=== PATIENT | male | born 1945 | race Hispanic/Latino ===

== ENCOUNTER 2018-03-28 17:08 | Emergency (ER) | payer SELFPAY ==
[2018-03-28 19:30] LABS: #Eosinphils 0.1 thou/uL (0.0-0.7); #Lymphocytes 1.9 thou/uL (1.20-3.40); #Monocytes 0.8 thou/uL (0.11-0.59); #Neutrophils 4.7 thou/uL (1.40-6.50); %Basophils 0.6 % (0.0-1.0); %Eosinophils 0.7 % (0.0-10.0); %Monocytes 10.6 % (0.0-10.0); %Neutrophils 63.1 % (42.0-75.0); Hemoglobin 12.3 g/dL (14.0-18.0); Mean Corpuscular HGB CONC 33.3 g/dL (32.0-36.0); Mean Corpuscular Hemoglobin 31.2 pg (27.0-31.0); Mean Corpuscular Volume 93.5 fL (78.0-98.0); Mean Platelet Volume 7.3 fL (7.4-10.4); Platelet Count 157 thou/uL (130-400); RBC Distribution Width 15.6 % (11.5-14.5); Red Blood Cell (RBC) Count 3.94 mill/uL (4.70-6.10); White Blood Cell (WBC) Count 7.4 thou/uL (4.8-10.8)
[2018-03-28 19:51] LABS: ALT (SGPT) 20 U/L (8-55); AST (SGOT) 22 U/L (5-34); Albumin 4.1 g/dL (3.4-4.8); Alkaline Phosphatase 236 U/L (40-150); Anion Gap 18 mmol/L (10-20); BUN (Urea Nitrogen) 31 mg/dL (8.4-25.7); Bilirubin, Total 0.3 mg/dL (0.2-1.2); CK (CPK) 25 U/L (30-200); Calc. Creatinine Clearance 0 mL/min (70-130); Calcium 9.5 mg/dL (7.8-10.44); Carbon Dioxide 19 mmol/L (23-31); Chloride 103 mmol/L (98-107); Estimated GFR-MDRD 67; Globulin 2.3 g/dL (2.4-3.5); Glucose 136 mg/dL (83-110); Protein, Total 6.4 g/dL (5.8-8.1); Sodium 136 mmol/L (136-145)
--- NOTE | 2018-03-28 20:55 | CT ---
CT LUMBAR SPINE WITHOUT CONTRAST: INDICATIONS: History of multiple myeloma and prior back surgeries. FINDINGS: There are diffuse lytic lesions involving the visualized pelvis, sacrum, and lower lumbar spine, cons istent with the patient's history of multiple myeloma. There is postsurgical change of a laminectomy at L4-L5. There are age indeterminate pathologic compression fractures of L5, L4, L3, L2, L2, and T12, of undet ermined chronicity. There is retropulsion of bone fragments from the posterior-inferior aspect of L4 , inducing at least moderate narrowing of the central canal, but this area has undergone some posteri or decompression. Some residual moderate narrowing is seen at the L4 level, due to the lamina and th e retropulsed bone fragments from L4. This is most evident on image 35 of the sagittal series. The visualized retroperitoneum demonstrates mild vascular calcifications involving the abdominal aort a. The visualized aspects of the unopacified kidneys are unremarkable. There are minimally displaced bilateral sacral ala and sacral promontory insufficiency fractures. IMPRESSION: Diffuse, moth-eaten lucencies involving the visualized thoracolumbosacral spine, consistent with the patient's history of multiple myeloma. There are numerous compression abnormalities involving T12 th rough L5, of undetermined chronicity. There are bilateral sacral ala and sacral promontory insuffici ency fractures of undetermined chronicity. There is post surgical change of decompression at L4-L5. There is residual moderate narrowing at L4 due to posterior retropulsion of bone fragments from the posterior aspect of L4. POS: JESUS
--- NOTE | 2018-03-28 21:04 | CT ---
CT THORACIC SPINE WITHOUT CONTRAST: INDICATIONS: History of low back pain with onset one year prior to arrival with worsening symptoms. History of mu ltiple myeloma. FINDINGS: There are numerous lucent lesions involving the visualized thoracolumbar spine, consistent with the p atient's history of multiple myeloma. There are multilevel pathologic compression abnormalities invo lving the thoracic spine, most pronounced at T6, T7, T10, and T12. No severe central canal narrowing is evident. There are numerous lytic lesions involving the visualized aspects of the ribs. There i s subsegmental volume loss involving both lower lobes. There are scattered vascular calcifications i nvolving the thoracic aorta. IMPRESSION: Inumerable lytic lesions involving the thoracolumbar spine, consistent with the patient's history of multiple myeloma. There are pathologic compression fractures involving all thoracic spine vertebrae but most severely affecting the T6, T7, T10, and T12 vertebral levels. POS: [facility]
[2018-03-28 21:36] LABS: Bilirubin Negative (Negative); Blood, Urine Negative (Negative); Clarity CLEAR (Clear); Glucose, Urine (Dipstick) Negative (Negative); Leukocyte Small (Negative); Nitrite Negative (Negative); Protein, Urine (Dipstick) Trace mg/dL (Neg-Trace); Specific Gravity, Urine 1.028 (1.002-1.036); Urobilinogen 0.2 mg/dL (0.2-1.0)
[2018-03-28 21:38] LABS: Bacteria/HPF None Seen HPF (None Seen); Hyaline Casts/LPF 7-10 HYALINE CAST LPF (0-3 Hyaline); Pathc Cast-AUWi Flag 0.58 (0-2.49); RBC/HPF 0-3 HPF (0-3); Squamous Epithelial 0-3 HPF (0-3)
[2018-03-28 21:47] LABS: Crystals/HPF 1+ CA OXALATE HPF (Negative)
[2018-03-28] MEDS ORDERED: HYDROcodone/Acetaminophen 10/325 mg Tablet ONE (22:12)
== END 2018-03-28 23:10 | disposition home or self-care (01) ==
LOC: ERS 17:08
DX: C90.00 Multiple myeloma not having achieved remission (principal); M48.56XA Collapsed vertebra, not elsewhere classified, lumbar region, initial encounter for fracture; E11.9 Type 2 diabetes mellitus without complications
CPT/HCPCS: 72128; 72131; 80053; 81003; 81015; 82550; 85025; 93005

== ENCOUNTER 2018-04-14 00:04 | Inpatient (IN) | payer MEDICAID, SELFPAY ==
[2018-04-14 00:19] LABS: Base Excess-Venous 0.7 mmol/L (0 (+/- 2.5)); Bicarbonate (HCO3v) 24.8 mmol/L (1.0-85.0); CO2 Tension (PvCO2) 36.9 mmHg (41.0-51.0); Calcium, Ionized 1.28 mmol/L (1.12-1.32); Hemoglobin - Calc 11.8 g/dL (12.0-18.0); Lactate 2.35 mmol/L (0.50-2.20); O2 Tension (PvO2) 37.9 mmHg (35.0-45.0); Potassium 4.4 mmol/L (3.4-4.7); T. Carbon Dioxide 25.9 mmol/L (1.0-85.0); pH (Venous) 7.435 (7.35-7.45); vO2 Saturation-calc 74.1 % (94-98)
[2018-04-14] MEDS ORDERED: Azithromycin 500 MG VIAL ONE (00:36)
[2018-04-14 00:38] LABS: INR-International Normal Ratio 1.1; PTT 31.8 SEC (22.9-36.1); Prothrombin Time 13.9 SEC (12.0-14.7)
[2018-04-14 00:50] LABS: ALT (SGPT) 14 U/L (8-55); AST (SGOT) 20 U/L (5-34); Albumin 3.9 g/dL (3.4-4.8); Alkaline Phosphatase 207 U/L (40-150); Anion Gap 19 mmol/L (10-20); BUN (Urea Nitrogen) 16 mg/dL (8.4-25.7); Bilirubin, Total 0.5 mg/dL (0.2-1.2); CK (CPK) 43 U/L (30-200); Calc. Creatinine Clearance 0 mL/min (70-130); Calcium 10.3 mg/dL (7.8-10.44); Carbon Dioxide 20 mmol/L (23-31); Chloride 103 mmol/L (98-107); Estimated GFR-MDRD 77; Globulin 2.9 g/dL (2.4-3.5); Glucose 222 mg/dL (83-110); Potassium 4.7 mmol/L (3.5-5.1); Protein, Total 6.8 g/dL (5.8-8.1); Sodium 137 mmol/L (136-145)
[2018-04-14 00:52] LABS: CKMB 1.3 ng/mL (0-6.6)
[2018-04-14 00:55] LABS: Band 12 % (5-11); Hemoglobin 11.4 g/dL (14.0-18.0); Lymphocytes 22 % (21-51); MDiff Complete? YES; Mean Corpuscular HGB CONC 32.7 g/dL (32.0-36.0); Mean Corpuscular Hemoglobin 29.9 pg (27.0-31.0); Mean Corpuscular Volume 91.5 fL (78.0-98.0); Mean Platelet Volume 7.4 fL (7.4-10.4); Monocytes 4 % (0-10); Myelocyte 2 % (0-0); Neutrophil 60 % (42-75); Platelet Count 171 thou/uL (130-400); RBC Distribution Width 15.4 % (11.5-14.5); White Blood Cell (WBC) Count 10.6 thou/uL (4.8-10.8)
[2018-04-14] MEDS ORDERED: cefTRIAXone\\ROCEPHIN 2 GM VIAL ONE (00:58)
[2018-04-14] MEDS ORDERED: Senokot S 8.6-50 MG TAB PO PRN (01:01)
[2018-04-14] MEDS ORDERED: Dextrose 50% Abboject 50 ML SYRINGE SLOW IVP PRN (01:07)
[2018-04-14] MEDS ORDERED: Dextrose 5% in Water 1,000 ML IV PRN (01:07)
[2018-04-14] MEDS ORDERED: HumaLOG 300 UNITS/3 ML VIAL SC PRN (01:07)
[2018-04-14 01:42] LABS: Bilirubin Negative (Negative); Blood, Urine Negative (Negative); Clarity CLEAR (Clear); Glucose, Urine (Dipstick) Negative (Negative); Leukocyte Negative (Negative); Nitrite Negative (Negative); Protein, Urine (Dipstick) 30 mg/dL (Neg-Trace); Specific Gravity, Urine 1.025 (1.002-1.036)
[2018-04-14 01:45] LABS: Bacteria/HPF None Seen HPF (None Seen); Pathc Cast-AUWi Flag 2.47 (0-2.49); Squamous Epithelial 0-3 HPF (0-3)
[2018-04-14 01:54] LABS: Hyaline Casts/LPF NONE SEEN LPF (0-3 Hyaline); RBC/HPF None Seen HPF (0-3); Renal Epithelial None Seen HPF (0-3); Transitional Epithelial NONE SEEN HPF (0-3)
[2018-04-14] MEDS: Vancomycin HCl 1 GM in Premix Bag 1 BAG IVPB SCH ×2 (03:08→16:00)
[2018-04-14] MEDS: Sodium Chloride 0.9% 1,000 ML IV SCH (03:08)
[2018-04-14 03:58] LABS: Anion Gap 12 mmol/L (10-20); BUN (Urea Nitrogen) 13 mg/dL (8.4-25.7); Calc. Creatinine Clearance 59 mL/min (70-130); Carbon Dioxide 21 mmol/L (23-31); Chloride 110 mmol/L (98-107); Estimated GFR-MDRD Greater than 90; Glucose 172 mg/dL (83-110); Lactic Acid 1.2 mmol/L (0.5-2.2); Potassium 4.1 mmol/L (3.5-5.1); Sodium 139 mmol/L (136-145)
[2018-04-14 04:08] LABS: Troponin I 0.068 ng/mL (< 0.028)
[2018-04-14 04:26] LABS: Band 11 % (5-11); Eosinophils 1 % (0-10); Hemoglobin 9.7 g/dL (14.0-18.0); Lymphocytes 9 % (21-51); MDiff Complete? YES; Mean Corpuscular HGB CONC 33.7 g/dL (32.0-36.0); Mean Corpuscular Hemoglobin 31.5 pg (27.0-31.0); Mean Corpuscular Volume 93.6 fL (78.0-98.0); Mean Platelet Volume 6.9 fL (7.4-10.4); Monocytes 6 % (0-10); Neutrophil 73 % (42-75); Platelet Count 129 thou/uL (130-400); RBC Distribution Width 15.3 % (11.5-14.5); Red Blood Cell (RBC) Count 3.09 mill/uL (4.70-6.10)
--- NOTE | 2018-04-14 04:41 | HP ---
CHIEF COMPLAINT: Shortness of breath. HISTORY OF PRESENT ILLNESS: The patient is a 72-year-old male with past medical history of diabetes and hypertension who presented to the hospital with complaints of shortness of breath and cough. The patient's family is at the bedside does not have very much information since the patient lives with another family member. The patient stated that for about a week he has been feeling some cough with phlegm and also has been feeling very weak. However, today patient started feeling very short of jean carlos ath and became very diaphoretic, at this time he was brought into the hospital for further evaluation . The patient denies any chest pain, any nausea, vomiting or diarrhea. The patient states that he h as been actually constipated and is also complaining of some lower abdominal pain that comes and goes . The patient denies any fevers or chills at home. PAST MEDICAL HISTORY: He has been diagnosed with multiple myeloma. PAST SURGICAL HISTORY: He has had some back surgery x2. SOCIAL HISTORY: He denies any alcohol use or drug use. He did smoke, but when he was very young. I t was only for social reasons. ALLERGIES: He has no known drug allergies. MEDICATIONS: The patient takes [place] 10/325 q.6 hours p.r.n. for pain and methocarbamol 500 mg 3 thad es a day. FAMILY HISTORY: Denies any history of heart disease or diabetes or hypertension. PHYSICAL EXAMINATION: VITAL SIGNS: Temperature of 99.0. The patient's initially oxygen saturations were 87 on room air; h owever, he was put on BiPAP and his sats have been 98%. His blood pressure has been in the 150s over 80s. The patient's initially pulse was 145 after giving him some IV fluids. His pulse is now 113. GENERAL: He is awake, alert, has a BiPAP on. He is lying flat. States he feels much better. CARDIOVASCULAR: S1, S2 present, tachycardia. LUNGS: He has got some coarse rhonchi all over his lung area. No wheezes noted. ABDOMEN: Soft. Bowel sounds are present x2. He does have mild pain upon palpation of his abdomen. EXTREMITIES: Lower extremity edema, none present. Pedal pulses are present x2. NEUROLOGIC: Neurovascular zamorano, no focal deficits noted. SKIN: No cuts or lesions noted. EKG, the patient had some incomplete right bundle branch block and also has some sinus tachycardic. The patient did have a chest x-ray, which indicated cardiomegaly and diffuse interstitial infiltrates . LABORATORY RESULTS: As of the following: WBC of 10.6, hemoglobin of 11.4, hematocrit of 34.8, plate lets were 171. Chemistry: Sodium of 137, potassium of 4.4, BUN of 16, creatinine of 0.96, glucose o f 222. Lactic acid was 2.4. Alkaline phosphatase was 207. His troponin x1 was negative. BNP was 7 8. ASSESSMENT AND PLAN: The patient is a very pleasant 72-year-old male who presents to the hospital wi th complaints of shortness of breath and increased sputum production. 1. Acute hypoxemic respiratory failure. The patient initially was oxygen saturation of 87. He was put on BiPAP, which improved to 98. The patient will be started on some DuoNebs, also, broad spectru m antibiotics and also I am hesitant to put him on some steroids. We are going to see what the chest CT scan shows and then we will go from there. The patient's BNP was completely normal, unlikely to be heart failure; however, we will continue to monitor. The patient is currently admitted to the [facility]. We will also check influenza to rule out flu and also we will order some Tessalon Perles for cough. 2. Multiple myeloma. The patient has a recent diagnosis of multiple myeloma. He was in our ER keiko ier this month for some lower back pain. At this time, CT lumbar and thoracic spine was done which i ndicated patient had diffuse lucencies involving the visualized thoracolumbosacral spine area c onsistent with multiple myeloma. I did talk with the family in regards to this. They stated that cu rrently patient is not on any treatment and again the family that patient resides that is not current ly present. 3. Deep venous thrombosis prophylaxis. We will put patient on some SCDs or heparin. 4. Lactic acidosis. This is most likely secondary to patient's problem #1. 5. Most likely pneumonia. We will continue to monitor. We will continue IV antibiotics.
[2018-04-14] MEDS: Piperacillin/Tazobactam 3.375 GM in Sodium Chloride 0.9% 100 ML IVPB SCH ×4 (05:32→23:05)
[2018-04-14] MEDS: Acetaminophen 325 MG TAB PO PRN ×3 (05:58→20:28)
[2018-04-14 08:03] LABS: Troponin I 0.121 ng/mL (< 0.028)
--- NOTE | 2018-04-14 08:03 | CT ---
PRELIMINARY REPORT/[facility]/EMERGENTY AFTER-HOURS PROCEDURE Addendum created by Oleg Torrez MD on 04/14/2018 2:55 AM Central Time ([place] & [place]) Age indeterminat e lumbar spine compression fractures are also present. Initial Report created on 04/14/2018 2:50 AM Central Time ([place] & [place]) CT Chest Without Contrast EXAM DATE/TIME: 04/14/2018 1:53 AM CLINICAL HISTORY: 72 years old, male; Pain and signs and symptoms; Abdominal tenderness; Abdominal pain; Generalized; D yspnea and shortness of breath; Other: SOB; Patient HX: M72 reports to ed C/O cough. PT has been weak , SOB, difficulty breathing, diaphoretic. PT C/O defuse abdominal pain; TECHNIQUE: Axial computed tomography images of the chest without intravenous contrast. COMPARISON: No relevant prior studies available. FINDINGS: Thyroid: The visualized thyroid gland is unremarkable. Lungs: There are moderate bilateral lung dependent consolidations/atelectasis. Pleural space: Normal. No pneumothorax. No pleural effusion. Heart: The cardiac structures are normal. Mediastinum: The trachea is normal. Pulmonary arteries: The pulmonary arteries are not enlarged. Aorta: The aorta is normal. Lymph nodes: Unremarkable. No enlarged lymph nodes. Bones/joints: There is diffuse mottled appearance of the bones, may represent severe diffuse osteopen ia, metabolic or possibly neoplastic change. There are healed right rib fractures. There are healed l eft rib fractures. There are age-indeterminate compression fractures within the mid thoracic spine. T here is healed fracture of the LEFT scapula. Soft tissues: Unremarkable. IMPRESSION: 1. There are moderate bilateral lung dependent consolidations/atelectasis. Correlate for infection ve rsus atelectasis. 2. There is diffuse mottled appearance of the bones, may represent severe diffuse osteopenia, metabol ic or possibly neoplastic change. CT Abdomen and Pelvis Without Intravenous Contrast EXAM DATE/TIME: 04/14/2018 1:53 AM CLINICAL HISTORY: 72 years old, male; Pain and signs and symptoms; Abdominal tenderness; Abdominal pain; Generalized; D yspnea and shortness of breath; Other: SOB; Patient HX: M72 reports to ed C/O cough. PT has been weak , SOB, difficulty breathing, diaphoretic. PT C/O defuse abdominal pain; TECHNIQUE: Axial computed tomography images of the abdomen and pelvis without intravenous contrast. COMPARISON: No relevant prior studies available. FINDINGS: ABDOMEN: Liver: The liver is within normal limits for this noncontrast study. Gallbladder and bile ducts: The gallbladder is normal. There is no evidence of biliary ductal dilatio n. Pancreas: The pancreas appears normal. No ductal dilatation. Spleen: The spleen is normal. Adrenals: The adrenal glands are normal. The adrenal glands are normal. Kidneys and ureters: The kidneys appear normal. No hydronephrosis. Stomach and bowel: The stomach is normal. Appendix: No appendix is specifically identified. No associated signs to suggest acute appendicitis. PELVIS: Bladder: The bladder is normal. Reproductive: The prostate gland and seminal vesicles are normal. ABDOMEN and PELVIS: Intraperitoneal space: Normal. No free air. No significant fluid collection. Bones/joints: There is diffuse mottled appearance of the bones, may represent severe diffuse osteopen ia, metabolic or possibly neoplastic change. There are healed fractures of the LEFT pubic rami with p ersistent displacement. Soft tissues: Unremarkable. Vasculature: Normal. No abdominal aortic aneurysm. Lymph nodes: Normal. No enlarged lymph nodes. IMPRESSION: There is diffuse mottled appearance of the bones, may represent severe diffuse osteopenia, metabolic or possibly neoplastic change. No acute abdominal pelvic pathology. Thank you for allowing us to participate in the care of your patient. Dictated and Authenticated by: Oleg Torrez MD 04/14/2018 2:50 AM Central Time ([place] & [place]) FINAL REPORT CHEST AND ABDOMEN AND PELVIC CT SCAN WITHOUT IV CONTRAST: Emergency after hour exam at 0159 hours, 04-14-18. FINDINGS: Bilateral posterior lower lobe parenchymal changes evidence for pneumonia and/or atelectasis. Very se may heterogeneous bony demineralization with some focal areas more concerning for the potential of n eoplastic change. Metabolic and very severe osteopenic changes are additional considerations as well. Multiple age indeterminate lumbar and thoracic vertebral compression fractures. Extensive bilateral rib fractures which appear old. No renal calculi or obstruction. No significant acute process with in the abdomen or pelvis. Left pelvic fractures which appear old. Code QA/Agree with [facility]. POS: [facility]
[2018-04-14] MEDS ORDERED: Prevnar 13-Val Conj/PF 0.5 ML SYRINGE IM ONE (09:00)
[2018-04-14] MEDS: Heparin 5,000 UNITS/ML VIAL SC SCH ×2 (09:00→16:00)
--- NOTE | 2018-04-14 09:38 | RAD ---
CHEST ONE VIEW: History: Dyspnea. Comparison: None. FINDINGS: There are bibasilar airspace opacities. There are bilateral rib fractures, nondisplaced. Bone are alena rly osteopenic. Multiple compression deformities throughout the skeleton. IMPRESSION: 1. Bibasilar airspace opacities may reflect atelectasis or infection. 2. Severe osteopenia versus diffuse myelomatous change. Work up for myeloma recommended. POS: PATRICIAH
--- NOTE | 2018-04-14 11:42 | CON ---
DATE OF CONSULTATION: 04/14/2018 HISTORY OF PRESENT ILLNESS: A 72-year-old gentleman from [place]. There are 2 daalizae rs who speak little Thai. The patient speaks no Thai, presented to the hospital with fever, ch ills, and a cough as per the daughter with a broken Thai. He apparently does not smoke, does not drink. PAST MEDICAL HISTORY: Pertinent for hypertension and diabetes. PAST SURGICAL HISTORY: Apparently, there are two back surgeries. MEDICATIONS: From home includes [place] for pain and methocarbamol for back pain. Previous surgeries as noted. ALLERGIES: Apparently none. REVIEW OF SYSTEMS: Otherwise, 10-point negative. PHYSICAL EXAMINATION: GENERAL: He is on a BiPAP when he came in. He is no longer in a BiPAP. His room air sats are 100%, pulse 104, blood pressure 140/80, respiration 28. CHEST: With minimal rhonchi and crackles. CARDIAC: Normal S1, S2, no gallops. ABDOMEN: Soft, no masses. NEUROLOGIC: He is awake, responsive. EXTREMITIES: No edema. LABORATORY DATA AND IMAGING: White count 10,000, H&H is 9 and 28, platelet count 129. His BNP was n ormal. Urine test was normal. He had a chest x-ray taken, which really did not show any acute infil trates. He underwent CT abdomen, chest, and pelvis which then shows bibasilar infiltrates with evidence of os teopenia in his lumbar spine. IMPRESSION: 1. bronchopneumonia. 2. Diabetes. 3. Hypertension. PLAN: He is on broad-spectrum antibiotics. No culture was ordered on his sputum . Deescalate antibiotics as the cultures are back. This is a 70 minute consultation note in which 50% was spent in direct patient care.
[2018-04-15] MEDS: Vancomycin HCl 1 GM in Premix Bag 1 BAG IVPB SCH ×2 (03:21→16:14)
[2018-04-15] MEDS: Piperacillin/Tazobactam 3.375 GM in Sodium Chloride 0.9% 100 ML IVPB SCH ×2 (05:34→13:01)
[2018-04-15 06:21] VITALS: BMI 26.6
[2018-04-15] MEDS: Acetaminophen 325 MG TAB PO PRN (09:12)
[2018-04-15] MEDS: guaiFENesin ER 600 MG TAB PO SCH ×2 (09:12→20:09)
[2018-04-15] MEDS: Sodium Chloride 0.9% 1,000 ML IV SCH (13:04)
--- NOTE | 2018-04-15 14:15 | PDOC.PN ---
- Subjective Encounter Start Date: 04/15/18 Encounter Start Time: 10:30 Subjective: pt up in bed feels much better - Objective Resuscitation Status: Resuscitation Status FULL:Full Resuscitation Vital Signs & Weight: Vital Signs (12 hours) Temp Pulse Resp BP Pulse Ox 04/15/18 12:00 97.3 F L 101 H 16 137/67 04/15/18 10:37 92 20 95 04/15/18 08:00 97.7 F 88 18 135/63 93 L 04/15/18 06:18 94 L 04/15/18 06:15 90 20 94 L 04/15/18 04:00 98.3 F 92 20 138/65 92 L 04/15/18 02:17 96 Weight Weight 141 lb Most Recent Monitor Data Heart Rate from ECG 98 NIBP 116/65 NIBP BP-Mean 82 Respiration from ECG 36 SpO2 100 I&O: 04/14/18 04/15/18 04/16/18 06:59 06:59 06:59 Intake Total 3480 2480 480 Output Total 410 710 Balance 3070 1770 480 Result Diagrams: 04/14/18 03:29 04/14/18 03:29 Additional Labs: Accuchecks 04/15/18 04/14/18 04/14/18 11:39 20:28 17:03 POC Glucose 143 H 138 H 133 H Phys Exam - Physical Examination Neck: no nodes, no JVD, supple, full ROM mild rhonchi Cardiovascular: RRR, no significant murmur, no rub, gallop, irregular Gastrointestinal: soft, non-tender, no distention, positive bowel sounds Musculoskeletal: no edema, pulses present, edema present Dx/Plan (1) Pneumonia Code(s): J18.9 - PNEUMONIA, UNSPECIFIED ORGANISM Status: Acute (2) Multiple myeloma Code(s): C90.00 - MULTIPLE MYELOMA NOT HAVING ACHIEVED REMISSION Status: Acute - Plan will continue abx for now -: will discontiue zosyn and continue vanco and levaquin -: pt to see oncology next week * . Review of Systems - Review of Systems Cardiovascular: negative: chest pain, palpitations, orthopnea, paroxysmal nocturnal dyspnea, edema, light headedness, other Gastrointestinal: negative: Nausea, Vomiting, Abdominal Pain, Diarrhea, Constipation, Melena, Hematochezia, Other Genitourinary: negative: Dysuria, Frequency, Incontinence, Hematuria, Retention , Other - Medications/Allergies Allergies/Adverse Reactions: Allergies Allergy/AdvReac Type Severity Reaction Status Date / Time No Known Allergies Allergy Verified 04/14/18 03:25 Medications: Current Medications Acetaminophen (Tylenol) 650 mg PO Q4H PRN PRN Reason: Headache/Fever/Mild Pain (1-3) Last Admin: 04/15/18 09:12 Dose: 650 mg Hydrocodone Bitart/Acetaminophen ([place] 10/325) 1 tab PO Q6HR [facility] Albuterol/Ipratropium (Duoneb) 3 ml NEB [id number] [facility] Last Admin: 04/15/18 10:37 Dose: 3 ml Dextrose/Water (Dextrose 50%) 25 gm SLOW IVP PRN PRN PRN Reason: Hypoglycemia Glucagon (Glucagon) 1 mg IM PRN PRN PRN Reason: Hypoglycemia Guaifenesin (Mucinex) 600 mg PO BID [facility] Last Admin: 04/15/18 09:12 Dose: 600 mg Sodium Chloride (Normal Saline 0.9%) 1,000 mls @ 30 mls/hr IV .Q24H [facility] Last Admin: 04/15/18 13:04 Dose: 1,000 mls Piperacillin Sod/Tazobactam (Sod 3.375 gm/ Sodium Chloride) 100 mls @ 200 mls/ hr IVPB Q6HR [facility] Last Admin: 04/15/18 13:01 Dose: 100 mls Vancomycin HCl 1 gm/ Device 200 mls @ 200 mls/hr IVPB 0300,1500 [facility] Last Admin: 04/15/18 03:21 Dose: 200 mls Dextrose/Water (D5w) 1,000 mls @ 0 mls/hr IV .Q0M PRN PRN Reason: Hypoglycemia Levofloxacin 500 mg/ Device 100 mls @ 100 mls/hr IVPB DAILY [facility] Last Admin: 04/15/18 09:12 Dose: 100 mls Insulin Human Lispro (Humalog) 0 units SC .MILD SLIDING SCALE PRN PRN Reason: Mild Correctional Scale Last Admin: 04/14/18 11:12 Dose: 2 unit Methocarbamol (Robaxin) 500 mg PO TID [facility] Senna/Docusate Sodium (Senokot S) 2 tab PO BIDPRN PRN PRN Reason: Constipation Sodium Chloride (Flush - Normal Saline) 10 ml IVF PRN PRN PRN Reason: Saline Flush Last Admin: 04/15/18 05:34 Dose: 10 ml
[2018-04-15 16:09] LABS: Vancomycin, Trough 11.1 ug/mL
[2018-04-15] MEDS: Methocarbamol 500 MG TAB PO SCH ×2 (16:15→20:09)
[2018-04-15] MEDS: HYDROcodone/Acetaminophen 10/325 mg Tablet PO SCH (18:18)
[2018-04-16] MEDS: HYDROcodone/Acetaminophen 10/325 mg Tablet PO SCH ×5 (00:42→23:07)
[2018-04-16] MEDS: Vancomycin HCl 1 GM in Premix Bag 1 BAG IVPB SCH (02:22)
[2018-04-16] MEDS: Methocarbamol 500 MG TAB PO SCH ×3 (09:40→20:32)
[2018-04-16] MEDS: guaiFENesin ER 600 MG TAB PO SCH ×2 (09:40→20:32)
[2018-04-16 10:04] LABS: Anion Gap 13 mmol/L (10-20); BUN (Urea Nitrogen) 6 mg/dL (8.4-25.7); Calc. Creatinine Clearance 93 mL/min (70-130); Calcium 9.3 mg/dL (7.8-10.44); Carbon Dioxide 20 mmol/L (23-31); Chloride 106 mmol/L (98-107); Estimated GFR-MDRD Greater than 90; Glucose 101 mg/dL (83-110); Potassium 3.2 mmol/L (3.5-5.1); Sodium 136 mmol/L (136-145)
[2018-04-16] MEDS: Sodium Chloride 0.9% 1,000 ML IV SCH (12:08)
--- NOTE | 2018-04-16 13:01 | PDOC.PN ---
- Subjective Encounter Start Date: 04/16/18 Encounter Start Time: 11:15 Subjective: pt up in bed feels better today - Objective Resuscitation Status: Resuscitation Status FULL:Full Resuscitation Vital Signs & Weight: Vital Signs (12 hours) Temp Pulse Resp BP Pulse Ox 04/16/18 10:04 85 16 98 04/16/18 07:20 98.7 F 73 18 137/52 L 93 L 04/16/18 07:01 78 16 97 04/16/18 04:00 98.6 F 62 18 135/73 92 L 04/16/18 02:23 68 18 98 Weight Weight 141 lb Most Recent Monitor Data Heart Rate from ECG 98 NIBP 116/65 NIBP BP-Mean 82 Respiration from ECG 36 SpO2 100 I&O: 04/15/18 04/16/18 04/17/18 06:59 06:59 06:59 Intake Total 2480 2125 Output Total 710 200 Balance 1770 1925 Result Diagrams: 04/14/18 03:29 04/16/18 09:29 Additional Labs: Accuchecks 04/16/18 04/16/18 04/15/18 11:04 05:27 20:37 POC Glucose 137 H 107 142 H 04/15/18 17:38 POC Glucose 173 H Phys Exam - Physical Examination Respiratory: wheezing present Cardiovascular: RRR, no significant murmur, no rub, gallop, irregular Gastrointestinal: soft, non-tender, no distention, positive bowel sounds Musculoskeletal: no edema, pulses present, edema present Dx/Plan (1) Pneumonia Code(s): J18.9 - PNEUMONIA, UNSPECIFIED ORGANISM Status: Acute (2) Multiple myeloma Code(s): C90.00 - MULTIPLE MYELOMA NOT HAVING ACHIEVED REMISSION Status: Acute - Plan will stop vanco and continue levaquin for now -: continue pain meds for his back pain -: pt has multiple myeloma has an appointment with onc next week * . Review of Systems - Review of Systems Respiratory: Cough, Shortness of Breath Cardiovascular: negative: chest pain, palpitations, orthopnea, paroxysmal nocturnal dyspnea, edema, light headedness, other Gastrointestinal: negative: Nausea, Vomiting, Abdominal Pain, Diarrhea, Constipation, Melena, Hematochezia, Other - Medications/Allergies Allergies/Adverse Reactions: Allergies Allergy/AdvReac Type Severity Reaction Status Date / Time No Known Allergies Allergy Verified 04/14/18 03:25 Medications: Current Medications Acetaminophen (Tylenol) 650 mg PO Q4H PRN PRN Reason: Headache/Fever/Mild Pain (1-3) Last Admin: 04/15/18 09:12 Dose: 650 mg Hydrocodone Bitart/Acetaminophen ([place] 10/325) 1 tab PO Q6HR [facility] Last Admin: 04/16/18 12:39 Dose: 1 tab Albuterol/Ipratropium (Duoneb) 3 ml NEB [id number] [facility] Last Admin: 04/16/18 10:04 Dose: 3 ml Dextrose/Water (Dextrose 50%) 25 gm SLOW IVP PRN PRN PRN Reason: Hypoglycemia Glucagon (Glucagon) 1 mg IM PRN PRN PRN Reason: Hypoglycemia Guaifenesin (Mucinex) 600 mg PO BID [facility] Last Admin: 04/16/18 09:40 Dose: 600 mg Sodium Chloride (Normal Saline 0.9%) 1,000 mls @ 30 mls/hr IV .Q24H [facility] Last Admin: 04/16/18 12:08 Dose: Not Given Dextrose/Water (D5w) 1,000 mls @ 0 mls/hr IV .Q0M PRN PRN Reason: Hypoglycemia Levofloxacin 500 mg/ Device 100 mls @ 100 mls/hr IVPB DAILY [facility] Last Admin: 04/16/18 09:40 Dose: 100 mls Insulin Human Lispro (Humalog) 0 units SC .MILD SLIDING SCALE PRN PRN Reason: Mild Correctional Scale Last Admin: 04/14/18 11:12 Dose: 2 unit Methocarbamol (Robaxin) 500 mg PO TID [facility] Last Admin: 04/16/18 09:40 Dose: 500 mg Senna/Docusate Sodium (Senokot S) 2 tab PO BIDPRN PRN PRN Reason: Constipation Sodium Chloride (Flush - Normal Saline) 10 ml IVF PRN PRN PRN Reason: Saline Flush Last Admin: 04/15/18 20:09 Dose: 10 ml
--- NOTE | 2018-04-16 16:55 | PRG ---
DATE OF SERVICE: 04/16/2018 SUBJECTIVE: Marisa Harden was seen today. His son says he is doing much better. OBJECTIVE: VITAL SIGNS: He is afebrile. Heart rates in the 70s, respiratory rate is 18, oximetry is 97 on room air, blood pressure 137/52. LUNGS: Still remarkable for crackles at his right base. HEART: Regular rhythm. ABDOMEN: Soft and nontender. He is encouraged to walk in the [place]. His electrolytes were remarkable only for a potassium of 3.2. IMPRESSION: Pneumonia, clinically improving. He is probably a candidate for discharge home within 24 hours. He will need to have a followup radiograph in 3-4 weeks after he was discharged. He does not need to stay on IV antibiotics at this point given his clinical improvement. SHAYY
[2018-04-17] MEDS: HYDROcodone/Acetaminophen 10/325 mg Tablet PO SCH ×4 (05:06→23:15)
[2018-04-17] MEDS: Sodium Chloride 0.9% 1,000 ML IV SCH (08:58)
[2018-04-17] MEDS: Methocarbamol 500 MG TAB PO SCH ×3 (09:01→19:53)
[2018-04-17] MEDS: guaiFENesin ER 600 MG TAB PO SCH ×2 (09:02→19:53)
[2018-04-17] MEDS ORDERED: Potassium Chloride 20 MEQ TAB PO SCH (09:30)
[2018-04-18] MEDS: HYDROcodone/Acetaminophen 10/325 mg Tablet PO SCH ×2 (04:38→11:56)
--- NOTE | 2018-04-18 07:55 | PDOC.PN ---
- Subjective Encounter Start Date: 04/17/18 Encounter Start Time: 10:30 Subjective: pt up in bed feels much better today - Objective Resuscitation Status: Resuscitation Status FULL:Full Resuscitation Vital Signs & Weight: Vital Signs (12 hours) Temp Pulse Resp BP Pulse Ox 04/18/18 06:27 83 16 98 04/18/18 02:01 77 18 99 04/17/18 23:42 99.1 F 77 16 143/78 H 04/17/18 22:00 76 16 99 04/17/18 20:00 97.9 F 91 16 153/80 H Weight Weight 141 lb Most Recent Monitor Data Heart Rate from ECG 98 NIBP 116/65 NIBP BP-Mean 82 Respiration from ECG 36 SpO2 100 Result Diagrams: 04/14/18 03:29 04/16/18 09:29 Additional Labs: Accuchecks 04/18/18 04/17/18 04/17/18 04:50 19:56 15:54 POC Glucose 108 162 H 115 H 04/17/18 11:02 POC Glucose 95 Phys Exam - Physical Examination Neck: no nodes, no JVD, supple, full ROM Respiratory: no wheezing, no rales, no rhonchi, wheezing present, clear to auscultation bilateral Cardiovascular: RRR, no significant murmur, no rub, gallop, irregular Gastrointestinal: soft, non-tender, no distention, positive bowel sounds Dx/Plan (1) Pneumonia Code(s): J18.9 - PNEUMONIA, UNSPECIFIED ORGANISM Status: Acute (2) Multiple myeloma Code(s): C90.00 - MULTIPLE MYELOMA NOT HAVING ACHIEVED REMISSION Status: Acute - Plan abx changed to oral will monitor for one more day -: possible discharge in am * . Review of Systems - Review of Systems Respiratory: negative: Cough, Dry, Shortness of Breath, Hemoptysis, SOB with Excertion, Pleuritic Pain, Sputum, Wheezing Cardiovascular: negative: chest pain, palpitations, orthopnea, paroxysmal nocturnal dyspnea, edema, light headedness, other Gastrointestinal: negative: Nausea, Vomiting, Abdominal Pain, Diarrhea, Constipation, Melena, Hematochezia, Other - Medications/Allergies Allergies/Adverse Reactions: Allergies Allergy/AdvReac Type Severity Reaction Status Date / Time No Known Allergies Allergy Verified 04/14/18 03:25 Medications: Current Medications Acetaminophen (Tylenol) 650 mg PO Q4H PRN PRN Reason: Headache/Fever/Mild Pain (1-3) Last Admin: 04/15/18 09:12 Dose: 650 mg Hydrocodone Bitart/Acetaminophen (Dent 10/325) 1 tab PO Q6HR [facility] Last Admin: 04/18/18 04:38 Dose: 1 tab Albuterol/Ipratropium (Duoneb) 3 ml NEB [id number] [facility] Last Admin: 04/18/18 06:27 Dose: 3 ml Dextrose/Water (Dextrose 50%) 25 gm SLOW IVP PRN PRN PRN Reason: Hypoglycemia Glucagon (Glucagon) 1 mg IM PRN PRN PRN Reason: Hypoglycemia Guaifenesin (Mucinex) 600 mg PO BID [facility] Last Admin: 04/17/18 19:53 Dose: 600 mg Sodium Chloride (Normal Saline 0.9%) 1,000 mls @ 30 mls/hr IV .Q24H [facility] Last Admin: 04/17/18 08:58 Dose: Not Given Dextrose/Water (D5w) 1,000 mls @ 0 mls/hr IV .Q0M PRN PRN Reason: Hypoglycemia Insulin Human Lispro (Humalog) 0 units SC .MILD SLIDING SCALE PRN PRN Reason: Mild Correctional Scale Last Admin: 04/14/18 11:12 Dose: 2 unit Levofloxacin (Levaquin) 500 mg PO 0600 [facility] Last Admin: 04/18/18 04:38 Dose: 500 mg Methocarbamol (Robaxin) 500 mg PO TID [facility] Last Admin: 04/17/18 19:53 Dose: 500 mg Senna/Docusate Sodium (Senokot S) 2 tab PO BIDPRN PRN PRN Reason: Constipation Sodium Chloride (Flush - Normal Saline) 10 ml IVF PRN PRN PRN Reason: Saline Flush Last Admin: 04/15/18 20:09 Dose: 10 ml
--- NOTE | 2018-04-18 08:01 | PRG ---
DATE OF SERVICE: 04/18/2018 Marisa Harden is seen today. With the help of head of mathematics he says he has got a cough, but otherw ise better. PHYSICAL EXAMINATION: VITAL SIGNS: Sats are 98 on room air, respiration 16, pulse 83, blood pressure 143/78. CHEST: Chest reveals no wheezing or crackles. CARDIAC: Normal S1-S2. No gallops. ABDOMEN: Soft. No masses. IMPRESSION: 1. Pneumonia. 2. History of apparently multiple myeloma. PLAN: He is improved. He can be discharged home on oral medication. Follow up with primary physici an.
[2018-04-18] MEDS: guaiFENesin ER 600 MG TAB PO SCH (08:45)
[2018-04-18] MEDS: Methocarbamol 500 MG TAB PO SCH (08:45)
[2018-04-18] MEDS: Sodium Chloride 0.9% 1,000 ML IV SCH (10:15)
[2018-04-18 11:48] LABS: Anion Gap 13 mmol/L (10-20); BUN (Urea Nitrogen) 8 mg/dL (8.4-25.7); Calc. Creatinine Clearance 89 mL/min (70-130); Calcium 9.3 mg/dL (7.8-10.44); Carbon Dioxide 21 mmol/L (23-31); Chloride 105 mmol/L (98-107); Estimated GFR-MDRD Greater than 90; Glucose 116 mg/dL (83-110); Potassium 3.8 mmol/L (3.5-5.1); Sodium 135 mmol/L (136-145)
[2018-04-18 12:14] LABS: Band 4 % (5-11); Hemoglobin 10.3 g/dL (14.0-18.0); Lymphocytes 16 % (21-51); MDiff Complete? YES; Mean Corpuscular HGB CONC 34.8 g/dL (32.0-36.0); Mean Corpuscular Hemoglobin 31.8 pg (27.0-31.0); Mean Corpuscular Volume 91.3 fL (78.0-98.0); Monocytes 2 % (0-10); Neutrophil 75 % (42-75); PLT Morphology Comment Appears Adequate; Platelet Count 161 thou/uL (130-400); RBC Distribution Width 15.1 % (11.5-14.5); RBC Morphology Normal; Reactive Lymphocytes 3 % (0-10); Red Blood Cell (RBC) Count 3.24 mill/uL (4.70-6.10); White Blood Cell (WBC) Count 5.3 thou/uL (4.8-10.8)
[2018-04-18 15:26] VITALS: BP 125/74; TEMP 98
--- NOTE | 2018-04-19 09:53 | DIS ---
CHIEF COMPLAINT: Shortness of breath. HOSPITAL COURSE: Patient is a very pleasant 72-year-old male who initially presented to the hospital with complaints of shortness of breath and cough. The patient was initially seen in the ER, concern s for possible pneumonia; however, chest x-ray was normal. The patient was put on broad-spectrum ant ibiotics and also Pulmonology had seen this patient. The patient has recent diagnosis of multiple my eloma; however, has not seen his oncologist as of yet. The patient does have an appointment with an oncologist in [place] on Wednesday this week. The patient continues to improve and wants to go h ome. The patient's medications are as following: DISCHARGE MEDICATIONS: 1. Metformin mg b.i.d. 2. Robaxin 500 mg t.i.d. 3. Wickes 10/25 mg q.6 hours p.r.n. 4. Colace 100 mg b.i.d. 5. Mucinex 600 mg b.i.d. 6. Florastor 250 mg daily. 7. Levaquin 500 mg daily. 8. DuoNeb 3 mL neb q.i.d. PHYSICAL EXAMINATION: VITAL SIGNS: Temperature 98.0, 99, 18, 92% room air, 125/74. GENERAL: He is awake, alert, oriented x3, has no pain distress. CARDIOVASCULAR: S1, S2 present. No murmurs, rubs or gallops. ABDOMEN: Soft, nontender. Bowel sounds are present x2. EXTREMITIES: No edema. Pedal pulses are present x2. The patient again will be discharged home. I have provided patient Dr. Morejon' or Hematology Bj smith's number here since they are interested in moving his care here due to his family lives here. The patient will continue his home medications. Also, he has an appointment on this week with the oncol [place] and also recommended the daughter for the patient to have a primary care doctor. DISCHARGE DIAGNOSES: 1. Shortness of breath most likely secondary to community-acquired pneumonia. 2. History of multiple myeloma. 3. Sepsis, which has been resolved.
== END 2018-04-18 16:03 | disposition home or self-care (01) | DRG 871 ==
LOC: ERS 00:04 → CCU 01:53 → 2NO 11:45 → T4-A 04-15 22:38
PROVIDERS: ADMIT Internal Medicine; ATTEND Internal Medicine
PROC: 5A09357 Assistance with Respiratory Ventilation, Less than 24 Consecutive Hours, Continuous Positive Airway Pressure (ICD-10-PCS; principal; 2018-04-14)
DX: A41.9 Sepsis, unspecified organism (principal); J96.01 Acute respiratory failure with hypoxia; J18.9 Pneumonia, unspecified organism; C90.00 Multiple myeloma not having achieved remission; E87.2 Acidosis; Z87.891 Personal history of nicotine dependence; Z79.84 Long term (current) use of oral hypoglycemic drugs; Z79.899 Other long term (current) drug therapy
CPT/HCPCS: 36415; 36416; 71045; 71250; 74177; 80048; 80053; 80202; 81003; 81015; 82330; 82550; 82553; 82803; 83605; 83880; 84484; 85025; 85610; 85730; 87070; 87205; 87804; 90471; 90670; 93005; 93306; 94640; 94660; 94760; 96360; 96365; 96368; G0009; G8978-GP-CN; G8979-GP-CK; J0456; J0696; J1644; J1956; J2543; J3370; J7050; J7620

== ENCOUNTER 2018-06-01 14:38 | Day surgery (SDC) | payer OTHER, SELFPAY ==
[2018-06-01] MEDS ORDERED: BORTEZOMIB SC SCH ×2 (15:00)
[2018-06-01] MEDS ORDERED: Dexamethasone 4 MG TAB PO SCH (15:00)
[2018-06-01] MEDS ORDERED: PRE FILLED SC SCH (15:00)
[2018-06-01 15:37] VITALS: BP 154/70; TEMP 97.9
== END 2018-06-01 18:55 | disposition home or self-care (01) ==
LOC: ONC/OP 14:38
PROVIDERS: ATTEND Internal Medicine Hematology & Oncology
DX: Z51.11 Encounter for antineoplastic chemotherapy (principal); C90.00 Multiple myeloma not having achieved remission; E11.9 Type 2 diabetes mellitus without complications; Z87.891 Personal history of nicotine dependence; Z79.84 Long term (current) use of oral hypoglycemic drugs; Z79.899 Other long term (current) drug therapy
CPT/HCPCS: 36415; 80053; 82248; 83615; 83883; 84100; 84550; 96401

== ENCOUNTER 2018-06-08 14:33 | Day surgery (SDC) | payer OTHER ==
[2018-06-08 15:14] VITALS: BP 141/64; TEMP 97.7
[2018-06-08] MEDS ORDERED: BORTEZOMIB SC SCH (15:30)
[2018-06-08] MEDS ORDERED: ADMIXTURE FEE SC SCH (15:30)
== END 2018-06-08 16:01 | disposition home or self-care (01) ==
LOC: ONC/OP 14:33
PROVIDERS: ATTEND Internal Medicine Hematology & Oncology
DX: Z51.11 Encounter for antineoplastic chemotherapy (principal); C90.00 Multiple myeloma not having achieved remission; E11.9 Type 2 diabetes mellitus without complications; Z87.891 Personal history of nicotine dependence; Z79.84 Long term (current) use of oral hypoglycemic drugs; Z79.899 Other long term (current) drug therapy
CPT/HCPCS: 96401; J9041

== ENCOUNTER 2018-06-15 14:55 | Day surgery (SDC) | payer OTHER ==
[2018-06-15] MEDS ORDERED: Dexamethasone 4 MG TAB PO SCH (15:30)
[2018-06-15] MEDS ORDERED: BORTEZOMIB SC SCH (15:30)
[2018-06-15 16:38] VITALS: BP 125/55; TEMP 98.2
== END 2018-06-15 16:39 | disposition home or self-care (01) ==
LOC: ONC/OP 14:55
PROVIDERS: ATTEND Internal Medicine Hematology & Oncology
DX: Z51.11 Encounter for antineoplastic chemotherapy (principal); C90.00 Multiple myeloma not having achieved remission; E11.9 Type 2 diabetes mellitus without complications; Z87.891 Personal history of nicotine dependence; Z79.84 Long term (current) use of oral hypoglycemic drugs; Z79.899 Other long term (current) drug therapy
CPT/HCPCS: 96401; J9041

== ENCOUNTER 2018-06-22 14:28 | Day surgery (SDC) | payer OTHER ==
[2018-06-22] MEDS ORDERED: ADMIXTURE FEE SC SCH (14:45)
[2018-06-22] MEDS ORDERED: BORTEZOMIB SC SCH (14:45)
[2018-06-22 14:56] VITALS: BP 131/63; TEMP 97.6
== END 2018-06-22 15:06 | disposition home or self-care (01) ==
LOC: ONC/OP 14:28
PROVIDERS: ATTEND Internal Medicine Hematology & Oncology
DX: Z51.11 Encounter for antineoplastic chemotherapy (principal); C90.00 Multiple myeloma not having achieved remission; E11.9 Type 2 diabetes mellitus without complications; Z87.891 Personal history of nicotine dependence; Z79.84 Long term (current) use of oral hypoglycemic drugs; Z79.899 Other long term (current) drug therapy
CPT/HCPCS: 36415; 80053; 82248; 83615; 84100; 84550; 96401; J9041

== ENCOUNTER 2018-06-29 14:29 | Day surgery (SDC) | payer OTHER ==
[2018-06-29 15:01] VITALS: BP 135/63; TEMP 97.8
== END 2018-06-29 15:30 | disposition home or self-care (01) ==
LOC: ONC/OP 14:29
PROVIDERS: ATTEND Internal Medicine Hematology & Oncology
DX: Z51.11 Encounter for antineoplastic chemotherapy (principal); C90.00 Multiple myeloma not having achieved remission; E11.9 Type 2 diabetes mellitus without complications; Z87.891 Personal history of nicotine dependence; Z79.84 Long term (current) use of oral hypoglycemic drugs; Z79.899 Other long term (current) drug therapy
CPT/HCPCS: 36415; 83883; 96401; J9041

== ENCOUNTER 2018-07-06 01:13 | Day surgery (SDC) | payer OTHER ==
[2018-07-06] MEDS ORDERED: Dexamethasone 4 MG TAB PO SCH (03:00)
[2018-07-06 14:29] VITALS: BP 138/68; TEMP 98.3
== END 2018-07-06 15:25 | disposition home or self-care (01) ==
LOC: ONC/OP 01:13
PROVIDERS: ATTEND Internal Medicine Hematology & Oncology
DX: Z51.11 Encounter for antineoplastic chemotherapy (principal); C90.00 Multiple myeloma not having achieved remission; E11.9 Type 2 diabetes mellitus without complications; Z79.84 Long term (current) use of oral hypoglycemic drugs; Z79.2 Long term (current) use of antibiotics; Z98.890 Other specified postprocedural states; Z79.899 Other long term (current) drug therapy
CPT/HCPCS: 96401

== ENCOUNTER 2018-07-13 00:25 | Day surgery (SDC) | payer OTHER ==
[2018-07-13] MEDS ORDERED: Dexamethasone 4 MG TAB PO SCH (02:30)
[2018-07-13 12:30] VITALS: BP 148/70; TEMP 98
== END 2018-07-13 13:41 | disposition home or self-care (01) ==
LOC: ONC/OP 00:25
PROVIDERS: ATTEND Internal Medicine Hematology & Oncology
DX: Z51.11 Encounter for antineoplastic chemotherapy (principal); C90.00 Multiple myeloma not having achieved remission; Z79.84 Long term (current) use of oral hypoglycemic drugs; Z79.2 Long term (current) use of antibiotics; Z79.899 Other long term (current) drug therapy
CPT/HCPCS: 36415; 80053; 82248; 83615; 83883; 84100; 84550; 96401; J9041

== ENCOUNTER → 2018-07-27 | Day surgery (SDC) | payer OTHER | LOC: ONC/OP 00:24 | PROVIDERS: ATTEND Internal Medicine Hematology & Oncology | DX: Z51.11 Encounter for antineoplastic chemotherapy (principal); C90.00 Multiple myeloma not having achieved remission; E11.9 Type 2 diabetes mellitus without complications; Z87.891 Personal history of nicotine dependence | CPT/HCPCS: 96401 ==

== ENCOUNTER 2018-08-03 15:18 | Day surgery (SDC) | payer OTHER ==
[2018-08-03 15:49] VITALS: BP 134/68; TEMP 97.5
== END 2018-08-03 15:49 | disposition home or self-care (01) ==
LOC: ONC/OP 15:18
PROVIDERS: ATTEND Internal Medicine Hematology & Oncology
DX: Z51.11 Encounter for antineoplastic chemotherapy (principal); C90.00 Multiple myeloma not having achieved remission; E11.9 Type 2 diabetes mellitus without complications; Z87.891 Personal history of nicotine dependence; Z79.84 Long term (current) use of oral hypoglycemic drugs; Z79.2 Long term (current) use of antibiotics; Z79.899 Other long term (current) drug therapy
CPT/HCPCS: 36415; 80053; 82248; 83615; 83883; 84100; 84550; 96401

== ENCOUNTER 2018-08-10 14:25 | Day surgery (SDC) | payer OTHER ==
[2018-08-10 14:35] VITALS: BP 145/68; TEMP 97.6
== END 2018-08-10 14:52 | disposition home or self-care (01) ==
LOC: ONC/OP 14:25
PROVIDERS: ATTEND Internal Medicine Hematology & Oncology
DX: Z51.11 Encounter for antineoplastic chemotherapy (principal); C90.00 Multiple myeloma not having achieved remission; Z87.891 Personal history of nicotine dependence; Z79.84 Long term (current) use of oral hypoglycemic drugs; Z79.2 Long term (current) use of antibiotics; Z79.899 Other long term (current) drug therapy
CPT/HCPCS: 96401

== ENCOUNTER 2018-08-17 14:20 | Day surgery (SDC) | payer OTHER ==
[2018-08-17 14:29] VITALS: BP 144/67; TEMP 97.7
== END 2018-08-17 14:55 | disposition home or self-care (01) ==
LOC: ONC/OP 14:20
PROVIDERS: ATTEND Internal Medicine Hematology & Oncology
DX: Z51.11 Encounter for antineoplastic chemotherapy (principal); C90.00 Multiple myeloma not having achieved remission; E11.9 Type 2 diabetes mellitus without complications; Z87.891 Personal history of nicotine dependence
CPT/HCPCS: 96401

== ENCOUNTER 2018-08-24 12:13 | Day surgery (SDC) | payer OTHER ==
[2018-08-24 12:35] VITALS: BP 141/66; TEMP 98.1
== END 2018-08-24 13:41 | disposition home or self-care (01) ==
LOC: ONC/OP 12:13
PROVIDERS: ATTEND Internal Medicine Hematology & Oncology
DX: Z51.11 Encounter for antineoplastic chemotherapy (principal); C90.00 Multiple myeloma not having achieved remission; E11.9 Type 2 diabetes mellitus without complications
CPT/HCPCS: 36415; 80053; 82248; 83615; 83883; 84100; 84550; 96401

== ENCOUNTER 2018-08-31 13:53 | Day surgery (SDC) | payer OTHER ==
[2018-08-31 13:58] VITALS: BP 137/65; TEMP 98.4
== END 2018-08-31 14:06 | disposition home or self-care (01) ==
LOC: ONC/OP 13:53
PROVIDERS: ATTEND Internal Medicine Hematology & Oncology
DX: Z51.11 Encounter for antineoplastic chemotherapy (principal); C90.00 Multiple myeloma not having achieved remission; C79.51 Secondary malignant neoplasm of bone
CPT/HCPCS: 96401; J9041

== ENCOUNTER 2018-09-07 13:33 | Day surgery (SDC) | payer OTHER ==
[~2018-09-07 13:33] MED LIST: Dexamethasone 4 MG TAB PO SCH; Zoledronic Acid 4 MG in Sodium Chloride 0.9% 100 ML IVPB SCH
[2018-09-07 13:49] VITALS: BP 131/65; TEMP 97.7
== END 2018-09-07 14:48 | disposition home or self-care (01) ==
LOC: ONC/OP 13:33
PROVIDERS: ATTEND Internal Medicine Hematology & Oncology
DX: Z51.11 Encounter for antineoplastic chemotherapy (principal); C90.00 Multiple myeloma not having achieved remission; C79.51 Secondary malignant neoplasm of bone
CPT/HCPCS: 36415; 82565; 96365; 96401; J3489; J3490; J9041

== ENCOUNTER 2018-09-14 15:47 | Day surgery (SDC) | payer OTHER ==
[~2018-09-14 15:47] MED LIST changes: -Zoledronic Acid 4 MG in Sodium Chloride 0.9% 100 ML IVPB SCH; +valACYclovir 500 MG TAB PO SCH
[2018-09-14 16:21] VITALS: BP 147/68; TEMP 98.1
== END 2018-09-14 16:22 | disposition home or self-care (01) ==
LOC: ONC/OP 15:47
PROVIDERS: ATTEND Internal Medicine Hematology & Oncology
DX: Z51.11 Encounter for antineoplastic chemotherapy (principal); C90.00 Multiple myeloma not having achieved remission; C79.51 Secondary malignant neoplasm of bone
CPT/HCPCS: 36415; 80053; 82248; 83615; 84100; 84550; 96401

== ENCOUNTER 2018-09-21 14:36 | Day surgery (SDC) | payer OTHER ==
[2018-09-21 15:00] VITALS: BP 131/62; TEMP 97.8
== END 2018-09-21 15:12 | disposition home or self-care (01) ==
LOC: ONC/OP 14:36
PROVIDERS: ATTEND Internal Medicine Hematology & Oncology
DX: Z51.11 Encounter for antineoplastic chemotherapy (principal); C90.00 Multiple myeloma not having achieved remission; C79.51 Secondary malignant neoplasm of bone
CPT/HCPCS: 96401

== ENCOUNTER 2018-09-28 14:06 | Day surgery (SDC) | payer OTHER ==
[2018-09-28 14:43] VITALS: BP 128/58; TEMP 97.6
== END 2018-09-28 14:43 | disposition home or self-care (01) ==
LOC: ONC/OP 14:06
PROVIDERS: ATTEND Internal Medicine Hematology & Oncology
DX: Z51.11 Encounter for antineoplastic chemotherapy (principal); C90.00 Multiple myeloma not having achieved remission; C79.51 Secondary malignant neoplasm of bone
CPT/HCPCS: 96401; J9041

== ENCOUNTER 2018-10-05 15:09 | Day surgery (SDC) | payer OTHER ==
[2018-10-05 16:12] VITALS: BP 125/61; TEMP 98
== END 2018-10-05 16:12 | disposition home or self-care (01) ==
LOC: ONC/OP 15:09
PROVIDERS: ATTEND Internal Medicine Hematology & Oncology
DX: Z51.11 Encounter for antineoplastic chemotherapy (principal); C90.00 Multiple myeloma not having achieved remission; C79.51 Secondary malignant neoplasm of bone
CPT/HCPCS: 36415; 80053; 82248; 83615; 84100; 84550; 96401

== ENCOUNTER 2018-10-12 15:35 | Day surgery (SDC) | payer OTHER ==
[2018-10-12 15:43] VITALS: BP 120/56; TEMP 97.7
== END 2018-10-12 15:43 | disposition home or self-care (01) ==
LOC: ONC/OP 15:35
PROVIDERS: ATTEND Internal Medicine Hematology & Oncology
DX: Z51.11 Encounter for antineoplastic chemotherapy (principal); C90.00 Multiple myeloma not having achieved remission; C79.51 Secondary malignant neoplasm of bone
CPT/HCPCS: 96401

== ENCOUNTER 2018-10-26 11:29 | Day surgery (SDC) | payer OTHER ==
[2018-10-26 11:41] VITALS: BP 131/67; TEMP 98
== END 2018-10-26 12:08 | disposition home or self-care (01) ==
LOC: ONC/OP 11:29
PROVIDERS: ATTEND Internal Medicine Hematology & Oncology
DX: Z51.11 Encounter for antineoplastic chemotherapy (principal); C90.00 Multiple myeloma not having achieved remission; C79.51 Secondary malignant neoplasm of bone
CPT/HCPCS: 96401

== ENCOUNTER 2018-11-02 13:43 | Day surgery (SDC) | payer OTHER ==
[2018-11-02 14:49] VITALS: BP 134/62; TEMP 97.5
[2018-11-03] MEDS ORDERED: Prevnar 13-Val Conj/PF 0.5 ML SYRINGE IM ONE (10:00)
== END 2018-11-02 14:52 | disposition home or self-care (01) ==
LOC: ONC/OP 13:43
PROVIDERS: ATTEND Internal Medicine Hematology & Oncology
DX: Z51.11 Encounter for antineoplastic chemotherapy (principal); C90.00 Multiple myeloma not having achieved remission; C79.51 Secondary malignant neoplasm of bone; Z79.84 Long term (current) use of oral hypoglycemic drugs; Z79.891 Long term (current) use of opiate analgesic; Z79.899 Other long term (current) drug therapy
CPT/HCPCS: 83883; 96401

== ENCOUNTER 2018-11-09 14:28 | Day surgery (SDC) | payer OTHER ==
[2018-11-09 14:43] VITALS: BP 134/63; TEMP 97.8
== END 2018-11-09 14:58 | disposition home or self-care (01) ==
LOC: ONC/OP 14:28
PROVIDERS: ATTEND Internal Medicine Hematology & Oncology
DX: Z51.11 Encounter for antineoplastic chemotherapy (principal); C90.00 Multiple myeloma not having achieved remission; C79.51 Secondary malignant neoplasm of bone
CPT/HCPCS: 96372

== ENCOUNTER 2018-11-14 15:46 | Outpatient (CLI) | payer OTHER ==
--- NOTE | 2018-11-14 16:04 | RAD ---
EXAM: Chest 2 views: HISTORY: Chest pain and shortness of breath COMPARISON: 07/29/2018 FINDINGS: There is an enlarged but stable cardiomediastinal silhouette. Increased interstitial markings are st able. There is no evidence of consolidation, mass, or pleural effusion. Remote right rib fractures are seen. Degenerative changes are seen in the spine. IMPRESSION: Cardiomegaly without evidence of acute cardiopulmonary disease
== END 2018-11-14 15:47 | disposition home or self-care (01) ==
LOC: RAD 15:46
PROVIDERS: ATTEND Internal Medicine Pulmonary Disease
DX: R06.00 Dyspnea, unspecified (principal); I51.7 Cardiomegaly
CPT/HCPCS: 71046

== ENCOUNTER 2018-11-16 14:31 | Day surgery (SDC) | payer OTHER ==
[2018-11-16 14:43] VITALS: BP 156/76; TEMP 98
== END 2018-11-16 15:05 | disposition home or self-care (01) ==
LOC: ONC/OP 14:31
PROVIDERS: ATTEND Internal Medicine Hematology & Oncology
DX: Z51.11 Encounter for antineoplastic chemotherapy (principal); C90.00 Multiple myeloma not having achieved remission; C79.51 Secondary malignant neoplasm of bone
CPT/HCPCS: 96372

== ENCOUNTER 2018-11-23 14:01 | Day surgery (SDC) | payer OTHER ==
[2018-11-23 15:07] VITALS: BP 126/69; TEMP 97.9
== END 2018-11-23 15:12 | disposition home or self-care (01) ==
LOC: ONC/OP 14:01
PROVIDERS: ATTEND Internal Medicine Hematology & Oncology
DX: Z51.11 Encounter for antineoplastic chemotherapy (principal); C90.00 Multiple myeloma not having achieved remission; C79.51 Secondary malignant neoplasm of bone
CPT/HCPCS: 96401

== ENCOUNTER 2018-11-30 13:33 | Day surgery (SDC) | payer OTHER ==
[~2018-11-30 13:33] MED LIST changes: -Dexamethasone 4 MG TAB PO SCH; +Zoledronic Acid 4 MG in Sodium Chloride 0.9% 100 ML IVPB SCH; -valACYclovir 500 MG TAB PO SCH
[2018-11-30 14:36] VITALS: BP 135/62; TEMP 98.2
== END 2018-11-30 14:43 | disposition home or self-care (01) ==
LOC: ONC/OP 13:33
PROVIDERS: ATTEND Internal Medicine Hematology & Oncology
DX: Z51.11 Encounter for antineoplastic chemotherapy (principal); C90.00 Multiple myeloma not having achieved remission; C79.51 Secondary malignant neoplasm of bone
CPT/HCPCS: 82565; 96365; 96401; J3489; J3490; J9041

== ENCOUNTER 2018-12-07 10:30 | Day surgery (SDC) | payer OTHER ==
[~2018-12-07 10:30] MED LIST changes: -Zoledronic Acid 4 MG in Sodium Chloride 0.9% 100 ML IVPB SCH; +valACYclovir 500 MG TAB PO SCH
[2018-12-07 11:18] VITALS: BP 147/68; TEMP 98.4
== END 2018-12-07 15:52 | disposition home or self-care (01) ==
LOC: ONC/OP 10:30
PROVIDERS: ATTEND Internal Medicine Hematology & Oncology
DX: Z51.11 Encounter for antineoplastic chemotherapy (principal); C90.00 Multiple myeloma not having achieved remission; C79.51 Secondary malignant neoplasm of bone
CPT/HCPCS: 36415; 80053; 82248; 83615; 83883; 84100; 84550; 96401

== ENCOUNTER 2019-02-22 12:52 | Day surgery (SDC) | payer OTHER ==
[2019-02-22 13:24] VITALS: BP 144/65; TEMP 97.8
[2019-02-22] MEDS ORDERED: Zoledronic Acid 4 MG in Sodium Chloride 0.9% 100 ML IVPB SCH (13:30)
[2019-02-22] MEDS ORDERED: Sodium Chloride 0.9% 20 ML ONE (13:38)
== END 2019-02-22 14:51 | disposition home or self-care (01) ==
LOC: ONC/OP 12:52
PROVIDERS: ATTEND Internal Medicine Hematology & Oncology
DX: C90.00 Multiple myeloma not having achieved remission (principal); C79.51 Secondary malignant neoplasm of bone
CPT/HCPCS: 36415; 80053; 82248; 83615; 83883; 84100; 84550; 96365; J3489; J3490

== ENCOUNTER 2019-03-30 16:26 | Inpatient (IN) | payer OTHER, SELFPAY ==
--- NOTE | 2019-03-30 16:51 | RAD ---
Exam: Chest 2 views: HISTORY: Cough COMPARISON: 11/14/2018 FINDINGS: Minimal cardiomegaly. Very severe bony demineralization with numerous healed rib fractures and thorac olumbar spine compression fractures. Fairly extensive linear and interstitial parenchymal changes throughout both lungs. All these changes appear stable. No confluent pneumonia or pleural effusion. IMPRESSION: Extensive stable chronic lung changes involving the lungs. Atherosclerosis of the aorta with ectasia. Bony demineralization with multiple stable healed rib and thoracic and lumbar spine fractures.
[2019-03-30] MEDS ORDERED: Cefepime 2 GM VIAL ONE (17:12)
[2019-03-30 17:22] LABS: Actual Bicarbonate (HCO3a) 20.5 mEq/L (22-28); Analyzer IN Cardio ER; Base Excess (BEa) -2.3 mEq/L (-2.0 to +3.0); CO2 Tension 29.5 mmHg (35.0-45.0); Calcium, Ionized 1.06 mmol/L (1.12-1.30); Carboxyhemoglobin (COHb) 0.1 gm% (0.0-3.0); Hemoglobin (Hb) 12.1 g/dL (14.0-18.0); Potassium - ABG Lab 3.59 mmol/L (3.70-5.30); pH, Arterial 7.46 (7.35-7.45)
[2019-03-30 17:24] LABS: ALV-art Gradient 58.955 (0-20); O2 Tension (PaO2) 53.9 mmHg (> 70.0); Puncture Site L.R.
[2019-03-30 17:28] LABS: Hemoglobin 11.7 g/dL (14.0-18.0); Mean Corpuscular HGB CONC 33.3 g/dL (32.0-36.0); Mean Corpuscular Hemoglobin 32.6 pg (27.0-31.0); Mean Corpuscular Volume 97.9 fL (78.0-98.0); RBC Distribution Width 14.7 % (11.5-14.5); Red Blood Cell (RBC) Count 3.59 mill/uL (4.70-6.10); White Blood Cell (WBC) Count 2.1 thou/uL (4.8-10.8)
[2019-03-30 17:46] LABS: ALT (SGPT) 19 U/L (8-55); AST (SGOT) 28 U/L (5-34); Albumin 4.4 g/dL (3.4-4.8); Alkaline Phosphatase 82 U/L (40-110); Anion Gap 17 mmol/L (10-20); BUN (Urea Nitrogen) 13 mg/dL (8.4-25.7); CK (CPK) 237 U/L (30-200); Calc. Creatinine Clearance 0 mL/min (70-130); Carbon Dioxide 20 mmol/L (23-31); Chloride 102 mmol/L (98-107); Estimated GFR-MDRD 63; Globulin 2.7 g/dL (2.4-3.5); Glucose 127 mg/dL (83-110); Lipase 13 U/L (8-78); Potassium 3.8 mmol/L (3.5-5.1); Protein, Total 7.1 g/dL (5.8-8.1); Sodium 135 mmol/L (136-145)
[2019-03-30 17:55] LABS: Band 34 % (5-11); Elliptocytes SLIGHT = 2-5 cells (100X) (0-1/hpf); Lymphocytes 20 % (21-51); MDiff Complete? YES; Mean Platelet Volume 8.2 fL (7.4-10.4); Metamyelocyte 1 % (0-0); Monocytes 11 % (0-10); Neutrophil 23 % (42-75); Ovalocytes MODERATE= 6-15 cells (100X) (0-1/hpf); Platelet Count 90 thou/uL (130-400); Platelet Morphology Comment Appears Decreased; Polychromasia SLIGHT = 2-3 cells (100X) (0-2/hpf); Reactive Lymphocytes 11 % (0-10); Tear Drops SLIGHT = 2-5 cells (100X) (0-1/hpf)
[2019-03-30 17:56] LABS: Bacteria/HPF None Seen HPF (None Seen); Bilirubin Negative (Negative); Blood, Urine 2+ (Negative); Clarity Clear (Clear); Glucose, Urine (Dipstick) Normal (Negative); Leukocyte Negative Leu/uL (Negative); Nitrite Negative (Negative); Protein, Urine (Dipstick) 100 mg/dL (Neg-Trace); Squamous Epithelial None Seen HPF (0-3); Urobilinogen Normal mg/dL (Less than 2); WBC/HPF 0-3 HPF (0-3)
[2019-03-30] MEDS ORDERED: Albuterol Sulfate 2.5 mg/3 ml Neb ONE (18:01)
[2019-03-30] MEDS ORDERED: Lorazepam 2 MG/ML VIAL ONE ×3 (18:32→20:42)
[2019-03-30] MEDS ORDERED: Magnesium 2 GM/50 ML BAG (IN WATER) ONE (19:08)
[2019-03-30] MEDS ORDERED: Dexamethasone 4 mg/ml Vial ONE (19:08)
--- NOTE | 2019-03-30 19:36 | PDOC.FPRHP ---
- History of Present Illness Chief Complaint: Fever History of Present Illness: 73yo , palestinian-speaking male with h/o multiple myeloma currently undergoing tx, restrictive lung disease followed by Dr. Owens 2/2 MM who presents with acute hypoxic respiratory failure and sepsis. Family obtained from daughters at beside as patient currently delirious and on Bipap during exam. Daughters state that he has have subjective fevers, cough, congestion for past 3 days. Treating with nyquil and OTCs. Awoke this am at 0400 with dyspnea. Given Albuterol neb with improvement of sxs. Decreased PO intake. Seen by Dr. Meza in clinic and sent to ED for further eval. Denies any abdominal pain. Being tx for multiple myeloma. Last treatment on Feb 22 and next due on Apr 15. Family reports not eating well and not acting himself. States usually he is mentally with it. States he is acting more confused and agitated. Pt reports some pain in the chest. ED Course: Initially had increased work of breathing, initial ABG 7.46/29.5/53.9 thus placed on biPAP. O2 sat improved and tachypnia improved. Given Mg, Decadron, 2L NS bolus, Duoneb, vanc, and cefepime. - Allergies/Adverse Reactions Allergies Allergy/AdvReac Type Severity Reaction Status Date / Time No Known Allergies Allergy Verified 04/14/18 03:25 - Home Medications Medication Instructions Recorded Confirmed Type HYDROcodone/Acetaminophen [[place] 10 - 325 mg PO Q6HR PRN 04/14/18 03/30/19 History 10-325 Tablet] metFORMIN [Glucophage] 500 mg PO BID 04/14/18 03/30/19 History ALButerol Sulfate [Ventolin] 3 ml NEB Q6HR PRN 03/30/19 03/30/19 History Docusate [Colace] 100 mg PO DAILY 03/30/19 03/30/19 History HYDROcodone Bit/APAP 10/325 [[place] 2 tab PO Q6HR PRN 03/30/19 03/30/19 History 10/325] Lenalidomide [Revlimid] 10 mg PO DAILY 03/30/19 03/30/19 History Comments: After med rec taken from family and clinic records. - History PMHx: Multiple Myeloma, DMII, restrictive lung disease PSHx: Back surgery x2, prostate surgery FHx: Family has diabetes Social: . Former tob user. Currently no tob, etoh, illicits. - Review of Systems General: reports: fever/chills, weight/appetite/sleep changes (decreased appetite), fatigue. denies: night sweats Eyes: denies: vision changes ENT: reports: nasal congestion. denies: rhinorrhea Respiratory: reports: cough, congestion, shortness of breath Cardiovascular: reports: chest pain (with cough). denies: palpitation, edema Gastrointestinal: denies: nausea, vomiting, diarrhea, constipation, abdominal pain Genitourinary: denies: incontinence, dysuria Skin: denies: rashes Neurological: reports: weakness (generalized). denies: numbness, syncope, seizure - Vital signs BP: [144/80] HR: [130] RR: [24] Tmax: [103.1] Pox: [100]% on [BIPAP] Wt: [63] - Physical Exam Constitutional: other (On Bipap, appears confused and slightly aggitated, requring family to keep calm and still) HEENT: EOMI, MMM Neck: supple, trachea midline Heart: normal S1/S2, no murmurs/rubs/gallops, pulses present, no edema, other ( Tachycardia, regular rhythm) Lungs: other (course breath sounds BL, end-expiratory wheeze throughout) Abdomen: soft, non-tender, bowel sounds present, other (mildly distended but family reports this appears at baseline) Musculoskeletal: normal structure Neurological: no focal deficit Skin: no rash/lesions Heme/Lymphatic: no unusual bruising or bleeding Psychiatric: other (family states he has been more confused and disoriented today, no known history of dementia. Usually A/O x3 and aware of situation.) FMR H&P: Results - Labs Result Diagrams: 03/31/19 04:26 03/31/19 04:26 Lab results: WBC 2.1 thou/uL (4.8-10.8) L 03/30/19 17:16 Hgb 11.7 g/dL (14.0-18.0) L 03/30/19 17:16 Hct 35.2 % (42.0-52.0) L 03/30/19 17:16 MCV 97.9 fL (78.0-98.0) 03/30/19 17:16 Plt Count 90 thou/uL (130-400) L 03/30/19 17:16 Band Neuts % (Manual) 34 % (5-11) H 03/30/19 17:16 ABG pH 7.46 (7.35-7.45) H 03/30/19 17:18 ABG pCO2 29.5 mmHg (35.0-45.0) L 03/30/19 17:18 ABG pO2 53.9 mmHg (> 70.0) L* 03/30/19 17:18 Sodium 135 mmol/L (136-145) L 03/30/19 17:16 Potassium 3.8 mmol/L (3.5-5.1) 03/30/19 17:16 Chloride 102 mmol/L (98-107) 03/30/19 17:16 Carbon Dioxide 20 mmol/L (23-31) L 03/30/19 17:16 BUN 13 mg/dL (8.4-25.7) 03/30/19 17:16 Creatinine 1.13 mg/dL (0.7-1.3) 03/30/19 17:16 Glucose 127 mg/dL (83-110) H 03/30/19 17:16 Lactic Acid 1.8 mmol/L (0.5-2.2) 03/30/19 17:16 Calcium 9.0 mg/dL (7.8-10.44) 03/30/19 17:16 Total Bilirubin 1.0 mg/dL (0.2-1.2) 03/30/19 17:16 AST 28 U/L (5-34) 03/30/19 17:16 ALT 19 U/L (8-55) 03/30/19 17:16 Alkaline Phosphatase 82 U/L (40-110) 03/30/19 17:16 Creatine Kinase 237 U/L (30-200) H 03/30/19 17:16 B-Natriuretic Peptide 80.7 pg/mL (0-100) 03/30/19 17:16 Serum Total Protein 7.1 g/dL (5.8-8.1) 03/30/19 17:16 Albumin 4.4 g/dL (3.4-4.8) 03/30/19 17:16 Lipase 13 U/L (8-78) 03/30/19 17:16 Urine Ketones Trace mg/dL (Negative) A 03/30/19 17:40 Urine Blood 2+ (Negative) A 03/30/19 17:40 Urine Nitrite Negative (Negative) 03/30/19 17:40 Ur Leukocyte Esterase Negative Kiesha/uL (Negative) 03/30/19 17:40 Urine RBC 7-10 HPF (0-3) A 03/30/19 17:40 Urine WBC 0-3 HPF (0-3) 03/30/19 17:40 Ur Squamous Epith Cells None Seen HPF (0-3) 03/30/19 17:40 Urine Bacteria None Seen HPF (None Seen) 03/30/19 17:40 - Radiology Interpretation Chest x-ray Status: image reviewed by me, report reviewed by me (Extensive stable chronic lung changes involving the lungs. Atherosclerosis of aorta w/ ectasia. Bony demineralization w/ multiple stable healed rib and thoracic and lumbar spine fx. ) FMR H&P: A/P - Problem List (1) Sepsis due to pneumonia Current Visit: Yes Status: Acute Code(s): J18.9 - PNEUMONIA, UNSPECIFIED ORGANISM; A41.9 - SEPSIS, UNSPECIFIED ORGANISM (2) Acute respiratory failure with hypoxia Current Visit: Yes Status: Acute Code(s): J96.01 - ACUTE RESPIRATORY FAILURE WITH HYPOXIA (3) DMII (diabetes mellitus, type 2) Current Visit: Yes Status: Chronic Qualifiers: Diabetes mellitus alf insulin use: without service counselor use (4) Multiple myeloma Current Visit: Yes Status: Chronic Code(s): C90.00 - MULTIPLE MYELOMA NOT HAVING ACHIEVED REMISSION Qualifiers: Multiple myeloma remission status: not in remission Qualified Code(s): C90.00 - Multiple myeloma not having achieved remission - Plan 73yo male with MM currently undergoing tx and restrictive lung disease presents with sepsis 2/2 suspected PNA and acute hypoxic respiratory failure. #Acute hypoxic respiratory failure 2/2 sepsis 2/2 suspected pneumonia - Initial ABG 7.46/29.5/53.9 on RA, placed on BiPAP in ED - On exam, tachypnea improving and satting 100% - Will continue BiPAP and wean as tolerated, will obtain repeat ABG prior to wean - Given Cefepime and Vanc in ED, will cont for suspected PNA - CXR demonstrated chronic lung changes, possible patchy infiltrates - Will admit to IMCU and monitor closely - discussed with family possible need for intubation if clinical status worsened, voiced agreement and understand - Given Decadron in ED, will anticipate continuation of steroids, apprec Pulm recs - Will obtain respiratory viral panel and procal and crp - BCx and UCx pending #Acute metabolic encephalopathy - A/o x3 at baseline, no h/o dementia - likely 2/2 sepsis - will monitor mentation as beginning treatment #Multiple Myeloma - Known to Dr. Morejon, currently undergoing chemotherapy - Associated restrictive lung disease, followed by Dr. Owens - Consult Hem/Onc and Pulm in AM, apprec assistance #Neutropenic fever - ANC 1197 - WBC 2.1 with 34% bands and 23%PMN - Neutropenic precautions - Apprec Onc recs #DMII - Controlled on metoformin alone, will hold at this time - A6h accuchecks, mild SS, hyperglycemic protocol Code: Full - spoke with family, and daughters, at bedside as pt is unable to make own medical decisions at this time 2/2 to acute illness VTE: Lovenox IVF: LR @120cc/hr GI PPx: Pepcid Diet: NPO to advance to CC as respiratory status and mental status improves PCP: [facility] Disposition/LOS: Admit to IMCU. Repeat ABG and wean BiPAP as tolerated. Cont Abx. Neutropenic precautions. Monitor respiratory status. Pulm and Onc consults in AM. Anticipate hospitalization >48hours. FMR H&P: Upper Level - Pertinent history I was present with Dr. Espinosa during the HPI. I scribed the above document. I made edits as needed. - Pertinent findings Pt is altered. Pt is confused from baseline per daughters. Pt has some agitation. Pt has BIPAP on. Resp: Coarse breath sounds noted bilaterally. Rales and crackles noted bilaterally. RR in mid 20's. Cardio: Tachy, Regular rhythm. Abdomen: Mildly distended- daughters report baseline. NTTP, no masses noted. Ext: No edema noted. - Plan Date/Time: 03/30/191929 I, Krunal Ferguson PGY-3, have evaluated this patient and agree with findings/ plan as outlined by editing intern resident. Pertinent changes/additions are listed here. I made edits to plan above. See above for detailed plan. Pt ANC was calculated to be 1100. Pt has neutropenic fever at this time. Pt has sepsis 2/2 likely underlying PNA. Pt had acute hypoxic respiratory failure currently on BIPAP. Pt O2 sats on monitor above 90 but first ABG showed low O2 to 50. Repeat ABG ordered during evaluation and showed improvement. Likely will try and wean off BIPAP once up in IMCU. Will tx with empiric abx cefepime and vanc. Pt has MM currently on chemo. will consult oncology in AM. Pt has restrictive lung disease 2/2 MM due to bone deformities. Seen by Dr. Owens in past. Will continue mj duonebs. Given steroids in ER and will continue. Will again wean off BIPAP as tolerated. Repeat ABG showed improvement. Will admit to IMCU and place on neutropenic precautions. Will closely monitor. Addendum - Attending - Attending Attestation Date/Time: 03/31/19 5311 I personally evaluated the patient and discussed the management with Dr. Espinosa. I agree with the History, Examination, Assessment and Plan documented above with any addition or exceptions noted below.
[2019-03-30 20:09] LABS: Analyzer IN Cardio ER; Base Excess (BEa) -7.1 mEq/L (-2.0 to +3.0); CO2 Tension 29.7 mmHg (35.0-45.0); Calcium, Ionized 1.09 mmol/L (1.12-1.30); Carboxyhemoglobin (COHb) 0.3 gm% (0.0-3.0); Hemoglobin (Hb) 10.4 g/dL (14.0-18.0); O2 Tension (PaO2) 128.4 mmHg (> 70.0); Potassium - ABG Lab 3.49 mmol/L (3.70-5.30); pH, Arterial 7.38 (7.35-7.45)
[2019-03-30] MEDS ORDERED: Enoxaparin Sodium 40 MG/0.4 ML SYRINGE SC SCH (22:12)
[2019-03-30] MEDS ORDERED: CCU Electrolyte Replacement 1 EACH IVPB ONE (22:12)
[2019-03-30] MEDS ORDERED: Ondansetron PF 4 MG/2 ML Vial IVP PRN ×2 (22:12→22:13)
[2019-03-30] MEDS ORDERED: Ondansetron ODT 4 MG TAB SL PRN (22:13)
[2019-03-30] MEDS ORDERED: Lorazepam 2 MG/ML VIAL SLOW IVP SCH (22:15)
[2019-03-30] MEDS ORDERED: Sodium Chloride 0.9% 1,000 ML IV SCH (22:15)
[2019-03-30] MEDS ORDERED: HYDROcodone/Acetaminophen 10/325 mg Tablet PO PRN (22:36)
--- NOTE | 2019-03-30 22:40 | PDOC.BPN ---
- Brief Progress Note Date/Time: 03/30/19 3670 I personally evaluated the patient and discussed the management with Dr. Batista and Marty in the ER at the time of admission. I agree with the History, Examination, Assessment and Plan as discussed. H&P is forthcoming. My exam is consistent with bilateral pneumonia adn bronchitis in a patient with underlying restrictive lung disease. THis si causing Sepsis in the constext of a febriel neutropenic patient. He has responded well to bipap in the ER. Empiric antibiotics initiated. Cultures obtained. I avhe iscusse dhis diagnosis adn severity of ilness with his daughters. They concur he is very ill. We disussed how if he detiorated he may require Et placement adn sedation. They are hopeful that will not be necessary but agreeable if needed. Mr. Harden is not talking coherently. This is due to illness and Ativan given in the ER. He currently lacks capacity for informed consent. His is his surrogate decisions maker.
[2019-03-30 22:41] VITALS: BMI 23.1
[2019-03-30] MEDS: Lactated Ringer's 1,000 ML IV SCH (22:45)
[2019-03-30] MEDS ORDERED: PHOS-NAK 1 PKT PACK PO PRN ×2 (22:47)
[2019-03-30] MEDS ORDERED: Potassium Phosphate 12 MMOL in Sodium Chloride 0.9% 250 ML 250 ML IV PRN (22:47)
[2019-03-30] MEDS ORDERED: Potassium Phosphate 15 MMOL in Sodium Chloride 0.9% 250 ML 250 ML IV PRN (22:47)
[2019-03-30] MEDS ORDERED: Potassium Chloride 40 MEQ in Premix Bag 1 BAG IVPB PRN (22:47)
[2019-03-30] MEDS ORDERED: Magnesium 2 GM/50 ML 2 GM in Premix Bag 1 BAG IVPB PRN (22:47)
[2019-03-30] MEDS ORDERED: CCU ELECTROLYTE REPLACEMENT PROTOCOL FS PRN (22:47)
[2019-03-30] MEDS ORDERED: Potassium Chloride 40 MEQ in Sodium Chloride 0.9% 250 ML 250 ML IVPB PRN (22:47)
[2019-03-30] MEDS ORDERED: Potassium Chloride 20 MEQ TAB PO PRN (22:47)
[2019-03-30] MEDS ORDERED: Potassium Phosphate 9 MMOL in Sodium Chloride 0.9% 100 ML IVPB PRN (22:47)
[2019-03-30] MEDS ORDERED: Magnesium Oxide 400 MG TAB PO PRN ×2 (22:47)
[2019-03-30 22:50] LABS: ALV-art Gradient 262.275 (0-20); Puncture Site LRA
[2019-03-31 02:32] LABS: Legionella Urinary Ag Negative (Negative); Strep pneumo Urine Ag POSITIVE (NEGATIVE)
[2019-03-31] MEDS ORDERED: Dextrose 5% in Water 1,000 ML IV PRN (03:19)
[2019-03-31] MEDS ORDERED: Dextrose 50% Abboject 50 ML SYRINGE SLOW IVP PRN (03:19)
[2019-03-31 05:09] LABS: #Lymphocytes 0.4 thou/uL (1.20-3.40); #Monocytes 0.2 thou/uL (0.11-0.59); #Neutrophils 1.4 thou/uL (1.40-6.50); %Basophils 1.1 % (0.0-1.0); %Eosinophils 0.2 % (0.0-10.0); %Lymphocytes 17.4 % (21.0-51.0); %Monocytes 10.6 % (0.0-10.0); %Neutrophils 70.7 % (42.0-75.0); Hemoglobin 10.2 g/dL (14.0-18.0); Mean Corpuscular HGB CONC 33.7 g/dL (32.0-36.0); Mean Corpuscular Hemoglobin 32.9 pg (27.0-31.0); Mean Corpuscular Volume 97.6 fL (78.0-98.0); Mean Platelet Volume 7.9 fL (7.4-10.4); Platelet Count 60 thou/uL (130-400); RBC Distribution Width 14.6 % (11.5-14.5); Red Blood Cell (RBC) Count 3.09 mill/uL (4.70-6.10)
[2019-03-31 05:17] LABS: ALT (SGPT) 16 U/L (8-55); AST (SGOT) 24 U/L (5-34); Albumin 3.5 g/dL (3.4-4.8); Alkaline Phosphatase 61 U/L (40-110); Anion Gap 14 mmol/L (10-20); BUN (Urea Nitrogen) 16 mg/dL (8.4-25.7); Bilirubin, Total 0.7 mg/dL (0.2-1.2); Calc. Creatinine Clearance 57 mL/min (70-130); Calcium 7.8 mg/dL (7.8-10.44); Carbon Dioxide 20 mmol/L (23-31); Chloride 108 mmol/L (98-107); Estimated GFR-MDRD 72; Globulin 2.1 g/dL (2.4-3.5); Glucose 188 mg/dL (83-110); Potassium 3.8 mmol/L (3.5-5.1); Protein, Total 5.6 g/dL (5.8-8.1); Sodium 138 mmol/L (136-145)
[2019-03-31] MEDS: Cefepime 2 GM in Sodium Chloride 0.9% 100 ML IVPB SCH ×2 (05:23→17:50)
[2019-03-31] MEDS: Vancomycin HCl 500 MG in Sodium Chloride 0.9% 100 ML IVPB SCH ×2 (05:25→17:50)
--- NOTE | 2019-03-31 05:47 | PDOC.FM ---
- Subjective Subjective: Pt states his pain is controlled. He states his breathing is ok. Nursing reports he has been off of BiPAP since being on the floor. He has been resting since. He currently does not complain of any nausea, vomiting, fever, chest pain , or severe pain. - Objective MAR Reviewed: Yes Vital Signs & Weight: Vital Signs (12 hours) Temp Pulse Resp Pulse Ox 03/31/19 03:43 97.8 F 03/31/19 00:45 97.2 F L 03/31/19 00:17 100 03/30/19 22:39 84 26 H 99 03/30/19 22:25 100 03/30/19 21:54 100.8 F H Weight Weight 63.911 kg Most Recent Monitor Data Heart Rate from ECG 83 NIBP 147/74 NIBP BP-Mean 98 Respiration from ECG 20 SpO2 99 I&O: 03/29/19 03/30/19 03/31/19 06:59 06:59 06:59 Intake Total 720 Output Total 200 Balance 520 Result Diagrams: 03/31/19 04:26 03/31/19 04:26 Phys Exam - Physical Examination Constitutional: NAD HEENT: moist MMs Neck: no JVD Respiratory: wheezing present (Diffusely) Coarse upper air way radiation, rhonchi present Cardiovascular: RRR, no significant murmur Gastrointestinal: soft, non-tender, no distention, positive bowel sounds Musculoskeletal: no edema, pulses present Neurological: moves all 4 limbs Psychiatric: A&O x 3 Skin: cap refill <2 seconds Dx/Plan (1) Acute respiratory failure with hypoxia Code(s): J96.01 - ACUTE RESPIRATORY FAILURE WITH HYPOXIA Status: Acute (2) Sepsis due to pneumonia Code(s): J18.9 - PNEUMONIA, UNSPECIFIED ORGANISM; A41.9 - SEPSIS, UNSPECIFIED ORGANISM Status: Acute (3) DMII (diabetes mellitus, type 2) Status: Chronic Qualifiers: Diabetes mellitus intermediate accountant insulin use: without usp use (4) Multiple myeloma Code(s): C90.00 - MULTIPLE MYELOMA NOT HAVING ACHIEVED REMISSION Status: Chronic Qualifiers: Multiple myeloma remission status: not in remission Qualified Code(s): C90.00 - Multiple myeloma not having achieved remission (5) Pneumonia Code(s): J18.9 - PNEUMONIA, UNSPECIFIED ORGANISM Status: Acute - Plan Plan: This is a 73 yo male with a pmh of multiple myeloma, restrictive lung disease, DM2, HTN Acute hypoxic respiratory failure 2/2 sepsis 2/2 Strep. pneumoniae -Respiratory status improving -Maintaining broad abx therapy, pending blood cultures, Vanc and cefipime (03/30) -Urine Strep pneumo antigen positive -Procal elevated suggestive of PNA Neutropenic fever -Pt is currently undergoing chemotherapy for multiple myeloma -Will consult Dr. Morejon, Oncologist -Neutropenic precautions Pancytopenia -Likely 2/2 chemotherapy -Will monitor, no need for transfusions at this time Multiple myeloma -Consult Dr. Morejon, appreciate recommendations -Continue pain regimen DM2 -Continue home meds, will likely be elevated due to steroids -Pending A1c HTN -Continue home meds
[2019-03-31] MEDS: Lactated Ringer's 1,000 ML IV SCH ×2 (06:24→17:50)
[2019-03-31 07:38] LABS: Hemoglobin A1c 5.1 % (4.0-6.0)
[2019-03-31] MEDS ORDERED: FLU VACC TS2019-20(65YR UP)/PF 180 MCG/0.5 ML SYRINGE IM ONE (09:00)
[2019-03-31] MEDS ORDERED: Vancomycin HCl 1 GM in Premix Bag 1 BAG IVPB SCH (09:00)
[2019-03-31] MEDS ORDERED: Prevnar 13-Val Conj/PF 0.5 ML SYRINGE IM ONE (09:00)
[2019-03-31] MEDS ORDERED: Simethicone Chewable 80 MG TAB PO PRN (09:17)
--- NOTE | 2019-03-31 09:39 | RAD ---
XR Abdomen 1 View/KUB HISTORY: Abdominal distention COMPARISON: None. FINDINGS: There is gaseous distention of the colon do not see any signs for obstruction. No free air demonstrated on the supine film. The bones are demineralized. Marked arthritic changes of the spine are noted. There appear to be postoperative changes of the lower lumbar spine. IMPRESSION: Mild gaseous distention of the colon without signs of obstruction.
--- NOTE | 2019-03-31 10:16 | PRG ---
DATE OF SERVICE: 03/31/2019 Mr. Harden is a 73-year-old man with a history of multiple myeloma, on chemotherapy. He presented to the clinic yesterday and was noted to be confused and in respiratory distress. He was transferred to the ER and subsequently admitted with acute hypoxic respiratory failure and neutropenia. Chest x-ray showed possible pneumonia and he appeared to be septic. He was therefore started on broad-spectrum antibiotics in addition to BiPAP. This morning, he is resting quietly, in no distress. We will continue to manage with the reporting consultant. We will also consult his oncologist. Job ID: [id number]
[2019-03-31] MEDS: Enoxaparin Sodium 40 MG/0.4 ML SYRINGE SC SCH (11:14)
[2019-03-31] MEDS: Famotidine/PF 20 mg/2ml Vial SLOW IVP SCH ×2 (11:14→21:39)
[2019-03-31] MEDS ORDERED: predniSONE 20 MG TAB PO SCH (18:45)
[2019-03-31] MEDS: Simethicone Chewable 80 MG TAB PO SCH ×2 (19:42→21:52)
--- NOTE | 2019-03-31 21:00 | CON ---
DATE OF CONSULTATION: REASON FOR CONSULT: Multiple myeloma. HISTORY OF PRESENT ILLNESS: Mr. Harden is a pleasant 73-year-old [place]-speaking male who has multiple myeloma. He was on Velcade, Revlimid, and dexamethasone until November of 2018; at which point, he was placed on maintenance Revlimid 10 mg daily. He also gets Zometa every 3 months. He was last seen in February by Dr. Morejon. He remained in remission. His baseline white count was 2.6 with ANC of 1.5. Over the last several days, he has began having increasing shortness of breath with fevers and presented to the emergency room for evaluation. He was placed on BiPAP for hypoxia. Cultures were drawn, positive for RSV A. We were asked to see the patient regarding his myeloma. PAST MEDICAL HISTORY: 1. Multiple myeloma. 2. Restrictive lung disease. 3. Diabetes. PAST SURGICAL HISTORY: Lumbar surgery. ALLERGIES: NO KNOWN DRUG ALLERGIES. HOME MEDICATIONS: 1. Revlimid 10 mg daily. 2. Metformin 1000 mg b.i.d. 3. Hydrocodone p.r.n. FAMILY HISTORY: Diabetes. SOCIAL HISTORY: . Has 6 children. Former smoker. No alcohol or illicit drug use. REVIEW OF SYSTEMS: CONSTITUTIONAL: Positive for fever, chills, and night sweats. EYES: No blurred or double vision. ENT: No pain, hoarseness, sore throat, or dysphagia. CV: No chest pain, palpitations, or syncope. RESPIRATORY: Positive for cough and shortness of breath. : No dysuria or hematuria. MUSCULOSKELETAL: Positive for back pain. SKIN: No rash or pruritus. HEMATOLOGICAL: No bleeding, bruising, or clotting. NEUROLOGIC: Positive for weakness. No headache. PHYSICAL EXAMINATION: VITAL SIGNS: Temperature is 97.7 with T-max of 100.8, pulse is 69, respiratory rate 27, blood pressure is 127/70, he is 99% on 1 L. GENERAL: This is a chronically ill-appearing male, in no acute distress. HEENT: Normocephalic, atraumatic. Pupils are equal and reactive to light. NECK: Supple. CV: Regular rate and rhythm. LUNGS: Wheezing throughout. ABDOMEN: Soft and nontender. Bowel sounds are positive. EXTREMITIES: No clubbing or cyanosis. SKIN: No rash. HEMATOLOGICAL: No petechiae or purpura. NEUROLOGIC: Nonfocal. PSYCH: He is alert and oriented. PERTINENT LABS AND X-RAYS: Current WBCs are 2.0, hemoglobin 10.2, hematocrit 30.1, platelet count of 60,000, he has 70% neutrophils and 17% lymphocytes. His ANC is 1.4. Sodium of 138, potassium 3.8, chloride 108, CO2 is 20, BUN is 16, creatinine 1.01, calcium is 7.8, bilirubin 0.7, AST is 24, ALT is 16, alkaline phosphatase is 61, serum total protein 5.6, albumin 3.5, and globulin 2.1. His urine is Strep pneumoniae antigen positive. ASSESSMENT: 1. Respiratory syncytial virus pneumonia. 2. Multiple myeloma. DISCUSSION: The patient's Revlimid will be held during this hospitalization. His neutrophils are adequate at ANC of 1.4. He can resume his treatment once he has recovered from his acute illness. Dr. Mcknight is managing his hypoxia. We have no further inpatient recommendations. Thank you for the consult. Job ID: [id number]
[2019-03-31] MEDS: guaiFENesin ER 600 MG TAB PO SCH (21:39)
[2019-03-31] MEDS: Cefdinir 300 MG CAP PO SCH (21:39)
--- NOTE | 2019-04-01 01:09 | CON ---
DATE OF CONSULTATION: 03/31/2019 SERVICE: Pulmonary Medicine. REASON FOR CONSULTATION: IMCU patient. HISTORY OF PRESENT ILLNESS: The patient is a 73-year-old male with past medical history significant for cancer requiring chemotherapy. He presented to the hospital with a 3-to 4-day history of increasing cough, shortness of breath, and fevers. He is bringing up sputum. This was mostly white, but sometimes a pale yellow character to it. Eventually, his dyspnea on exertion and wheezing got to the point where he could make it at home without assistance and was brought to the emergency department. There he has been given nebulized medications, steroids, and antibiotics. He has been requiring BiPAP on and off. Since he has been in the hospital, he indicates that he is moving in the right direction. PAST MEDICAL HISTORY: 1. Type 2 diabetes mellitus. 2. Restrictive lung disease. 3. Multiple myeloma. PAST SURGICAL HISTORY: 1. Back surgery x2. 2. Prostate surgery. FAMILY HISTORY: Noncontributory. SOCIAL HISTORY: He has a remote history of tobacco use. Prior to quitting, he had over 50 pack-year history of smoking. Denies any alcohol or illicit drugs. He has no exposure to chemicals, dust, asbestos, or tuberculosis. ALLERGIES: NO KNOWN DRUG ALLERGIES. MEDICATIONS: List of his inpatient medications was reviewed. Multiple updates were made. REVIEW OF SYSTEMS: General, head, ears, eyes, nose, and throat, cardiovascular, respiratory, GI, , musculoskeletal, neurologic, and skin are negative except as mentioned in the HPI. PHYSICAL EXAMINATION: VITAL SIGNS: Afebrile with a T-max of 100.8. Pulse 93, blood pressure 107/66, respirations 24, saturation 98%, currently on room air. GENERAL: The patient is awake and alert, in no apparent distress. LUNGS: Extensive rhonchi and wheezing are present. There is a prolonged expiratory phase. No crackles. HEART: Normal rate, regular. ABDOMEN: Soft, nontender, nondistended. Bowel sounds are positive. MUSCULOSKELETAL: No cyanosis or clubbing. There is no pitting in the bilateral lower extremities. NEUROLOGIC: Grossly nonfocal. LABORATORY DATA: WBC 2.0, hemoglobin 10.2, platelets 60,000. PH 7.34, pCO2 29 , PO2 128, while wearing BiPAP. Basic metabolic profile is unremarkable. Liver function studies are unremarkable. CRP 19.9, procalcitonin 1.79. Hemoglobin A1c 5.1, BNP and troponin are unremarkable. Lactate is negative. Urinalysis is positive for minimal blood. Urine strep antigen is positive. Legionella is unremarkable. Respiratory virus panel is positive for respiratory syncytial virus. IMAGING: Chest x-ray demonstrates extensive interstitial markings are present throughout bilateral lung brown. Lung volume seems to be reduced in size. There are significant amounts of air in the transverse colon. Right pleural parenchymal density is present. Abdominal x-ray demonstrates gaseous distention of the colon. ASSESSMENT: 1. Acute hypoxic respiratory failure, improving. 2. Acute bronchitis secondary to respiratory syncytial virus. 3. Abnormal strep antigen in the urine. 4. Pancytopenia. 5. Multiple myeloma, requiring immunocompromising chemotherapy. DISCUSSION AND PLAN: We will discontinue vancomycin and cefepime. We will just put him on p.o. Omnicef, which should be more than adequate to cover possible strep species. My suspicion is that the urine strep is true, true and unrelated. The respiratory syncytial virus is our likely culprit here. I will give him a brief course of steroids, and schedule nebulized medications as he is having an acute bronchitis attack. We will continue p.r.n. BiPAP. He can be transitioned to the floor once he no longer requires the BiPAP. I will schedule some simethicone to see if that can help with his distention. He has a very good appetite and indicates he is passing gas. As such, I do not think there is anything going on with the belly, which is nice to see. I will continue to follow while he remains in this location. 70 minutes have been devoted to this patient in various activities. I personally reviewed all imaging studies and laboratory data noted within this document. For fifty percent of this time, I was interacting with the patient at the bedside or coordinating care with the care team. For the remainder of the time I was immediately available to the patient in the hospital unit. Job ID: [id number] MTDD
[2019-04-01 06:05] LABS: Phosphorus 2.7 mg/dL (2.3-4.7)
[2019-04-01 06:08] LABS: Anion Gap 12 mmol/L (10-20); BUN (Urea Nitrogen) 21 mg/dL (8.4-25.7); Calc. Creatinine Clearance 72 mL/min (70-130); Carbon Dioxide 20 mmol/L (23-31); Chloride 112 mmol/L (98-107); Estimated GFR-MDRD Greater than 90; Glucose 146 mg/dL (83-110); Magnesium 2.4 mg/dL (1.6-2.6); Potassium 4.1 mmol/L (3.5-5.1); Sodium 140 mmol/L (136-145)
[2019-04-01 06:14] LABS: #Lymphocytes 0.3 thou/uL (1.20-3.40); #Monocytes 0.2 thou/uL (0.11-0.59); #Neutrophils 1.8 thou/uL (1.40-6.50); %Eosinophils 0.4 % (0.0-10.0); %Lymphocytes 13.9 % (21.0-51.0); %Monocytes 9.4 % (0.0-10.0); %Neutrophils 76.4 % (42.0-75.0); Hemoglobin 9.8 g/dL (14.0-18.0); Mean Corpuscular HGB CONC 33.9 g/dL (32.0-36.0); Mean Corpuscular Hemoglobin 33.1 pg (27.0-31.0); Mean Corpuscular Volume 97.8 fL (78.0-98.0); Mean Platelet Volume 8.3 fL (7.4-10.4); Platelet Count 68 thou/uL (130-400); RBC Distribution Width 14.8 % (11.5-14.5); Red Blood Cell (RBC) Count 2.97 mill/uL (4.70-6.10); White Blood Cell (WBC) Count 2.4 thou/uL (4.8-10.8)
--- NOTE | 2019-04-01 07:38 | PDOC.FM ---
- Subjective Subjective: No acute events overnight. Required BiPAP ovenright. Continues to have course breath sounds throughout. Subjectively, reports improvement compared to yesterday and slight improvement in respiratory status. - Objective Vital Signs & Weight: Vital Signs (12 hours) Temp Pulse Resp Pulse Ox 04/01/19 07:16 75 24 H 100 04/01/19 07:10 98.4 F 04/01/19 03:47 98.0 F 04/01/19 00:00 98.7 F 100 03/31/19 19:54 98 03/31/19 19:47 99.7 F H Weight Weight 63.82 kg Most Recent Monitor Data Heart Rate from ECG 64 NIBP 144/69 NIBP BP-Mean 94 Respiration from ECG 25 SpO2 100 I&O: 03/31/19 04/01/19 04/02/19 06:59 06:59 06:59 Intake Total 820 2570 0 Output Total 200 1300 Balance 620 1270 0 Result Diagrams: 04/01/19 05:34 04/01/19 05:34 Phys Exam - Physical Examination Constitutional: NAD HEENT: PERRLA, moist MMs, sclera anicteric Neck: no JVD course breath sounds throughout with scattered rhonchi Cardiovascular: RRR, no significant murmur, no rub Gastrointestinal: soft, non-tender, no distention, positive bowel sounds Musculoskeletal: no edema, pulses present Neurological: non-focal, moves all 4 limbs Psychiatric: normal affect Skin: no rash Dx/Plan (1) Acute respiratory failure with hypoxia Code(s): J96.01 - ACUTE RESPIRATORY FAILURE WITH HYPOXIA Status: Acute (2) Sepsis due to pneumonia Code(s): J18.9 - PNEUMONIA, UNSPECIFIED ORGANISM; A41.9 - SEPSIS, UNSPECIFIED ORGANISM Status: Acute (3) DMII (diabetes mellitus, type 2) Status: Chronic Qualifiers: Diabetes mellitus prison insulin use: without prison use (4) Multiple myeloma Code(s): C90.00 - MULTIPLE MYELOMA NOT HAVING ACHIEVED REMISSION Status: Chronic Qualifiers: Multiple myeloma remission status: not in remission Qualified Code(s): C90.00 - Multiple myeloma not having achieved remission (5) Pneumonia Code(s): J18.9 - PNEUMONIA, UNSPECIFIED ORGANISM Status: Acute - Plan Plan: Acute hypoxic respiratory failure 2/2 sepsis 2/2 Strep. pneumoniae -cont po omnicef - galileoley viral pna, but will cover for S pneumo Neutropenic fever -seen by onc. Will hold chemo regime, no further recommendations - cont current care Pancytopenia -Will monitor Multiple myeloma -seen by onc, will hold chemo and cont OP DM2 -Continue home meds - ACHS and SSI HTN -Continue home meds Dispo: Stable, will cont prn bipap and omnicef po for s pneumo coverage. Pulm toilet. Transfer to medical once pt does not require bipap. Addendum - Attending - Attending Attestation Date/Time: 04/01/19 5027 I personally evaluated the patient and discussed the management with Dr. Farfan. I agree with the History, Examination, Assessment and Plan documented above with any addition or exceptions noted below. The patient required bipap overnight. Will keep in imcu until he isn't requiring this. Continue antibiotics.
[2019-04-01] MEDS: guaiFENesin ER 600 MG TAB PO SCH ×2 (08:09→20:00)
[2019-04-01] MEDS: Cefdinir 300 MG CAP PO SCH ×2 (08:10→20:00)
[2019-04-01] MEDS: predniSONE 20 MG TAB PO SCH (08:10)
[2019-04-01] MEDS: Simethicone Chewable 80 MG TAB PO SCH ×3 (08:11→20:00)
[2019-04-01] MEDS: Enoxaparin Sodium 40 MG/0.4 ML SYRINGE SC SCH (08:12)
[2019-04-01] MEDS: Polyethylene Glycol 3350 17 GM Packet PO SCH (08:17)
[2019-04-01] MEDS: Famotidine/PF 20 mg/2ml Vial SLOW IVP SCH ×2 (08:17→20:00)
[2019-04-01] MEDS: HumaLOG 300 UNITS/3 ML VIAL SC PRN ×2 (12:47→18:25)
--- NOTE | 2019-04-01 15:48 | PRG ---
DATE OF SERVICE: 04/01/2019 SERVICE: Pulmonary Medicine. INTERVAL HISTORY: The patient is doing much better from a respiratory standpoint. He denies any current chest discomfort, nausea, or vomiting. His breathing is much improved and he attributes that to his nebulized medications. Otherwise, there has been no interval change to his condition. He is coughing up more yellow phlegm. PHYSICAL EXAMINATION: VITAL SIGNS: Afebrile, pulse 75, blood pressure 140/65, respirations 26, saturation 100% on room air. GENERAL: The patient is awake and alert, in no apparent distress. LUNGS: Extensive wheezing is present. There is a prolonged expiratory phase. Rhonchi are also present, but much less dramatic today. HEART: Normal rate and regular. ABDOMEN: Soft, nontender, and nondistended. Bowel sounds are positive. MUSCULOSKELETAL: No cyanosis or clubbing. There is no pitting in the bilateral lower extremities. NEUROLOGIC: Grossly nonfocal. LABORATORY DATA: WBC 2.4, hemoglobin 9.8, platelets 68,000. Basic metabolic profile is essentially unremarkable with a normal magnesium and phosphorus. ASSESSMENT: 1. Acute hypoxic respiratory failure, resolved. 2. Acute bronchitis secondary to respiratory syncytial virus. 3. Abnormal strep antigen in the urine. 4. Pancytopenia. 5. Multiple myeloma. DISCUSSION AND PLAN: We will continue antibiotics, nebulized medications, and steroid therapy. BiPAP will be interrupted. If he goes all night without it, he can be considered for transition to the floor. We will start our mobilization efforts. Job ID: [id number]
--- NOTE | 2019-04-02 06:56 | PDOC.FM ---
- Subjective Subjective: Pt reports coughing overnight w/o relief. Required BiPAP briefly twice last night for some dyspnea. Otherwise stable from days prior. - Objective Vital Signs & Weight: Vital Signs (12 hours) Temp Pulse Resp Pulse Ox 04/02/19 06:55 99 04/02/19 06:53 81 29 H 99 04/02/19 03:55 98.4 F 04/02/19 03:17 72 28 H 100 04/01/19 23:37 98.6 F 04/01/19 19:32 100 04/01/19 19:18 99.4 F Weight Weight 63.957 kg Most Recent Monitor Data Heart Rate from ECG 74 NIBP 141/91 NIBP BP-Mean 107 Respiration from ECG 23 SpO2 100 I&O: 03/31/19 04/01/19 04/02/19 06:59 06:59 06:59 Intake Total 820 2570 700 Output Total 200 1300 626 Balance 620 1270 74 Result Diagrams: 04/01/19 05:34 04/01/19 05:34 Phys Exam - Physical Examination Constitutional: NAD HEENT: PERRLA, moist MMs, sclera anicteric Neck: no JVD Respiratory: wheezing present scattered rales and wheezes Cardiovascular: RRR, no significant murmur, no rub Gastrointestinal: soft, non-tender, no distention, positive bowel sounds Musculoskeletal: no edema, pulses present Neurological: non-focal, moves all 4 limbs Psychiatric: normal affect Skin: no rash Dx/Plan (1) Acute respiratory failure with hypoxia Code(s): J96.01 - ACUTE RESPIRATORY FAILURE WITH HYPOXIA Status: Acute (2) Sepsis due to pneumonia Code(s): J18.9 - PNEUMONIA, UNSPECIFIED ORGANISM; A41.9 - SEPSIS, UNSPECIFIED ORGANISM Status: Acute (3) DMII (diabetes mellitus, type 2) Status: Chronic Qualifiers: Diabetes mellitus penitentiary insulin use: without meterman use (4) Multiple myeloma Code(s): C90.00 - MULTIPLE MYELOMA NOT HAVING ACHIEVED REMISSION Status: Chronic Qualifiers: Multiple myeloma remission status: not in remission Qualified Code(s): C90.00 - Multiple myeloma not having achieved remission (5) Pneumonia Code(s): J18.9 - PNEUMONIA, UNSPECIFIED ORGANISM Status: Acute - Plan Plan: Acute hypoxic respiratory failure 2/2 sepsis RSV brocnhitis vs S . pneumoniae -cont po omnicef - zachary viral pna, but will cover for S pneumo - PRN cough medications - pt still requiring intermittent BiPAP, possible transfer to medical later today if he does well w/o BiPAP Neutropenic fever -seen by onc. Will hold chemo regime, no further recommendations - cont current care Pancytopenia -Will monitor Multiple myeloma -seen by onc, will hold chemo and cont OP DM2 -Continue home meds - ACHS and SSI HTN -Continue home meds Dispo: Stable, will cont prn bipap and omnicef po for s pneumo coverage. Pulm toilet. Cough suppression prn for symptoms control. Encourage ambulation. Addendum - Attending - Attending Attestation Date/Time: 04/02/19 0098 I personally evaluated the patient and discussed the management with Dr. Farfan. I agree with the History, Examination, Assessment and Plan documented above with any addition or exceptions noted below. The nurse reports to me that patient asked for bipap twice last night however he was given a neb treatment instead and this helped. He notes improvement. Continue current mgmt.
[2019-04-02] MEDS ORDERED: HYDROcodone/Chlorphen Polis 5 ML UDCUP PO PRN (07:23)
[2019-04-02] MEDS ORDERED: Benzonatate 100 MG CAP PO PRN (07:23)
[2019-04-02] MEDS: predniSONE 20 MG TAB PO SCH (09:03)
[2019-04-02] MEDS: Cefdinir 300 MG CAP PO SCH ×2 (09:03→20:38)
[2019-04-02] MEDS: Enoxaparin Sodium 40 MG/0.4 ML SYRINGE SC SCH (09:04)
[2019-04-02] MEDS: Famotidine/PF 20 mg/2ml Vial SLOW IVP SCH ×2 (09:04→20:38)
[2019-04-02] MEDS: guaiFENesin ER 600 MG TAB PO SCH ×2 (09:04→20:38)
[2019-04-02] MEDS: Polyethylene Glycol 3350 17 GM Packet PO SCH (09:04)
--- NOTE | 2019-04-02 17:19 | PRG ---
DATE OF SERVICE: 04/02/2019 SERVICE: Pulmonary medicine. INTERVAL HISTORY: The patient is doing great from respiratory standpoint. Indicates that his breathing is much better. He does not have any significant cough. He is not bringing up any sputum at this point. Otherwise, there has been no known change to his condition. PHYSICAL EXAMINATION: VITAL SIGNS: Afebrile, pulse rate 88, blood pressure 155/81, respirations are 29, and saturation 100% on room air. GENERAL: The patient is awake and alert, in no apparent distress. LUNGS: Very poor and decreased air entry. There is a prolonged expiratory phase with polyphonic wheezing today. I do not appreciate any crackles today. HEART: Normal rate, regular. ABDOMEN: Soft, nontender, and nondistended. Bowel sounds are positive. MUSCULOSKELETAL: No cyanosis or clubbing. No pitting in the bilateral lower extremities. NEUROLOGIC: Grossly nonfocal. LABORATORY DATA: Blood sugars ranged from 104 to 238. ASSESSMENT: 1. Acute hypoxic respiratory failure, resolved. 2. Acute bronchitis secondary to respiratory syncytial virus. 3. Abnormal strep antigen in the urine. 4. Pancytopenia. 5. Multiple myeloma. DISCUSSION AND PLAN: The patient is stable for transition out of the ICU to the medical unit. Pulmonary/Critical Care will continue to follow along for the time being, but if he is doing well until tomorrow, he can be considered for transition home. He will require a 5-day course of steroids and antibiotics directed at lung related issues. Job ID: [id number]
--- NOTE | 2019-04-03 07:46 | PDOC.FM ---
- Subjective Subjective: Pt states he has been up walking around. He reports his pain is being managed. His abdominal distension is better. He does report trouble sleeping but has not tried anything for this. - Objective MAR Reviewed: Yes Vital Signs & Weight: Vital Signs (12 hours) Temp Pulse Resp BP Pulse Ox 04/03/19 04:12 97.7 F 61 20 154/85 H 92 L 04/03/19 02:00 78 24 H 93 L 04/02/19 23:59 97.8 F 78 20 153/74 H 93 L 04/02/19 22:54 96 04/02/19 22:38 74 20 94 L 04/02/19 20:00 100 Weight Weight 65 kg Most Recent Monitor Data Heart Rate from ECG 87 NIBP 137/72 NIBP BP-Mean 93 Respiration from ECG 26 SpO2 100 I&O: 04/02/19 04/03/19 04/04/19 06:59 06:59 06:59 Intake Total 700 810 Output Total 626 0 Balance 74 810 Result Diagrams: 04/01/19 05:34 04/01/19 05:34 Phys Exam - Physical Examination Constitutional: NAD HEENT: moist MMs Neck: no JVD Diffuse wheezing, but improved air movement Cardiovascular: RRR, no significant murmur Gastrointestinal: soft, non-tender, positive bowel sounds Some distention, but improved, no pain Musculoskeletal: no edema, pulses present Neurological: moves all 4 limbs Psychiatric: A&O x 3 Skin: cap refill <2 seconds Dx/Plan (1) Acute respiratory failure with hypoxia Code(s): J96.01 - ACUTE RESPIRATORY FAILURE WITH HYPOXIA Status: Acute (2) Sepsis due to pneumonia Code(s): J18.9 - PNEUMONIA, UNSPECIFIED ORGANISM; A41.9 - SEPSIS, UNSPECIFIED ORGANISM Status: Acute (3) DMII (diabetes mellitus, type 2) Status: Chronic Qualifiers: Diabetes mellitus butter fat tester insulin use: without group home use (4) Multiple myeloma Code(s): C90.00 - MULTIPLE MYELOMA NOT HAVING ACHIEVED REMISSION Status: Chronic Qualifiers: Multiple myeloma remission status: not in remission Qualified Code(s): C90.00 - Multiple myeloma not having achieved remission (5) Pneumonia Code(s): J18.9 - PNEUMONIA, UNSPECIFIED ORGANISM Status: Acute - Plan Plan: This is a 73 yo male with a pmh of multiple myeloma, restrictive lung disease, DM2, HTN Acute hypoxic respiratory failure 2/2 sepsis 2/2 Strep. pneumoniae and RSV -Respiratory status improving -Transitioned to oral omnicef -Urine Strep pneumo antigen positive -Procal elevated suggestive of PNA -Steroids for lung inflammation -Consider dc today pending clinical picture Neutropenic fever -Seen by onc, holding chemo, no further recommendatiosn Pancytopenia -Likely 2/2 chemotherapy -Will monitor, no need for transfusions at this time Multiple myeloma -Consult Dr. Morejon, appreciate recommendations -Continue pain regimen DM2 -Continue home meds, will likely be elevated due to steroids HTN -Continue home meds Addendum - Attending - Attending Attestation Date/Time: 04/03/19 5332 I personally evaluated the patient and discussed the management with Dr. Corrales. I agree with the History, Examination, Assessment and Plan documented above with any addition or exceptions noted below. Improved from prior and says he has no cp/sob/n/v/f/c. Lungs with crackles and exp wheezes, good air movement, no accessory use. continue steorids, antibiotics. Follow up in our clinic. Discussed with family extensively.
[2019-04-03] MEDS: guaiFENesin ER 600 MG TAB PO SCH (08:21)
[2019-04-03] MEDS: Cefdinir 300 MG CAP PO SCH (08:21)
[2019-04-03] MEDS: predniSONE 20 MG TAB PO SCH (08:21)
[2019-04-03] MEDS: Polyethylene Glycol 3350 17 GM Packet PO SCH (08:22)
[2019-04-03] MEDS: Enoxaparin Sodium 40 MG/0.4 ML SYRINGE SC SCH (08:23)
[2019-04-03] MEDS: Famotidine/PF 20 mg/2ml Vial SLOW IVP SCH (08:25)
[2019-04-03 08:26] VITALS: TEMP 98
--- NOTE | 2019-04-03 10:12 | PRG ---
DATE OF SERVICE: 04/03/2019 OBJECTIVE: VITAL SIGNS: This morning, his temperature is 98, pulse 88, respirations 14, saturations 98% on room air, blood pressure 140/77. LUNGS: No shortness of breath, cough, bilateral wheezing, crackles. CARDIAC: Normal S1 and S2. No gallops. ABDOMEN: No masses. ASSESSMENT AND PLAN: 1. History of multiple myeloma on chemotherapy, followed by Oncology. 2. Bronchitis. Increased markings, doubt_ pneumonia. 3. Pulmonary zamorano stable enough to be discharged home. Follow up with the primary care physician. Job ID: [id number] MTDD
[2019-04-03 13:42] VITALS: BP 151/79
== END 2019-04-03 14:33 | disposition home or self-care (01) | DRG 871 ==
LOC: ERS 16:26 → IMCU/EMU 21:56 → T4-A 04-02 22:23
PROVIDERS: ADMIT Family Medicine; ATTEND Family Medicine
PROC: 5A09457 Assistance with Respiratory Ventilation, 24-96 Consecutive Hours, Continuous Positive Airway Pressure (ICD-10-PCS; principal; 2019-03-31)
DX: A40.3 Sepsis due to Streptococcus pneumoniae (principal); J96.01 Acute respiratory failure with hypoxia; J18.9 Pneumonia, unspecified organism; G93.41 Metabolic encephalopathy; D61.810 Antineoplastic chemotherapy induced pancytopenia; C90.00 Multiple myeloma not having achieved remission; E11.9 Type 2 diabetes mellitus without complications; T45.1X5A Adverse effect of antineoplastic and immunosuppressive drugs, initial encounter; J20.5 Acute bronchitis due to respiratory syncytial virus; I10 Essential (primary) hypertension
CPT/HCPCS: 36415; 36416; 71046; 74018; 80048; 80053; 81003; 81015; 82550; 82805; 83036; 83605; 83690; 83735; 83880; 84100; 84145; 84484; 85025; 86140; 87040; 87086; 87449; 87633; 87798; 87804; 87899; 93005; 94640; 94660; 96365; 96367; 96375; 96376; J0692; J1100; J1650; J2060; J3370; J3475; J3490; J7512; J7611; J7620; S0028

== ENCOUNTER 2019-05-15 12:16 | Day surgery (SDC) | payer OTHER ==
[~2019-05-15 12:16] MED LIST changes: +Zoledronic Acid 4 MG in Sodium Chloride 0.9% 100 ML IVPB SCH; -valACYclovir 500 MG TAB PO SCH
[2019-05-15] MEDS ORDERED: Sodium Chloride 0.9% 20 ML ONE (12:24)
[2019-05-15 14:43] VITALS: BP 125/60; TEMP 98
== END 2019-05-15 14:46 | disposition home or self-care (01) ==
LOC: ONC/OP 12:16
PROVIDERS: ATTEND Internal Medicine Hematology & Oncology
DX: C90.00 Multiple myeloma not having achieved remission (principal); C79.51 Secondary malignant neoplasm of bone
CPT/HCPCS: 36415; 80053; 82248; 83615; 83883; 84100; 84550; 96374; J3489; J3490

== ENCOUNTER 2019-08-09 11:29 | Day surgery (SDC) | payer OTHER ==
[2019-08-09] MEDS ORDERED: Sodium Chloride 0.9% 20 ML ONE (11:45)
[2019-08-09 13:14] VITALS: BP 132/67; TEMP 97.7
[2019-08-09] MEDS ORDERED: FLU VACC TS2019-20(65YR UP)/PF 180 MCG/0.5 ML SYRINGE IM ONE (13:15)
== END 2019-08-09 13:37 | disposition home or self-care (01) ==
LOC: ONC/OP 11:29
PROVIDERS: ATTEND Internal Medicine Hematology & Oncology
DX: C90.00 Multiple myeloma not having achieved remission (principal); C79.51 Secondary malignant neoplasm of bone
CPT/HCPCS: 96365; J3489; J3490

== ENCOUNTER 2019-10-10 16:29 | Inpatient (IN) | payer OTHER ==
[~2019-10-10 16:29] MED LIST changes: +Iopamidol-370 76% 500 ML 1 ML ONE; -Zoledronic Acid 4 MG in Sodium Chloride 0.9% 100 ML IVPB SCH
[2019-10-10] MEDS ORDERED: Acetaminophen 500 MG TAB ONE (16:49)
[2019-10-10 17:00] LABS: #Lymphocytes 0.5 thou/uL (1.20-3.40); #Monocytes 0.2 thou/uL (0.11-0.59); #Neutrophils 0.9 thou/uL (1.40-6.50); %Eosinophils 0.2 % (0.0-10.0); %Lymphocytes 32.5 % (21.0-51.0); %Monocytes 10.1 % (0.0-10.0); %Neutrophils 57.2 % (42.0-75.0); Mean Corpuscular HGB CONC 33.8 g/dL (32.0-36.0); Mean Corpuscular Hemoglobin 34.6 pg (27.0-31.0); Mean Platelet Volume 11.2 fL (7.4-10.4); Platelet Count 31 thou/uL (130-400); RBC Distribution Width 12.9 % (11.5-14.5); Red Blood Cell (RBC) Count 2.89 mill/uL (4.70-6.10); White Blood Cell (WBC) Count 1.5 thou/uL (4.8-10.8)
[2019-10-10] MEDS ORDERED: Vancomycin 1 GM/200 ML BAG ONE ×2 (17:07→17:28)
[2019-10-10] MEDS ORDERED: Cefepime 2 GM VIAL ONE (17:07)
[2019-10-10 17:20] LABS: ALT (SGPT) 26 U/L (8-55); AST (SGOT) 18 U/L (5-34); Albumin 3.7 g/dL (3.4-4.8); Alkaline Phosphatase 139 U/L (40-110); Anion Gap 18 mmol/L (10-20); BUN (Urea Nitrogen) 13 mg/dL (8.4-25.7); Calc. Creatinine Clearance 0 mL/min (70-130); Carbon Dioxide 20 mmol/L (23-31); Chloride 98 mmol/L (98-107); Estimated GFR-MDRD 63; Globulin 3.2 g/dL (2.4-3.5); Glucose 196 mg/dL (83-110); Potassium 3.7 mmol/L (3.5-5.1); Protein, Total 6.9 g/dL (5.8-8.1); Sodium 132 mmol/L (136-145)
[2019-10-10 17:22] LABS: Band 20 % (5-11); Dohle Bodies SLIGHT; Lymphocytes 39 % (21-51); MDiff Complete? YES; Macrocytosis SLIGHT = 6-15 cells (100X) (0-5/hpf); Monocytes 2 % (0-10); Neutrophil 39 % (42-75); Ovalocytes SLIGHT = 2-5 cells (100X) (0-1/hpf); Platelet Morphology Comment Appears Decreased; Polychromasia SLIGHT = 2-3 cells (100X) (0-2/hpf); Reflex for Review?? YES; Toxic Granulation SLIGHT
[2019-10-10] MEDS ORDERED: Clindamycin/D5W 600 mg/50 ml Premix Bag ONE (17:28)
[2019-10-10 18:59] LABS: Bacteria/HPF None Seen HPF (None Seen); Bilirubin Negative (Negative); Blood, Urine Negative (Negative); Clarity Clear (Clear); Glucose, Urine (Dipstick) Normal (Negative); Leukocyte Negative Leu/uL (Negative); Nitrite Negative (Negative); Protein, Urine (Dipstick) 70 mg/dL (Neg-Trace); RBC/HPF 0-3 HPF (0-3); Squamous Epithelial 0-3 HPF (0-3); WBC/HPF 0-3 HPF (0-3)
[2019-10-10] MEDS ORDERED: Morphine 4 MG/ML VIAL ONE (19:33)
--- NOTE | 2019-10-10 19:34 | CT ---
CT ABDOMEN AND PELVIS WITH CONTRAST: 10/10/19 INDICATIONS: Left buttock pain. Fever. FINDINGS: Images through the lung bases show mild right posterior basilar infiltrate or atelectasis. Liver, spleen and pancreas unremarkable. Adrenal glands and kidneys unremarkable. Small bowel loops normal caliber with nonspecific distention . No evidence of dilatation. Colon is unremarkable. Aorta normal caliber. No free fluid. No mass. Urinary bladder unremarkable. Images through the pelvis reveal inflammatory change in the left perirectal region. There is low atte nuation extending to the left buttock subcutaneous region. Findings are consistent with perirectal ab scess. There is a low density focus with a gas pocket in the perirectal region with AP dimension arjun uring in the 3.5 to 4 cm range. Osseous windows show deformity of the pubic rami consistent with old healed fractures. The bones are very osteopenic and there are numerous compression deformities of the lumbar spine. Is there history of multiple myeloma? IMPRESSION: 1. Evidence of perirectal abscess on the left with inflammatory change extending to the subcutan eous tissues of the left buttock. 2. Diffuse osteopenia with numerous compression fractures involving the visualized lumbar verteb davidson. Correlate for multiple myeloma or other infiltrative osseous process. POS: AGW
[2019-10-10 19:49] LABS: Lactic Acid 1.1 mmol/L (0.5-2.2)
[2019-10-10] MEDS ORDERED: Morphine 4 MG/ML VIAL SLOW IVP PRN (20:13)
[2019-10-10] MEDS ORDERED: Morphine 2 MG/ML SYRINGE SLOW IVP PRN (20:13)
[2019-10-10] MEDS ORDERED: Dextrose 5% in Water 1,000 ML IV PRN (20:15)
[2019-10-10] MEDS ORDERED: Dextrose 50% Abboject 50 ML SYRINGE SLOW IVP PRN (20:15)
[2019-10-10] MEDS ORDERED: Insulin Regular 300 UNITS/3 ML VIAL SC PRN (20:15)
[2019-10-10] MEDS ORDERED: Ondansetron HCl/PF 8 MG in Sodium Chloride 0.9% 50 ML IVPB SCH (21:00)
[2019-10-10] MEDS: Sodium Chloride 0.9% 1,000 ML IV SCH (22:38)
[2019-10-10] MEDS: Piperacillin/Tazobactam 3.375 GM in Sodium Chloride 0.9% 100 ML IVPB SCH (22:39)
--- NOTE | 2019-10-10 22:46 | PDOC.FPRHP ---
- History of Present Illness Chief Complaint: Bump on left bottocks, fever History of Present Illness: 74 yo M with T2DM and multiple myeloma presents for a bump that presented for a on painful bump left buttock 9 days ago and has been worsening. He was sent from clinic today to the ED. He reports fever for the past 2 days. In the ED, he was tachypneic in the 20s, pulse in the 90s, Febrile to 103. Pancytopenic on CBC. CT showed john-rectal abscess, 3.5-4 cm. Given Vanc, cefepime, clindamycin; tylenol, morphine, 30 ml/kg NS bolus. - Allergies/Adverse Reactions Allergies Allergy/AdvReac Type Severity Reaction Status Date / Time No Known Allergies Allergy Verified 10/10/19 21:38 - Home Medications Medication Instructions Recorded Confirmed Type metFORMIN [Glucophage] 500 mg PO BID 04/14/18 10/10/19 History HYDROcodone Bit/APAP 10/325 [[place]] 2 tab PO Q6HR PRN 03/30/19 10/10/19 History Lenalidomide [Revlimid] 10 mg PO DAILY 03/30/19 10/10/19 History - History PMHx: Multiple myeloma, T2DM well controlled on metformin PSHx: back surgery FHx: none Social: Denies tobacco, alcohol, or drug use - Review of Systems General: reports: fever/chills. denies: weight/appetite/sleep changes Eyes: denies: eye pain, vision changes ENT: denies: nasal congestion, rhinorrhea, other (denies ear pain/auditory changes) Respiratory: denies: cough, congestion, shortness of breath Cardiovascular: denies: chest pain, palpitation, edema Gastrointestinal: denies: nausea, vomiting, diarrhea, constipation, abdominal pain, GI bleeding Genitourinary: denies: dysuria, other (hematuria) Skin: reports: lesions (see hpi). denies: rashes Musculoskeletal: reports: pain (over left gluteal cleft). denies: stiffness, swelling, arthritis/arthralgias Neurological: denies: numbness, weakness - Vital signs BP: [108/58] HR: [81] RR: [28] Tmax: [98.4] Pox: [98]% on [RA] Wt: [79 kg] - Physical Exam Constitutional: NAD, awake, alert and oriented, well developed HEENT: normocephalic and atraumatic, EOMI, conjunctiva clear, no scleral icterus , grossly normal hearing, MMM, other (poor dentition) Neck: supple, trachea midline Heart: RRR, normal S1/S2, no murmurs/rubs/gallops, pulses present, no edema Lungs: CTAB, no respiratory distress, good air movement, no rales/rhonchi, no wheezing, no retractions Abdomen: soft, non-tender, bowel sounds present Musculoskeletal: normal structure, normal tone, ROM grossly normal Neurological: no focal deficit, normal sensation Skin: good turgor, capillary refill <2 seconds, other (induration and mild erythema or left gluteal cleft) Heme/Lymphatic: no unusual bruising or bleeding, no purpura, no petechia Psychiatric: normal mood and affect, good judgment and insight, intact recent and remote memory FMR H&P: Results - Labs Result Diagrams: 10/10/19 16:42 10/10/19 16:42 Lab results: WBC 1.5 thou/uL (4.8-10.8) L 10/10/19 16:42 Hgb 10.0 g/dL (14.0-18.0) L 10/10/19 16:42 Hct 29.6 % (42.0-52.0) L 10/10/19 16:42 MCV 102.0 fL (78.0-98.0) H 10/10/19 16:42 Plt Count 31 thou/uL (130-400) L 10/10/19 16:42 Neutrophils % 57.2 % (42.0-75.0) 10/10/19 16:42 Band Neuts % (Manual) 20 % (5-11) H 10/10/19 16:42 Sodium 132 mmol/L (136-145) L 10/10/19 16:42 Potassium 3.7 mmol/L (3.5-5.1) 10/10/19 16:42 Chloride 98 mmol/L (98-107) 10/10/19 16:42 Carbon Dioxide 20 mmol/L (23-31) L 10/10/19 16:42 BUN 13 mg/dL (8.4-25.7) 10/10/19 16:42 Creatinine 1.14 mg/dL (0.7-1.3) 10/10/19 16:42 Glucose 196 mg/dL (83-110) H 10/10/19 16:42 Lactic Acid 1.1 mmol/L (0.5-2.2) 10/10/19 19:26 Calcium 9.0 mg/dL (7.8-10.44) 10/10/19 16:42 Total Bilirubin 1.0 mg/dL (0.2-1.2) 10/10/19 16:42 AST 18 U/L (5-34) 10/10/19 16:42 ALT 26 U/L (8-55) 10/10/19 16:42 Alkaline Phosphatase 139 U/L (40-110) H 10/10/19 16:42 Serum Total Protein 6.9 g/dL (5.8-8.1) 10/10/19 16:42 Albumin 3.7 g/dL (3.4-4.8) 10/10/19 16:42 Urine Ketones Trace mg/dL (Negative) A 10/10/19 17:09 Urine Blood Negative (Negative) 10/10/19 17:09 Urine Nitrite Negative (Negative) 10/10/19 17:09 Ur Leukocyte Esterase Negative Kiesha/uL (Negative) 10/10/19 17:09 Urine RBC 0-3 HPF (0-3) 10/10/19 17:09 Urine WBC 0-3 HPF (0-3) 10/10/19 17:09 Ur Squamous Epith Cells 0-3 HPF (0-3) 10/10/19 17:09 Urine Bacteria None Seen HPF (None Seen) 10/10/19 17:09 - Radiology Interpretation CT scan - abdomen Status: image reviewed by me, report reviewed by me (john-rectal abscess, 3.5-4 cm osteopenia, numerous compression fractures of lumbar vertebra) FMR H&P: A/P - Problem List (1) Perirectal abscess Current Visit: Yes Status: Acute Code(s): K61.1 - RECTAL ABSCESS (2) DMII (diabetes mellitus, type 2) Current Visit: No Status: Chronic Qualifiers: Diabetes mellitus intermediate accountant insulin use: without mcfp use (3) Multiple myeloma Current Visit: No Status: Chronic Code(s): C90.00 - MULTIPLE MYELOMA NOT HAVING ACHIEVED REMISSION Qualifiers: Multiple myeloma remission status: not in remission Qualified Code(s): C90.00 - Multiple myeloma not having achieved remission (4) Elevated alkaline phosphatase level Current Visit: Yes Status: Acute Code(s): R74.8 - ABNORMAL LEVELS OF OTHER SERUM ENZYMES (5) Hyponatremia Current Visit: Yes Status: Acute Code(s): E87.1 - HYPO-OSMOLALITY AND HYPONATREMIA (6) Sepsis due to cellulitis Current Visit: Yes Status: Acute Code(s): L03.90 - CELLULITIS, UNSPECIFIED; A41.9 - SEPSIS, UNSPECIFIED ORGANISM (7) Pancytopenia Current Visit: Yes Status: Acute Code(s): D61.818 - OTHER PANCYTOPENIA - Plan Sepsis 2/2 Perirectal Abscess -3.5-[address] -Admitted to surgery, NPO for morning procedure -S/p Vanc, cefepime, clinda, 30 mg/kg bolus in ED -Continue Vanc and zosyn, NS @ 125 -Blood cultures pending Multiple Myeloma -on revlimid -per last consult note Apr 24, pt is on revlimid maintenance 10 mg QD -consider Onc consult tomorrow, pt sees Dr. Morejon Pancytopenic Fever -likely 2/2 to multiple myeloma treatment -S/p Vanc, cefepime, and clindamycin -Continue Vanc and zosyn -Tylenol for fever T2DM -A1C pending -DC metformin 500 mg BID while inpatient to protect kidneys in case of KP from imaging etc -likely resume on discharge -SSI with accuchecks Mild hyponatremia -Na 132, continue to monitor Elevated Alk Phos -follow up outpatient Diet: NPO DVT ppx: SCDs, no pharmaco ppx as thrombocytopenic GI ppx: none PCP: ALEX Larkin Code status: Full Discussed with Dr. Jimenez Addendum - Attending - Attending Attestation Date/Time: 10/10/19 5644 I personally evaluated the patient and discussed the management with Dr. Dunham I agree with the History, Examination, Assessment and Plan documented above with any addition or exceptions noted below. 74 yo HM PMH DM2 and multiple myeloma. presents with 8 day hx of left buttock mass, fever, and chills. On chronic immunsuppressants. consulted by surgery for medical management. Plans to have operative washout of abscess tomorrow. agree with zosyn although would consider increasing to 4.5 g q6hr since he meets criteria for neutropenic fever. We will add vanc for staph coverage. Holding metformin until postoperative. SSI for glucose control. Would also consider oncology consultation given his pancytopenia. It appears he follows with Dr. Morejon. Thank you for allowing us to participate in your patient's care. We will follow with you.
[2019-10-10] MEDS ORDERED: Acetaminophen 325 MG TAB PO PRN (23:58)
[2019-10-11 00:17] LABS: Hemoglobin A1c 5.5 % (4.0-6.0)
--- NOTE | 2019-10-11 02:00 | HP ---
CHIEF COMPLAINT: Left gluteal pain. HISTORY OF PRESENT ILLNESS: This 74-year-old diabetic male with a 9-day history of left gluteal pain. No drainage. Subjective fever. He has been on chemo for multiple myeloma. He has never had a colonoscopy. PAST MEDICAL HISTORY: Multiple myeloma treated by Dr. Morejon, diabetes. He sees the [facility]. PAST SURGICAL HISTORY: He had prostate surgery and back surgery. MEDICATIONS: 1. Prednisone. 2. Metformin. 3. Simethicone. 4. Lenalidomide. 5. Colace. 6. Albuterol. ALLERGIES: NO KNOWN DRUG ALLERGIES. FAMILY HISTORY: Noncontributory. 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 No tobacco or alcohol. PHYSICAL EXAMINATION: VITAL SIGNS: He did have a temperature up to 103, but it is down now. His heart rate is 86, blood pressure is fine. GENERAL: He is awake, alert, Albanian-speaking. HEENT: Otherwise unremarkable. LUNGS: Clear. HEART: Regular rate and rhythm. ABDOMEN: Soft, nondistended, nontender. RECTAL: He has about a 5 cm tender mass left gluteus about 3 cm from the anal verge. LABORATORY DATA: His white count is only 1.5, H and H of 10 and 29, platelet count of 31. His electrolytes show his glucose is 196. Urinalysis is fine. ASSESSMENT: Left gluteal abscess with thrombocytopenia, multiple myeloma. PLAN: The OR is unable to accept him for surgery tonight until after midnight, so we are going to treat him with antibiotics, get platelets thawed out for him. Plan I and D in the morning. Job ID: [id number]
[2019-10-11] MEDS: Piperacillin/Tazobactam 3.375 GM in Sodium Chloride 0.9% 100 ML IVPB SCH ×2 (03:27→09:20)
[2019-10-11] MEDS: Vancomycin HCl 1.25 GM in Sodium Chloride 0.9% 250 ML 250 ML IVPB SCH ×2 (05:28→19:59)
[2019-10-11] MEDS: Sodium Chloride 0.9% 1,000 ML IV SCH ×3 (05:28→22:37)
[2019-10-11] MEDS ORDERED: Vancomycin 1.25 GM in Premix Bag 1 BAG IVPB SCH (06:00)
[2019-10-11] MEDS ORDERED: metFORMIN 500 MG TAB PO SCH (08:00)
--- NOTE | 2019-10-11 08:26 | PDOC.FM ---
- Subjective Subjective: NAEO. Patient reports feeling well. No concerns - Objective MAR Reviewed: Yes Vital Signs & Weight: Vital Signs (12 hours) Temp Pulse Resp BP Pulse Ox 10/11/19 03:35 97.9 F 84 30 H 111/57 L 99 10/10/19 21:32 98.4 F 81 28 H 108/58 L 98 Weight Weight 79.288 kg I&O: 10/10/19 10/11/19 10/12/19 06:59 06:59 06:59 Output Total 450 Balance -450 Result Diagrams: 10/11/19 11:02 10/11/19 08:43 Phys Exam - Physical Examination Constitutional: NAD HEENT: PERRLA, moist MMs Respiratory: no wheezing, clear to auscultation bilateral Cardiovascular: RRR, no significant murmur Gastrointestinal: soft, non-tender Musculoskeletal: no edema Neurological: non-focal, moves all 4 limbs Psychiatric: normal affect, A&O x 3 Deviation from normal: left abscess on buttock, warm, indurated Dx/Plan (1) Elevated alkaline phosphatase level Code(s): R74.8 - ABNORMAL LEVELS OF OTHER SERUM ENZYMES Status: Acute (2) Perirectal abscess Code(s): K61.1 - RECTAL ABSCESS Status: Acute (3) DMII (diabetes mellitus, type 2) Status: Chronic Qualifiers: Diabetes mellitus penitentiary insulin use: without long goods drier use (4) Multiple myeloma Code(s): C90.00 - MULTIPLE MYELOMA NOT HAVING ACHIEVED REMISSION Status: Chronic Qualifiers: Multiple myeloma remission status: not in remission Qualified Code(s): C90.00 - Multiple myeloma not having achieved remission - Plan Plan: Sepsis 2/2 Perirectal Abscess -3.5-[address] -Admitted to surgery, NPO for I&D today -S/p Vanc, cefepime, clinda, 30 mg/kg bolus in ED -Continue Vanc and zosyn, NS @ 125 -Blood cultures pending -Stable, continue supportive care Multiple Myeloma -hold revlimid due to thrombocytopenia -per last consult note Apr 24, pt is on revlimid maintenance 10 mg QD -will reach out to Dr. Morejon today Pancytopenic Fever -likely 2/2 to multiple myeloma treatment -Continue Vanc and zosyn -Tylenol for fever Diffuse osteopenia with multiple compression fx of lumbar vertebra -Likely from MM -Monitor, discuss w/ heme/onc T2DM -A1C 5.5% -Hold metformin in anticipation of possible imaging with contrast -SSI with accuchecks Mild hyponatremia -Na 132, continue to monitor -Pending today Elevated Alk Phos -follow up outpatient Diet: NPO DVT ppx: SCDs, no pharmaco ppx as thrombocytopenic GI ppx: none PCP: ALEX Larkin Code status: Full Addendum - Attending - Attending Attestation Date/Time: 10/11/19 1768 I personally evaluated the patient and discussed the management with Dr. Horvath I agree with the History, Examination, Assessment and Plan documented above with any addition or exceptions noted below. 74 yo M with MM admitted with neutropenic fever 2/2 gluteal abscess. ANC <900. I &D today. Continue Vancomycin and Zosyn at neutropenic fever dose. Hgb 6.4 this AM, will transfuse 1 U PRBC and plts. Will consult Oncology.
[2019-10-11 09:25] LABS: Hemoglobin 6.4 g/dL (14.0-18.0); Mean Corpuscular HGB CONC 33.9 g/dL (32.0-36.0); Mean Corpuscular Hemoglobin 35.2 pg (27.0-31.0); Mean Platelet Volume 10.6 fL (7.4-10.4); Platelet Count 21 thou/uL (130-400); Red Blood Cell (RBC) Count 1.83 mill/uL (4.70-6.10); White Blood Cell (WBC) Count 1.4 thou/uL (4.8-10.8)
[2019-10-11 09:34] LABS: ALT (SGPT) 13 U/L (8-55); AST (SGOT) 9 U/L (5-34); Albumin 2.3 g/dL (3.4-4.8); Alkaline Phosphatase 74 U/L (40-110); Anion Gap 12 mmol/L (10-20); BUN (Urea Nitrogen) 8 mg/dL (8.4-25.7); Bilirubin, Total 0.7 mg/dL (0.2-1.2); Calc. Creatinine Clearance 98 mL/min (70-130); Calcium 6.1 mg/dL (7.8-10.44); Carbon Dioxide 15 mmol/L (23-31); Chloride 113 mmol/L (98-107); Estimated GFR-MDRD Greater than 90; Globulin 1.7 g/dL (2.4-3.5); Glucose 94 mg/dL (83-110); Potassium 2.8 mmol/L (3.5-5.1); Sodium 137 mmol/L (136-145)
[2019-10-11] MEDS ORDERED: Potassium Chloride 40 MEQ in Sodium Chloride 0.9% 250 ML 250 ML IVPB SCH (10:00)
[2019-10-11 10:27] LABS: Band 54 % (5-11); Lymphocytes 20 % (21-51); MDiff Complete? YES; Metamyelocyte 1 % (0-0); Myelocyte 1 % (0-0); Neutrophil 23 % (42-75); Platelet Morphology Comment Appears Decreased; Reactive Lymphocytes 1 % (0-10)
[2019-10-11 10:52] VITALS: BMI 22.4
[2019-10-11 11:13] LABS: SARS-CoV-2 MS2 Positive; SARS-CoV-2 N Gene Negative; SARS-CoV-2 S Gene Negative; SARS-CoV-2 orf1ab Negative
[2019-10-11 11:38] LABS: #Lymphocytes 0.3 thou/uL (1.20-3.40); #Monocytes 0.2 thou/uL (0.11-0.59); #Neutrophils 0.7 thou/uL (1.40-6.50); %Basophils 0.4 % (0.0-1.0); %Eosinophils 0.4 % (0.0-10.0); %Lymphocytes 23.7 % (21.0-51.0); %Monocytes 14.3 % (0.0-10.0); %Neutrophils 61.1 % (42.0-75.0); Mean Corpuscular HGB CONC 35.4 g/dL (32.0-36.0); Mean Corpuscular Hemoglobin 36.5 pg (27.0-31.0); Mean Platelet Volume 10.8 fL (7.4-10.4); Platelet Count 19 thou/uL (130-400); RBC Distribution Width 13.1 % (11.5-14.5); Red Blood Cell (RBC) Count 1.65 mill/uL (4.70-6.10); White Blood Cell (WBC) Count 1.2 thou/uL (4.8-10.8)
[2019-10-11] MEDS ORDERED: Fentanyl 100 MCG/2 ML VIAL ONE (12:38)
[2019-10-11] MEDS ORDERED: HYDROcodone/Acetaminophen 5/325 mg Tablet PO PRN ×2 (14:06)
[2019-10-11] MEDS ORDERED: Promethazine HCl 25 MG/ML VIAL IM PRN (14:21)
[2019-10-11] MEDS ORDERED: Promethazine HCl 25 MG/ML VIAL SLOW IVP PRN (14:21)
[2019-10-11] MEDS ORDERED: Ondansetron HCl/PF 4 MG/2 ML Vial IVP PRN (14:21)
[2019-10-11] MEDS ORDERED: Succinylcholine Chloride 20 MG/ML 10 ml SYRINGE FS ONE (15:29)
[2019-10-11] MEDS ORDERED: PROPOFOL 200 MG/20 ML VIAL ONE (15:29)
[2019-10-11] MEDS ORDERED: Lidocaine 1% PF 5 ML VIAL ONE (15:29)
[2019-10-11] MEDS: Piperacillin/Tazobactam 4.5 GM in Sodium Chloride 0.9% 100 ML IVPB SCH ×2 (16:20→21:07)
[2019-10-11 17:02] LABS: Anion Gap 14 mmol/L (10-20); BUN (Urea Nitrogen) 10 mg/dL (8.4-25.7); Calc. Creatinine Clearance 64 mL/min (70-130); Calcium 7.7 mg/dL (7.8-10.44); Carbon Dioxide 19 mmol/L (23-31); Chloride 109 mmol/L (98-107); Estimated GFR-MDRD 87; Glucose 107 mg/dL (83-110); Potassium 3.8 mmol/L (3.5-5.1); Sodium 138 mmol/L (136-145)
[2019-10-11 17:52] LABS: #Lymphocytes 0.4 thou/uL (1.20-3.40); #Monocytes 0.2 thou/uL (0.11-0.59); #Neutrophils 1.2 thou/uL (1.40-6.50); %Basophils 0.2 % (0.0-1.0); %Eosinophils 0.3 % (0.0-10.0); %Lymphocytes 20.8 % (21.0-51.0); %Monocytes 12.2 % (0.0-10.0); %Neutrophils 66.5 % (42.0-75.0); Hemoglobin 8.3 g/dL (14.0-18.0); Mean Corpuscular HGB CONC 34.8 g/dL (32.0-36.0); Mean Corpuscular Hemoglobin 35.4 pg (27.0-31.0); Mean Platelet Volume 8.6 fL (7.4-10.4); Platelet Count 53 thou/uL (130-400); RBC Distribution Width 13.5 % (11.5-14.5); Red Blood Cell (RBC) Count 2.33 mill/uL (4.70-6.10); White Blood Cell (WBC) Count 1.8 thou/uL (4.8-10.8)
[2019-10-11] MEDS ORDERED: Prevnar 13-Val Conj/PF 0.5 ML SYRINGE IM ONE (21:00)
[2019-10-11] MEDS: metFORMIN 500 MG TAB PO SCH (21:07)
[2019-10-12] MEDS: Piperacillin/Tazobactam 4.5 GM in Sodium Chloride 0.9% 100 ML IVPB SCH ×4 (03:54→20:52)
[2019-10-12] MEDS: Sodium Chloride 0.9% 1,000 ML IV SCH ×3 (04:08→15:02)
[2019-10-12 05:02] LABS: #Lymphocytes 0.5 thou/uL (1.20-3.40); #Monocytes 0.2 thou/uL (0.11-0.59); #Neutrophils 1.2 thou/uL (1.40-6.50); %Basophils 0.5 % (0.0-1.0); %Eosinophils 0.8 % (0.0-10.0); %Lymphocytes 27.5 % (21.0-51.0); %Monocytes 9.5 % (0.0-10.0); %Neutrophils 61.8 % (42.0-75.0); Hemoglobin 7.9 g/dL (14.0-18.0); Mean Corpuscular HGB CONC 34.5 g/dL (32.0-36.0); Mean Corpuscular Hemoglobin 35.3 pg (27.0-31.0); Mean Platelet Volume 9.2 fL (7.4-10.4); Platelet Count 54 thou/uL (130-400); RBC Distribution Width 13.6 % (11.5-14.5); Red Blood Cell (RBC) Count 2.24 mill/uL (4.70-6.10); White Blood Cell (WBC) Count 1.9 thou/uL (4.8-10.8)
[2019-10-12 05:17] LABS: Vancomycin, Trough 16.1 ug/mL
[2019-10-12 05:18] LABS: Anion Gap 11 mmol/L (10-20); BUN (Urea Nitrogen) 8 mg/dL (8.4-25.7); Calc. Creatinine Clearance 67 mL/min (70-130); Calcium 7.4 mg/dL (7.8-10.44); Carbon Dioxide 18 mmol/L (23-31); Chloride 113 mmol/L (98-107); Estimated GFR-MDRD Greater than 90; Glucose 127 mg/dL (83-110); Magnesium 1.9 mg/dL (1.6-2.6); Potassium 3.3 mmol/L (3.5-5.1); Sodium 139 mmol/L (136-145)
[2019-10-12] MEDS: Vancomycin HCl 1.25 GM in Sodium Chloride 0.9% 250 ML 250 ML IVPB SCH ×2 (06:04→18:44)
--- NOTE | 2019-10-12 06:18 | OP ---
DATE OF PROCEDURE: 10/11/2019 PREOPERATIVE DIAGNOSIS: Left perirectal abscess. PROCEDURE PERFORMED: Incision and debridement. INDICATION: A 74-year-old male with a 9-day history of painful swelling by his rectum, developed fever. He has underlying multiple myeloma with pancytopenia. FINDINGS: Very large, probably 5 x 8 x 5 cm perirectal abscess, left side, containing thick purulent fluid. DESCRIPTION OF PROCEDURE: After informed consent was obtained, patient was taken to the operating room, given general endotracheal anesthesia. He was placed in lithotomy position. Perianal region was prepped and draped in usual fashion. An elliptical incision was performed releasing thick purulent brown fluid sent for culture. This was aspirated, then the cavity was irrigated with the pulse cemetery worker, 2 L of saline. Hemostasis achieved with electrocautery, platelet infusion as well as Surgicel. It was packed open with Betadine gauze. Sterile bandage applied. The patient tolerated the procedure well, transferred to Recovery in good condition. Sponge and needle count verified, correct x2. Job ID: [id number]
--- NOTE | 2019-10-12 07:27 | PDOC.FM ---
- Subjective Subjective: Had I&D yesterday, pt denies pain, fevers, chills. Feels better. No weakness or dizziness, passing gas, eating well. - Objective MAR Reviewed: Yes Vital Signs & Weight: Vital Signs (12 hours) Temp Pulse Resp BP Pulse Ox 10/12/19 07:10 97.9 F 68 20 121/70 97 10/12/19 04:00 98.1 F 79 18 126/71 100 10/11/19 20:00 98.6 F 76 18 115/62 95 Weight Admit Weight 79.288 kg Weight 61.204 kg I&O: 10/11/19 10/12/19 10/13/19 06:59 06:59 06:59 Intake Total 240 Output Total 450 Balance -450 240 Result Diagrams: 10/12/19 04:51 10/12/19 04:51 Phys Exam - Physical Examination Constitutional: NAD HEENT: PERRLA EOMI Neck: full ROM Respiratory: no wheezing, clear to auscultation bilateral Cardiovascular: RRR, no significant murmur Gastrointestinal: soft, non-tender unable to assess incision site since bandaged Neurological: non-focal, moves all 4 limbs Psychiatric: normal affect, A&O x 3 Dx/Plan (1) Elevated alkaline phosphatase level Code(s): R74.8 - ABNORMAL LEVELS OF OTHER SERUM ENZYMES Status: Acute (2) Perirectal abscess Code(s): K61.1 - RECTAL ABSCESS Status: Acute (3) DMII (diabetes mellitus, type 2) Status: Chronic Qualifiers: Diabetes mellitus intermediate school teacher insulin use: without intermediate school teacher use (4) Multiple myeloma Code(s): C90.00 - MULTIPLE MYELOMA NOT HAVING ACHIEVED REMISSION Status: Chronic Qualifiers: Multiple myeloma remission status: not in remission Qualified Code(s): C90.00 - Multiple myeloma not having achieved remission - Plan Plan: Sepsis 2/2 Perirectal Abscess s/p I&D, POD1 -3.5-[address] -s/p I&D -Continue Vanc and zosyn pending wound Cx which are showing mixed bacteria -Blood cultures NGTD -Stable, continue supportive care Multiple Myeloma -hold revlimid due to thrombocytopenia -per last consult note Apr 24, pt is on revlimid maintenance 10 mg QD -Dr. Morejon consulted, recs appreciated Pancytopenic Fever -likely 2/2 to multiple myeloma treatment -Continue Vanc and zosyn -Tylenol for fever Diffuse osteopenia with multiple compression fx of lumbar vertebra -Likely from MM -Monitor, discuss w/ heme/onc T2DM -A1C 5.5% - Metformin resumed -SSI with accuchecks Mild hyponatremia-resolved Elevated Alk Phos -follow up outpatient Diet: CC DVT ppx: SCDs, no pharmaco ppx as thrombocytopenic GI ppx: none PCP: ALEX Larkin Code status: Full Addendum - Attending - Attending Attestation Date/Time: 10/12/19 1007 I personally evaluated the patient and discussed the management with Dr. Horvath I agree with the History, Examination, Assessment and Plan documented above with any addition or exceptions noted below. 74 yo M with MM admitted with neutropenic fever 2/2 gluteal abscess. I&D with general surgery yesterday. Onc consulted, appreciate recs on pancytopenia. Culture with mixed alan, gram negative rods predominantly at this time. Will continue current broad-spectrum antibiotics.
[2019-10-12] MEDS ORDERED: Potassium Chloride 20 MEQ TAB PO SCH (07:30)
--- NOTE | 2019-10-12 07:48 | PRG ---
DATE OF SERVICE: 10/12/2019 SUBJECTIVE: The patient is reporting much less pain, feels pretty good. He is tolerating the diet. OBJECTIVE: VITAL SIGNS: His temperature is 97.9, pulse 68, blood pressure 121/70. GENERAL: He is awake, alert. ABDOMEN: Soft, nondistended. The wound is clean. Does not appear to be actively bleeding. ASSESSMENT: Large perirectal abscess with pancytopenia due to multiple myeloma. PLAN: He is going to need home health. We will consult Case Management. Job ID: [id number]
[2019-10-12] MEDS: metFORMIN 500 MG TAB PO SCH ×2 (08:20→20:52)
--- NOTE | 2019-10-12 16:50 | CON ---
DATE OF CONSULTATION: REASON FOR CONSULTATION: Multiple myeloma. HISTORY OF PRESENT ILLNESS: Mr. Harden is a very pleasant 74-year-old Luxembourgish-speaking male who is under the care of Dr. Morejon for multiple myeloma. He is currently on maintenance Revlimid 10 mg daily. This was started in November 2018. He has light chain myeloma, which has been normalized with Revlimid. He has had some difficulty with pancytopenia secondary to treatment. Unfortunately, he presented to the emergency room on October 09 with left buttock pain and fever. There was a perirectal abscess noted on CT scan. He also had diffuse osteopenia with compression fractures of the lumbar vertebrae. This was consistent with prior scans for his myeloma. He underwent I and D of the abscess and his pain has been relieved. On admission, his white count was 1.5, hemoglobin was 10, and platelet count was 31,000. He has been on vancomycin and Zosyn for infection. He required a dose of platelets with improvement to his count of 54,000. He also received the unit of blood. His hemoglobin is currently 7.9. He denies any complaints at this time. He was seen at bedside with his daughter present. PAST MEDICAL HISTORY: 1. Multiple myeloma. 2. Diabetes. 3. Chronic pancytopenia from myeloma treatment. PAST SURGICAL HISTORY: Lumbar surgery in [place] in November 2017. ALLERGIES: NO KNOWN DRUG ALLERGIES. HOME MEDICATIONS: 1. [place] 10/325. 2. Revlimid 10 mg daily. 3. Colace daily. 4. Metformin 1000 mg b.i.d. FAMILY HISTORY: Of diabetes. SOCIAL HISTORY: . Has six children. Former smoker. No alcohol or illicit drug use. REVIEW OF SYSTEMS: A 10-point review of systems is negative. PHYSICAL EXAMINATION: VITAL SIGNS: Temperature is 97.9, pulse is 68, respiratory rate 20, blood pressure is 121/70, he is 97% on room air. GENERAL: This is a well-developed, well-nourished male, in no acute distress. HEENT: Normocephalic, atraumatic. Pupils are equal and reactive to light. NECK: Supple. CV: Regular rate and rhythm. LUNGS: Clear. ABDOMEN: Soft. Bowel sounds are positive. NEUROLOGIC: Nonfocal. PERTINENT LABS AND X-RAYS: Current WBCs are 1.9, hemoglobin 7.9, hematocrit 22.9, platelet count 54,000, 62% neutrophils, 27% lymphocytes. Sodium is 139, potassium 3.3, chloride 113, CO2 is 18, BUN is 8, creatinine 0.82, calcium 7.4, magnesium 1.9, bilirubin 0.7, AST is 9, ALT is 13, alkaline phosphatase is 74, serum total protein is 4, albumin 2.3, and globulin 1.7. Normal B12 and folate. COVID negative. ASSESSMENT: 1. Multiple myeloma, on Revlimid maintenance. 2. Pancytopenia from Revlimid. 3. Perirectal abscess, status post I and D. DISCUSSION: The patient's Revlimid has been held during this hospitalization. We will continue to hold until he follows up in our office next week. He has struggled with pancytopenia from the Revlimid. However, he remains in remission with his multiple myeloma with this treatment. He is on antibiotics including vancomycin and Zosyn for his infection. We would continue per Dr. Benito's recommendations. His compression fractures and osteopenia noted on his CT scan are consistent with prior scans and due to his multiple myeloma. He takes [place] for this chronic pain. If the patient's CBC is stable, he can be discharged when appropriate with the surgeon. He will see us next week in the clinic to recheck his CBC and discuss any treatment changes. Thank you for the consult. Job ID: [id number]
[2019-10-12] MEDS ORDERED: AFRIN NASAL MIST 15 ML BOT ONE (17:38)
[2019-10-13] MEDS: Sodium Chloride 0.9% 1,000 ML IV SCH ×3 (00:06→14:12)
[2019-10-13] MEDS: Piperacillin/Tazobactam 4.5 GM in Sodium Chloride 0.9% 100 ML IVPB SCH ×2 (02:12→08:12)
[2019-10-13] MEDS: Vancomycin HCl 1.25 GM in Sodium Chloride 0.9% 250 ML 250 ML IVPB SCH (05:41)
[2019-10-13 07:27] VITALS: BP 155/83; TEMP 97.7
--- NOTE | 2019-10-13 08:07 | PDOC.FM ---
- Subjective Subjective: NAEO. No pain, no concerns, used top cleaner. Feels well. Plans to go home with HH. - Objective Vital Signs & Weight: Vital Signs (12 hours) Temp Pulse Resp BP BP Pulse Ox 10/13/19 07:23 97.7 F 76 16 155/83 H 98 10/13/19 04:11 98 F 70 18 128/72 98 10/12/19 23:48 97.6 F 74 18 119/71 98 Weight Admit Weight 79.288 kg Weight 61.204 kg I&O: 10/12/19 10/13/19 10/14/19 06:59 06:59 06:59 Intake Total 240 2070 Output Total 400 Balance 240 1670 Result Diagrams: 10/13/19 08:13 10/13/19 08:13 Phys Exam - Physical Examination Constitutional: NAD HEENT: PERRLA, moist MMs Respiratory: no wheezing, clear to auscultation bilateral Cardiovascular: RRR, no significant murmur Gastrointestinal: soft, non-tender Musculoskeletal: no edema Neurological: non-focal, moves all 4 limbs Psychiatric: normal affect, A&O x 3 Deviation from normal: left buttock bandaged Dx/Plan (1) Elevated alkaline phosphatase level Code(s): R74.8 - ABNORMAL LEVELS OF OTHER SERUM ENZYMES Status: Acute (2) Perirectal abscess Code(s): K61.1 - RECTAL ABSCESS Status: Acute (3) DMII (diabetes mellitus, type 2) Status: Chronic Qualifiers: Diabetes mellitus terminal worker insulin use: without terminal worker use (4) Multiple myeloma Code(s): C90.00 - MULTIPLE MYELOMA NOT HAVING ACHIEVED REMISSION Status: Chronic Qualifiers: Multiple myeloma remission status: not in remission Qualified Code(s): C90.00 - Multiple myeloma not having achieved remission - Plan Plan: Sepsis 2/2 Perirectal Abscess s/p I&D, POD3 -3.5-[address] -s/p I&D -Continue Vanc and zosyn pending wound Cx which are showing mixed bacteria -Blood cultures NGTD -Stable, continue supportive care Anemia -Hb 7.9 s/p 1 PRBC -2/2 revlimid -Stable and improved today with Hb 9.5 Thrombocytoepenia -s/p 1 FFP -Stable Multiple Myeloma -hold revlimid due to thrombocytopenia -per last consult note Dec 2/19, pt is on revlimid maintenance 10 mg QD -Dr. Morejon consulted, hold revlimid, f/u OP next week Pancytopenia -likely 2/2 to multiple myeloma revlimid -Continue Vanc and zosyn pending wound cx -Tylenol for fever Diffuse osteopenia with multiple compression fx of lumbar vertebra -Likely from MM -Monitor, discuss w/ heme/onc T2DM -A1C 5.5% - Metformin resumed -SSI with accuchecks Mild hyponatremia-resolved Elevated Alk Phos -follow up outpatient Diet: CC DVT ppx: SCDs, no pharmaco ppx as thrombocytopenic GI ppx: none PCP: ALEX Larkin Code status: Full Dispo: Home pending wound culture finalization, will transition to oral abx. Pending approval Addendum - Attending - Attending Attestation Date/Time: 10/13/19 6421 I personally evaluated the patient and discussed the management with Dr. Horvath I agree with the History, Examination, Assessment and Plan documented above with any addition or exceptions noted below. 74 yo M with MM admitted with neutropenic fever 2/2 gluteal abscess. Continue doxycycline for 2 weeks per surgery. Surgery has signed off, patient ok for discharge once home health is setup. Will hold revlimid until follow up with onc outpatient.
[2019-10-13] MEDS: metFORMIN 500 MG TAB PO SCH (08:12)
[2019-10-13 08:27] LABS: #Lymphocytes 0.8 thou/uL (1.20-3.40); #Monocytes 0.2 thou/uL (0.11-0.59); #Neutrophils 1.4 thou/uL (1.40-6.50); %Lymphocytes 33.1 % (21.0-51.0); %Monocytes 7.1 % (0.0-10.0); %Neutrophils 57.9 % (42.0-75.0); Hemoglobin 9.5 g/dL (14.0-18.0); Mean Corpuscular HGB CONC 32.9 g/dL (32.0-36.0); Mean Corpuscular Hemoglobin 34.1 pg (27.0-31.0); Platelet Count 56 thou/uL (130-400); RBC Distribution Width 13.6 % (11.5-14.5); Red Blood Cell (RBC) Count 2.78 mill/uL (4.70-6.10); White Blood Cell (WBC) Count 2.3 thou/uL (4.8-10.8)
[2019-10-13 08:43] LABS: Anion Gap 13 mmol/L (10-20); BUN (Urea Nitrogen) 6 mg/dL (8.4-25.7); Calc. Creatinine Clearance 71 mL/min (70-130); Carbon Dioxide 19 mmol/L (23-31); Chloride 112 mmol/L (98-107); Estimated GFR-MDRD Greater than 90; Glucose 117 mg/dL (83-110); Potassium 3.5 mmol/L (3.5-5.1); Sodium 140 mmol/L (136-145)
[2019-10-13 10:28] LABS: MDiff Complete? YES
--- NOTE | 2019-10-13 11:10 | PRG ---
DATE OF SERVICE: 10/13/2019 The patient feels fine. Pain is minimal. Temperature is 97.7, pulse 76, and blood pressure 155/83. He is doing well. His wound is healing well. Plan is he still needs quite an extensive wound care. He has lack of funding. He is not a candidate for home health or nursing home, so he probably stay in the hospital for a while. I have discussed this case with Family Practice, Dr. Horvath, who will transfer him to their service for further wound care. Job ID: [id number]
[2019-10-13] MEDS ORDERED: Doxycycline 100 MG CAP PO SCH (21:00)
--- NOTE | 2019-10-14 05:30 | DIS ---
DATE OF ADMISSION: 10/10/2019 DATE OF DISCHARGE: 10/13/2019 DISCHARGE ATTENDING: Idris Alicia MD. RESIDENT: Renea Horvath MD, PGY-2. CONSULTS: 1. General surgery, Dr. Benito. 2. Oncology, Dr. Rivera Morejon. 3. Case Management. PRIMARY DIAGNOSES: 1. Sepsis secondary to perirectal cellulitis with abscess. 2. Thrombocytopenia requiring platelets secondary to Revlimid. 3. Pancytopenia secondary to Revlimid. 4. Multiple myeloma on immunosuppression. 5. Type 2 diabetes. SECONDARY DIAGNOSES: 1. Elevated alkaline phosphatase. 2. Mild hyponatremia. 3. Multiple myeloma. 4. Compression fractures of lumbar vertebra. PROCEDURES AND IMAGIN. Incision and debridement of left perirectal abscess. 2. CT abdomen and pelvis, evidence of left perirectal abscess with inflammatory change extending to the subcutaneous tissues of the left buttock. Diffuse osteopenia with compression fractures involving the lumbar vertebra. DISCHARGE MEDICATIONS: 1. Doxycycline 100 mg p.o. b.i.d. for 14 days. 2. Tylenol. 3. [place] 10/325 two tabs p.o. q.6 hours p.r.n. for pain. 4. Metformin 500 mg p.o. b.i.d. DISCONTINUED MEDICATIONS: Revlimid 10 mg p.o. daily. HISTORY OF PRESENT ILLNESS/HOSPITAL COURSE: Mr. Marisa Harden is a 74-year- old male with pancytopenia and multiple myeloma, who was sent over from clinic due to concern for abscess of left buttock. He was found to have a left perirectal abscess and admitted for sepsis secondary to this. He underwent I&D with successful resolution of systemic symptoms and was placed on IV antibiotics. He has successfully transitioned to p.o. antibiotics on discharge. Hospital course was complicated by anemia and thrombocytopenia requiring 1 unit of platelets and packed red blood cells. Patient came in pancytopenic and all his was thought to be secondary to his Revlimid which he is currently taking for his multiple myeloma. Oncology was consulted who agreed to hold Revlimid for now since he is in resmission and to follow up ouatpeitn. He was discharged with instructions for wound care and his family is able to help in this. Plans to follow up at the outpatient wound care clinic in [place] DISPOSITION: Stable. DISCHARGE INSTRUCTIONS: 1. Location: Home. 2. Diet: Carb consistent. 3. Activity: Ad efra as tolerated. FOLLOWUP: 1. Please follow up with Dr. Trevino on 10/16 for a wound check at [facility] and [facility]. 2. Please follow up with Wound Care outpatient next Wednesday. 3. Please follow with Dr. Morejon next Wednesday at 5:27. 4. Please consider repeat CMP to trend ALP. Job ID: [id number] MTDD
== END 2019-10-13 16:07 | disposition home or self-care (01) | DRG 853 ==
LOC: ERS 16:29 → 2SW 21:23 → T4-B 10-11 15:43
PROVIDERS: ADMIT Surgery; ATTEND Family Medicine
PROC: 0J990ZZ Drainage of Buttock Subcutaneous Tissue and Fascia, Open Approach (ICD-10-PCS; principal; 2019-10-11)
DX: A41.9 Sepsis, unspecified organism (principal); D61.810 Antineoplastic chemotherapy induced pancytopenia; C90.00 Multiple myeloma not having achieved remission; K61.1 Rectal abscess; E87.1 Hypo-osmolality and hyponatremia; M84.58XA Pathological fracture in neoplastic disease, other specified site, initial encounter for fracture; E11.9 Type 2 diabetes mellitus without complications; T45.1X5A Adverse effect of antineoplastic and immunosuppressive drugs, initial encounter
CPT/HCPCS: 36415; 36416; 36430; 74177; 80048; 80053; 80202; 81003; 81015; 82607; 82746; 83036; 83605; 83735; 85025; 85060; 86850; 86900; 86901; 87040; 87070; 87077; 87186; 87205; 87635; 93005; 96365; 96366; 96367; 96375; J0692; J2001; J2270; J2405; J2543; J2704; J3010; J3370; J3475; J3480; J3490; J7050; P9016; P9035; Q9967; U0003

== ENCOUNTER 2019-11-01 11:05 | Day surgery (SDC) | payer OTHER, SELFPAY ==
[~2019-11-01 11:05] MED LIST changes: -Iopamidol-370 76% 500 ML 1 ML ONE; +Zoledronic Acid 4 MG in Sodium Chloride 0.9% 100 ML IVPB SCH
[2019-11-01] MEDS ORDERED: Sodium Chloride 0.9% 20 ML ONE (11:08)
[2019-11-01 11:11] VITALS: BP 139/66; TEMP 97.6
== END 2019-11-01 12:52 | disposition home or self-care (01) ==
LOC: ONC/OP 11:05
PROVIDERS: ATTEND Internal Medicine Hematology & Oncology
DX: C90.00 Multiple myeloma not having achieved remission (principal); C79.51 Secondary malignant neoplasm of bone
CPT/HCPCS: 36415; 82565; 96365; J3489; J3490

== ENCOUNTER 2020-01-24 11:12 | Day surgery (SDC) | payer OTHER ==
[2020-01-24] MEDS ORDERED: Sodium Chloride 0.9% 20 ML ONE (11:15)
[2020-01-24 11:21] VITALS: BP 154/67; TEMP 97.7
== END 2020-01-24 11:47 | disposition home or self-care (01) ==
LOC: ONC/OP 11:12
PROVIDERS: ATTEND Internal Medicine Hematology & Oncology
DX: Z51.11 Encounter for antineoplastic chemotherapy (principal); C90.00 Multiple myeloma not having achieved remission; C79.51 Secondary malignant neoplasm of bone
CPT/HCPCS: 80053; 82248; 83615; 83883; 84100; 84550; 96365; J3489; J3490

== ENCOUNTER 2020-02-15 09:50 | Outpatient (CLI) | payer OTHER ==
[2020-02-15 14:30] LABS: ALT (SGPT) 24 U/L (8-55); AST (SGOT) 25 U/L (5-34); Alkaline Phosphatase 109 U/L (40-110); Anion Gap 16 mmol/L (10-20); BUN (Urea Nitrogen) 15 mg/dL (8.4-25.7); Bilirubin, Total 0.5 mg/dL (0.2-1.2); Calc. Creatinine Clearance 0 mL/min (70-130); Calcium 8.5 mg/dL (7.8-10.44); Carbon Dioxide 22 mmol/L (23-31); Chloride 102 mmol/L (98-107); Estimated GFR-MDRD 66; Globulin 2.1 g/dL (2.4-3.5); Glucose 107 mg/dL (83-110); Potassium 4.4 mmol/L (3.5-5.1); Protein, Total 6.1 g/dL (5.8-8.1); Sodium 136 mmol/L (136-145)
[2020-02-15 14:43] LABS: Band 27 % (5-11); Eosinophils 2 % (0-10); Hemoglobin 8.8 g/dL (14.0-18.0); Lymphocytes 54 % (21-51); MDiff Complete? YES; Macrocytosis SLIGHT = 6-15 cells (100X) (0-5/hpf); Mean Corpuscular HGB CONC 34.3 g/dL (32.0-36.0); Mean Corpuscular Hemoglobin 36.1 pg (27.0-31.0); Mean Platelet Volume 9.9 fL (7.4-10.4); Monocytes 7 % (0-10); Neutrophil 6 % (42-75); Platelet Count 34 thou/uL (130-400); Platelet Morphology Comment Appears Decreased; Polychromasia SLIGHT = 2-3 cells (100X) (0-2/hpf); RBC Distribution Width 13.6 % (11.5-14.5); Reactive Lymphocytes 4 % (0-10); Red Blood Cell (RBC) Count 2.45 mill/uL (4.70-6.10); Reflex for Review?? NO; Tear Drops SLIGHT = 2-5 cells (100X) (0-1/hpf); White Blood Cell (WBC) Count 1.5 thou/uL (4.8-10.8)
[2020-02-16 12:03] LABS: SARS-CoV-2 MS2 Positive; SARS-CoV-2 N Gene Negative; SARS-CoV-2 S Gene Negative; SARS-CoV-2 by NAA Not Detected (NotDetected); SARS-CoV-2 orf1ab Negative
== END 2020-02-15 09:51 | disposition home or self-care (01) ==
LOC: LABBT 09:50
PROVIDERS: ATTEND Surgery
DX: Z01.818 Encounter for other preprocedural examination (principal); Z20.828 Contact with and (suspected) exposure to other viral communicable diseases; K60.3 Anal fistula
CPT/HCPCS: 80053; 85025; 87635; U0003

== ENCOUNTER 2020-03-13 12:34 | Day surgery (SDC) | payer OTHER ==
[2020-03-13] MEDS ORDERED: Acetaminophen 500 MG TAB PO PRN (13:01)
[2020-03-13] MEDS ORDERED: diphenhydrAMINE 25 MG CAP PO PRN (13:01)
[2020-03-13 13:02] VITALS: BMI 25.0
[2020-03-13 20:53] VITALS: BP 150/66; TEMP 98.2
[2020-03-13 21:20] LABS: Mean Corpuscular HGB CONC 34.4 g/dL (32.0-36.0); Mean Corpuscular Hemoglobin 33.7 pg (27.0-31.0); Mean Platelet Volume 10.6 fL (7.4-10.4); Platelet Count 22 thou/uL (130-400); RBC Distribution Width 16.2 % (11.5-14.5); Red Blood Cell (RBC) Count 2.97 mill/uL (4.70-6.10)
[2020-03-13 21:34] LABS: Band 5 % (5-11); Eosinophils 1 % (0-10); Lymphocytes 56 % (21-51); MDiff Complete? YES; Monocytes 9 % (0-10); Neutrophil 28 % (42-75); Platelet Morphology Comment Appears Decreased
== END 2020-03-13 21:12 | disposition home or self-care (01) ==
LOC: SDC/OP 12:34 → ONC 12:41 → SDC/OP 21:12
PROVIDERS: ATTEND Internal Medicine Hematology & Oncology
PROC: 30233N1 Transfusion of Nonautologous Red Blood Cells into Peripheral Vein, Percutaneous Approach (ICD-10-PCS; principal; 2020-03-13)
DX: D64.9 Anemia, unspecified (principal); D69.6 Thrombocytopenia, unspecified
CPT/HCPCS: 36415; 36430; 85025; 86850; 86900; 86901; P9016; Q0163

== ENCOUNTER 2020-04-17 10:24 | Inpatient (IN) | payer OTHER ==
[2020-04-17] MEDS ORDERED: Iopamidol 370 76% 100 ML VIAL ONE (11:17)
[2020-04-17 11:18] LABS: #Basophils 0.1 thou/uL (0.0-0.2); #Lymphocytes 0.5 thou/uL (1.20-3.40); #Monocytes 0.2 thou/uL (0.11-0.59); #Neutrophils 3.1 thou/uL (1.40-6.50); %Basophils 1.3 % (0.0-1.0); %Eosinophils 0.3 % (0.0-10.0); %Lymphocytes 12.8 % (21.0-51.0); %Monocytes 6.2 % (0.0-10.0); %Neutrophils 79.5 % (42.0-75.0); Hemoglobin 7.2 g/dL (14.0-18.0); Mean Corpuscular HGB CONC 35.7 g/dL (32.0-36.0); Mean Corpuscular Hemoglobin 36.2 pg (27.0-31.0); Platelet Count 21 thou/uL (130-400); RBC Distribution Width 18.6 % (11.5-14.5); Red Blood Cell (RBC) Count 1.99 mill/uL (4.70-6.10); White Blood Cell (WBC) Count 3.9 thou/uL (4.8-10.8)
[2020-04-17] MEDS ORDERED: Cefepime 2 GM VIAL ONE (11:19)
[2020-04-17 12:03] LABS: ALT (SGPT) 24 U/L (8-55); AST (SGOT) 19 U/L (5-34); Alkaline Phosphatase 132 U/L (40-110); Anion Gap 17 mmol/L (10-20); BUN (Urea Nitrogen) 18 mg/dL (8.4-25.7); Bilirubin, Total 0.8 mg/dL (0.2-1.2); Calc. Creatinine Clearance 0 mL/min (70-130); Calcium 8.8 mg/dL (7.8-10.44); Carbon Dioxide 19 mmol/L (23-31); Chloride 105 mmol/L (98-107); Estimated GFR-MDRD 65; Glucose 150 mg/dL (83-110); Potassium 3.7 mmol/L (3.5-5.1); Protein, Total 6.5 g/dL (5.8-8.1); Sodium 137 mmol/L (136-145)
[2020-04-17 12:08] LABS: Platelet Morphology Comment Appears Decreased; Polychromasia MODERATE = 3-4 cells (100X) (0-2/hpf); Tear Drops SLIGHT = 2-5 cells (100X) (0-1/hpf)
[2020-04-17 12:09] LABS: Anisocytosis MODERATE=16-30 cells (100X) (0-5/hpf)
[2020-04-17 12:15] LABS: Albumin 3.8 g/dL (3.4-4.8); Globulin 2.7 g/dL (2.4-3.5)
[2020-04-17] MEDS ORDERED: Vancomycin 1 GM/200 ML BAG ONE (12:56)
[2020-04-17] MEDS ORDERED: Ondansetron PF 4 MG/2 ML Vial ONE (12:56)
[2020-04-17] MEDS ORDERED: Morphine 4 MG/ML VIAL ONE (12:56)
--- NOTE | 2020-04-17 12:57 | CT ---
EXAM: CT Pelvis W Con PROVIDED CLINICAL HISTORY: Gluteal infection COMPARISON: 10/10/2019 FINDINGS: There is extensive reticulation of the subcutaneous adipose layer at the inferior aspect of the left gluteal region. There is asymmetric enlargement and hypodensity involving portions of the adjacent inferomedial gluteus devaughn muscle on the left. There is a ovoid focus of altered CT density at the caudal aspect of the cleft measuring at nahed st 8.2 x 1.7 cm and greatest transverse dimensions. This demonstrates Hounsfield units suggestive of either phlegmon or blood products. There is no discrete fluid density collection. There is mural thickening involving the rectum and distal sigmoid colon with surrounding fat strandin g changes. There is no evidence for free pelvic fluid. No bowel dilatation or additional inflammatory fat stranding is evident. There is diffuse regional osteopenia with multiple compression deformities seen involving the visuali zed lumbar spine. No focal lytic process to suggest osteomyelitis. IMPRESSION: 1. Cellulitis and nonspecific myositis involving the left inferior gluteal region, with 8.2 seen invo lving the anterior circumscribed focus of phlegmon and/or blood products. No drainable fluid density collection is evident. 2. Mural thickening involving the rectum and distal sigmoid colon with surrounding fat stranding, com patible with proctocolitis.
[2020-04-17] MEDS ORDERED: HumaLOG 300 UNITS/3 ML VIAL SC PRN ×2 (14:09)
[2020-04-17] MEDS ORDERED: Ondansetron ODT 4 MG TAB PO PRN (14:09)
[2020-04-17] MEDS ORDERED: Dextrose 50% Abboject 50 ML SYRINGE SLOW IVP PRN (14:09)
[2020-04-17] MEDS ORDERED: Dextrose 5% in Water 1,000 ML IV PRN (14:09)
[2020-04-17] MEDS ORDERED: HYDROcodone/Acetaminophen 10/325 mg Tablet PO PRN ×2 (14:15→15:55)
--- NOTE | 2020-04-17 14:25 | PDOC.FPRHP ---
- History of Present Illness Chief Complaint: pain in bottom History of Present Illness: 74YOM with a PMH notable for multiple myeloma currently not on immunosuppressive therapy and DMII who presented to the ER for pain in his bottom. Patient reports that the pain has been ongoing since initially being diagnosed with and treated for a rectal abscess in 09/2019 with incomplete healing of the site as well. States he now has "lumps" in his bottom that are very painful and intermittently bleed. Denies any associated fever/chills, N/V/D, or abdominal pain. Also denies any purulent drainage from the sites. Was seen in our clinic on 04/11/20 & started on PO augmentin for tx of Of note, has reportedly been off of his MM m edication for the last month per the instructions of his oncologist, Dr. Morejon. Also of note, reports he has an upcoming appt with Dr. Benito on 05/04/20. ED Course: Patient was given IV vancomycin and cefepime as well as 4mg IV zofran and morphine. - Allergies/Adverse Reactions Allergies Allergy/AdvReac Type Severity Reaction Status Date / Time No Known Allergies Allergy Verified 02/16/20 11:41 - Home Medications Medication Instructions Recorded Confirmed Type metFORMIN [Glucophage] 500 mg PO BID 04/14/18 02/16/20 History HYDROcodone Bit/APAP 10 [Kayenta] 2 tab PO Q6HR PRN 03/30/19 02/16/20 History Lenalidomide [Revlimid] 10 mg PO DAILY 02/16/20 02/16/20 History - History PMHx: multiple myeloma with chronic anemia & thrombocytopenia as well as DMII PSHx: anal fistulotomy (01/2020) and perirectal abscess I&D (09/2019), prostate & back Sx FHx: brothers- DMII Social: No TAD. Lives at home with and daughters. - Review of Systems General: denies: fever/chills, night sweats Eyes: denies: eye pain, vision changes ENT: denies: nasal congestion, rhinorrhea Respiratory: denies: cough, congestion Cardiovascular: denies: chest pain, palpitation Gastrointestinal: denies: nausea, vomiting, diarrhea Genitourinary: denies: dysuria, polyuria Skin: reports: lesions. denies: jaundice Musculoskeletal: reports: pain, tenderness Neurological: denies: syncope, seizure Psychological: denies: anxiety, depression - Vital signs BP: 124/65 HR: 82 RR: 20 Tmax: 98.4F Pox: 100% on RA Wt: 62 kg - Physical Exam Constitutional: NAD, awake, alert and oriented, well developed HEENT: normocephalic and atraumatic, grossly normal vision, grossly normal hearing, MMM Neck: supple, FROM Heart: RRR, normal S1/S2, no murmurs/rubs/gallops Lungs: CTAB, no respiratory distress, good air movement, no rales/rhonchi, no wheezing, no retractions Abdomen: soft, non-tender, bowel sounds present, no masses/distention Musculoskeletal: normal structure, ROM grossly normal Neurological: no focal deficit, CN II-XII intact (grossly) Skin: other (2 left-sided perirectal masses measuring ~ 2.5x2.5 & 2x2cm respectively with mild superficial ulceration noted; no purulence or fluctuance appreciated) Heme/Lymphatic: no unusual bruising or bleeding Psychiatric: normal mood and affect, good judgment and insight, intact recent and remote memory FMR H&P: Results - Labs Result Diagrams: 04/18/20 05:58 04/18/20 05:58 Lab results: WBC 3.9 thou/uL (4.8-10.8) L 04/17/20 10:59 Hgb 7.2 g/dL (14.0-18.0) L 04/17/20 10:59 Hct 20.2 % (42.0-52.0) L 04/17/20 10:59 MCV 101.0 fL (78.0-98.0) H 04/17/20 10:59 Plt Count 21 thou/uL (130-400) L* 04/17/20 10:59 Neutrophils % 79.5 % (42.0-75.0) H 04/17/20 10:59 Sodium 137 mmol/L (136-145) 04/17/20 10:59 Potassium 3.7 mmol/L (3.5-5.1) 04/17/20 10:59 Chloride 105 mmol/L (98-107) 04/17/20 10:59 Carbon Dioxide 19 mmol/L (23-31) L 04/17/20 10:59 BUN 18 mg/dL (8.4-25.7) 04/17/20 10:59 Creatinine 1.11 mg/dL (0.7-1.3) 04/17/20 10:59 Glucose 150 mg/dL (83-110) H 04/17/20 10:59 Lactic Acid 1.2 mmol/L (0.5-2.2) 04/17/20 11:39 Calcium 8.8 mg/dL (7.8-10.44) 04/17/20 10:59 Total Bilirubin 0.8 mg/dL (0.2-1.2) 04/17/20 10:59 AST 19 U/L (5-34) 04/17/20 10:59 ALT 24 U/L (8-55) 04/17/20 10:59 Alkaline Phosphatase 132 U/L (40-110) H 04/17/20 10:59 Serum Total Protein 6.5 g/dL (5.8-8.1) 04/17/20 10:59 Albumin 3.8 g/dL (3.4-4.8) 04/17/20 10:59 - Radiology Interpretation CT scan - pelvis Status: image reviewed by me, report reviewed by me (cellulitis & nonspecific myositis in left intergluteal region w/ no drainable fluid collection noted mural thickening in distal colon & rectum w/ fat stranding c/w proctocolitis) FMR H&P: A/P - Problem List (1) Proctocolitis Current Visit: Yes Status: Acute Code(s): K52.9 - NONINFECTIVE GASTROENTERITIS AND COLITIS, UNSPECIFIED (2) Mass of perirectal soft tissue Current Visit: Yes Status: Chronic Code(s): K62.89 - OTHER SPECIFIED DISEASES OF ANUS AND RECTUM (3) DMII (diabetes mellitus, type 2) Current Visit: No Status: Chronic Qualifiers: Diabetes mellitus penitentiary insulin use: without manager intermediate use (4) Multiple myeloma Current Visit: Yes Status: Chronic Code(s): C90.00 - MULTIPLE MYELOMA NOT HAVING ACHIEVED REMISSION Qualifiers: Multiple myeloma remission status: not in remission Qualified Code(s): C90.00 - Multiple myeloma not having achieved remission (5) Pancytopenia Current Visit: Yes Status: Chronic Code(s): D61.818 - OTHER PANCYTOPENIA - Plan 74YOM with a PMH notable for MM with chronic pancytopenia and DMII presenting for evaluation for perirectal pain. Perirectal masses: - Patient initially tachycardic in 120s on presentation with a WBC of 3.9 so was deemed septic from a possible perirectal infection. However, no overt drainable fluid collection noted on exam, per patient report, or on CT. IN addition, tachycardia resolved prior to initiation of abx & no fluids were given for resuscitation. s/p blood culture draw & broad spectrum IV abx in ED. Will not continue. - Olayinka consulted general surgeon personal development educator for possible biopsy of lesions while inpatient due to concern for a possible superficial malignant process. However, due to patient having an upcoming appt with Dr. Benito on 05/04/20 surgeon personal development educator deferred care to patient's primary surgeon. Contacted primary surgeon, Dr. Benito, who reported patient can follow-up in office if stable but otherwise defer to personal development educator surgeon. - Will start PO doxy for cellulitis & proctocolitis coverage to noted on CT. - PRN Kayenta for pain control. Proctocolitis: - Noted on CT scan but patient denies any GI complaints. Will start PO doxy today as noted above. Pancytopenia: - WBC 3.9 which is actually the highest it has been in months per chart review. - Hgb 7.2 down from ~10 in 02/2020. s/p 1U PRBCs in the ED. Will recheck in the CBC in AM as patient not actively bleeding & asymptomatic and has run that low previously. - Plts 21 but were only 22 in 02/2020. - Will continue to hold MM meds. Multiple Myeloma: - Aware, patient follows closely with Dr. Morejon. Not taking immunosuppressants right now per his instructions. Will continue to hold while inpatient. Touched based with oncology who reported they actually sent patient to ED for evaluation after seeing him in the office today. Will see patient if we need their assistance in management but report patient's oncologist is personal development educator this weekend so will notify him if patient remain in house by that time. DMII: - Aware, continue home metformin. Dispo: Will admit for close observation overnight with plans to optimize pain regimen and likely d/c home tomorrow with close follow-up with Dr. Benito to JOSH biopsies of his masses. Abx: Augmentin IVFs: SL GI PPX: None DVT PPX: SCDs- thrombocytopenia PCP: BEATA Horvath CODE STATUS: FULL FMR H&P: Upper Level - Plan Date/Time: 04/17/20 1416 I, [], have evaluated this patient and agree with findings/plan as outlined by international recruiter resident. Pertinent changes/additions are listed here. Addendum - Attending - Attending Attestation Date/Time: 04/17/20 1151 I personally evaluated the patient and discussed the management with Dr. Mahoney. I agree with the History, Examination, Assessment and Plan documented above with any addition or exceptions noted below. The patient will admit for pain control. Transfuse prbc. Consult surgery and oncology. Lesion does not look like abscess, I am concerned for a cancer. Needs biopsy. Trend labs.
[2020-04-17 16:39] VITALS: BMI 23.4
[2020-04-17] MEDS: metFORMIN 500 MG TAB PO SCH (20:45)
[2020-04-17] MEDS: Docusate Calcium (SURFAK) 240 MG CAP PO SCH (20:45)
[2020-04-17] MEDS: Doxycycline 100 MG CAP PO SCH (20:54)
[2020-04-17] MEDS ORDERED: Amoxicillin/Potassium Clav 875 MG TAB PO SCH (21:00)
[2020-04-17 22:18] LABS: SARS-CoV-2 MS2 Positive; SARS-CoV-2 N Gene Negative; SARS-CoV-2 S Gene Negative; SARS-CoV-2 by NAA Not Detected (NotDetected); SARS-CoV-2 orf1ab Negative
[2020-04-18] MEDS: HYDROcodone/Acetaminophen 10/325 mg Tablet PO PRN (04:46)
[2020-04-18 06:35] LABS: Hemoglobin 6.6 g/dL (14.0-18.0); Mean Corpuscular HGB CONC 33.7 g/dL (32.0-36.0); Mean Corpuscular Hemoglobin 31.7 pg (27.0-31.0); Mean Platelet Volume 12.1 fL (7.4-10.4); Platelet Count 19 thou/uL (130-400); RBC Distribution Width 25.5 % (11.5-14.5); Red Blood Cell (RBC) Count 2.07 mill/uL (4.70-6.10); White Blood Cell (WBC) Count 3.1 thou/uL (4.8-10.8)
[2020-04-18 06:39] LABS: Anion Gap 13 mmol/L (10-20); BUN (Urea Nitrogen) 14 mg/dL (8.4-25.7); Calc. Creatinine Clearance 67 mL/min (70-130); Calcium 8.4 mg/dL (7.8-10.44); Carbon Dioxide 21 mmol/L (23-31); Chloride 108 mmol/L (98-107); Estimated GFR-MDRD 89; Glucose 106 mg/dL (83-110); Potassium 3.7 mmol/L (3.5-5.1); Sodium 138 mmol/L (136-145)
[2020-04-18 08:23] LABS: Anisocytosis MODERATE=16-30 cells (100X) (0-5/hpf); Band 12 % (5-11); Lymphocytes 11 % (21-51); MDiff Complete? YES; Monocytes 4 % (0-10); Neutrophil 73 % (42-75); Ovalocytes SLIGHT = 2-5 cells (100X) (0-1/hpf); Platelet Morphology Comment Appears Decreased; Polychromasia MODERATE = 3-4 cells (100X) (0-2/hpf)
[2020-04-18] MEDS: metFORMIN 500 MG TAB PO SCH ×2 (08:45→21:03)
[2020-04-18] MEDS: Doxycycline 100 MG CAP PO SCH ×2 (08:45→21:03)
[2020-04-18] MEDS: Docusate Calcium (SURFAK) 240 MG CAP PO SCH ×2 (08:45→21:03)
--- NOTE | 2020-04-18 08:56 | PDOC.FM ---
- Subjective Subjective: Patient had persistent bleeding from wounds overnight. VS remained stable. Reports pain with sitting on the wounds but otherwise pain controlled. - Objective MAR Reviewed: Yes Vital Signs & Weight: Vital Signs (12 hours) Temp Pulse Resp BP Pulse Ox 04/18/20 07:32 98.0 F 71 18 100/59 L 92 L 04/18/20 04:45 97.5 F L 75 18 116/65 96 04/17/20 23:45 97.4 F L 83 18 109/57 L 99 Weight Weight 62 kg I&O: 04/17/20 04/18/20 04/19/20 06:59 06:59 06:59 Intake Total 325 240 Balance 325 240 Result Diagrams: 04/18/20 05:58 04/18/20 05:58 Phys Exam - Physical Examination Constitutional: NAD HEENT: moist MMs Neck: supple, full ROM Respiratory: no wheezing, no rales, no rhonchi, clear to auscultation bilateral Cardiovascular: RRR, no significant murmur Gastrointestinal: no distention Musculoskeletal: no edema Neurological: non-focal, moves all 4 limbs Psychiatric: normal affect, A&O x 3 Skin: no rash Deviation from normal: left-sided gluteal masses with ulceration & active bl eeding noted Dx/Plan (1) Proctocolitis Code(s): K52.9 - NONINFECTIVE GASTROENTERITIS AND COLITIS, UNSPECIFIED Status: Acute (2) Mass of perirectal soft tissue Code(s): K62.89 - OTHER SPECIFIED DISEASES OF ANUS AND RECTUM Status: Chronic (3) DMII (diabetes mellitus, type 2) Status: Chronic Qualifiers: Diabetes mellitus skilled nursing insulin use: without skilled nursing use (4) Multiple myeloma Code(s): C90.00 - MULTIPLE MYELOMA NOT HAVING ACHIEVED REMISSION Status: Chronic Qualifiers: Multiple myeloma remission status: not in remission Qualified Code(s): C 90.00 - Multiple myeloma not having achieved remission (5) Pancytopenia Code(s): D61.818 - OTHER PANCYTOPENIA Status: Chronic - Plan Plan: 74YOM with a PMH notable for MM with chronic pancytopenia and DMII presenting for evaluation for perirectal pain. Perirectal masses: - Patient initially tachycardic in 120s on presentation with a WBC of 3.9 so was deemed septic from a possible perirectal infection. However, no overt drainable fluid collection noted on exam, per patient report, or on CT. In addition, tachycardia resolved prior to initiation of abx & no fluids were given for res uscitation. s/p blood culture draw & broad spectrum IV abx in ED. Will not continue. - Olayinka consulted general surgeon prison librarian yesterday for possible biopsy of lesions while inpatient; however, at the time patient was not actively bleeding & since patient reported having an upcoming appt with his Dr. Benito care was deferred to patient's primary surgeon. Contacted primary surgeon, Dr. Benito, who reported patient can follow-up in office if stable but otherwise defer to prison librarian surgeon. Will likely attempt to re-consult surgery today. - Will continue PO doxy for cellulitis & proctocolitis coverage noted on CT. - Continue PRN [place] for pain control. Proctocolitis: - Noted on CT scan but patient denies any GI complaints. Will continue PO doxy today as noted above. Pancytopenia: - WBC 3.9-->3.1 this AM. - Hgb 6.6 this AM, see plan below. - Plts 21-->19 this AM in setting of spontaneously bleeding. Will transfuse 2U platelets this AM w/ blood as noted below. - Will consult patient's oncologist, Dr. Morejon who is prison librarian today for further recs. Acute on chronic blood loss anemia: - Hgb down to 6.6 this AM s/p 1U PRBCs in the ED yesterday. Will give 2U PRBCs this AM. Multiple Myeloma: - Aware, patient follows closely with Dr. Morejon. Not taking immunosuppressants right now per his instructions. Will continue to hold while inpatient. Touched based with oncology yesterday who reported they actually sent patient to ED for evaluation after seeing him in the office today. - Will consult patient's oncologist, Dr. Morejon, today as he is prison librarian. DMII: - Aware, continue home metformin. Dispo: Will transfuse blood products today as noted above & consult oncology & likely general surgery for further recs in management. Abx: Doxycycline IVFs: SL GI PPX: None DVT PPX: SCDs- thrombocytopenia & active bleeding PCP: BEATA Horvath CODE STATUS: FULL Addendum - Attending - Attending Attestation Date/Time: 04/18/20 2586 I personally evaluated the patient and discussed the management with Dr. Mahoney. I agree with the History, Examination, Assessment and Plan documented above with any addition or exceptions noted below. Dr. Morejon will be consulted. Patient continues to have bleeding. He recommended we transfuse and give platelets and try to get numbers better so that surgery will be able to address the mass. We will order PRBC and platelets, trend cbc.
[2020-04-18] MEDS ORDERED: FLU VACC QS2020-21(65YR UP)/PF 240 MCG/0.7 ML SYRINGE IM ONE (09:00)
[2020-04-18] MEDS ORDERED: Polyethylene Glycol 3350 17 GM Packet PO SCH (09:00)
[2020-04-18 17:28] LABS: Platelet Count 27 thou/uL (130-400)
[2020-04-18 17:32] LABS: Glucose 124 mg/dL (83-110)
[2020-04-18 18:49] LABS: Platelet Count 57 thou/uL (130-400)
[2020-04-18 20:02] LABS: Hemoglobin 9.4 g/dL (14.0-18.0)
[2020-04-18 21:12] LABS: Glucose 115 mg/dL (83-110)
[2020-04-19] MEDS ORDERED: Polyethylene Glycol 3350 17 GM Packet PO PRN (06:03)
--- NOTE | 2020-04-19 06:09 | PDOC.FM ---
- Subjective Subjective: Patient reports continued bleeding overnight and pain. Per nursing, his brief and dressing were changed last night and have not required changing since. No acute events overnight. - Objective MAR Reviewed: Yes Vital Signs & Weight: Vital Signs (12 hours) Temp Pulse Resp BP Pulse Ox 04/19/20 04:00 97.4 F L 75 16 120/73 97 04/18/20 23:59 97.9 F 81 18 123/72 99 04/18/20 20:00 98.9 F 71 18 105/59 L 97 Weight Weight 62 kg I&O: 04/17/20 04/18/20 04/19/20 06:59 06:59 06:59 Intake Total 325 940 Balance 325 940 Result Diagrams: 04/19/20 06:08 04/18/20 20:41 Phys Exam - Physical Examination Constitutional: NAD HEENT: moist MMs Respiratory: no wheezing, clear to auscultation bilateral Cardiovascular: RRR, no significant murmur Gastrointestinal: soft, positive bowel sounds Musculoskeletal: no edema Neurological: non-focal Psychiatric: normal affect Skin: no rash Dx/Plan - Plan Plan: 74YOM with a PMH notable for MM with chronic pancytopenia and DMII presenting for evaluation for perirectal pain. Perirectal masses: - tachycardic in 120s, WBC of 3.9, deemed septic from a possible perirectal infection; no overt drainable fluid collection noted on exam, per patient report, or on CT. - tachycardia resolved prior to initiation of abx & no fluids were given for resuscitation - s/p blood culture draw & broad spectrum IV abx in EDW, ill not continue. - Curbside consulted general surgeon on 04/17: patient was not actively bleeding at that time, recommended patient keep upcoming appt with Dr. Benito - Contacted primary surgeon, Dr. Benito: follow-up in office if stable but otherwise defer to electronic news gathering camera person surgeon - General Surgery Consulted on 04/19 for continued bleeding and possible biopsy, appreciate recs - PO doxy for cellulitis & proctocolitis noted on CT - PRN [place] for pain control. Proctocolitis: - Noted on CT scan - patient denies any GI complaints - PO doxy Pancytopenia: - WBC 3.9 > 3.1 > 3.7 - Hgb 6.6 > 9.4 > 8.7; s/p 1 unit PRBCs on 04/17 and 2 units of PRBCs on 04/18 - Plts 21 > 19 > 47 > 57; s/p 1U platelets on 04/18 - Oncology, Dr. Morejon consulted Acute on chronic blood loss anemia: - Hgb 6.6 > 9.4 > 8.7 - s/p 1U PRBCs in the ED 04/17 and 2U PRBCs on 04/18 Multiple Myeloma: - Aware, follows closely with Dr. Morejon - Not taking immunosuppressants right now per his instructions. Will continue to hold while inpatient. - Oncology: sent patient to ED for evaluation after seeing him in the office on 04/17 - Dr. Morejon consulted on 04/18, will touch base today regarding recommendations DMII: - Aware, continue home metformin. Dispo: s/p 3 units PRBCs and 1 unit of platelets, will continue to monitor on medical, oncology and general surgery consulted Addendum - Attending - Attending Attestation Date/Time: 04/19/20 2693 I personally evaluated the patient and discussed the management with Dr. Ngo. I agree with the History, Examination, Assessment and Plan documented above with any addition or exceptions noted below. The patient is still having bleeding. Dr. Morejon has been consulted and we will consult gen surg for recs as well. Platelets are improved but still thrombocytopenic. Will trend h/h.
[2020-04-19 06:19] LABS: #Lymphocytes 0.7 thou/uL (1.20-3.40); #Monocytes 0.3 thou/uL (0.11-0.59); #Neutrophils 2.7 thou/uL (1.40-6.50); %Basophils 1.1 % (0.0-1.0); %Eosinophils 0.5 % (0.0-10.0); %Lymphocytes 19.2 % (21.0-51.0); %Monocytes 6.6 % (0.0-10.0); %Neutrophils 72.6 % (42.0-75.0); Hemoglobin 8.7 g/dL (14.0-18.0); Mean Corpuscular HGB CONC 34.4 g/dL (32.0-36.0); Mean Corpuscular Hemoglobin 31.4 pg (27.0-31.0); Mean Corpuscular Volume 91.4 fL (78.0-98.0); Mean Platelet Volume 10.6 fL (7.4-10.4); Platelet Count 47 thou/uL (130-400); RBC Distribution Width 21.9 % (11.5-14.5); Red Blood Cell (RBC) Count 2.78 mill/uL (4.70-6.10); White Blood Cell (WBC) Count 3.7 thou/uL (4.8-10.8)
[2020-04-19] MEDS: Doxycycline 100 MG CAP PO SCH ×2 (08:08→21:37)
[2020-04-19] MEDS: metFORMIN 500 MG TAB PO SCH ×2 (08:08→21:37)
[2020-04-19] MEDS: Docusate Calcium (SURFAK) 240 MG CAP PO SCH ×2 (08:08→21:37)
[2020-04-19] MEDS: HYDROcodone/Acetaminophen 10/325 mg Tablet PO PRN ×2 (13:02→21:41)
[2020-04-19] MEDS: Acetaminophen 325 MG TAB PO PRN (16:36)
[2020-04-19 21:38] LABS: Glucose 105 mg/dL (83-110)
--- NOTE | 2020-04-20 05:11 | CON ---
DATE OF CONSULTATION: 04/19/2020 REASON FOR CONSULTATION: Perianal masses. HISTORY OF PRESENT ILLNESS: Mr. Harden is a 74-year-old man with multiple myeloma, who presented to the emergency room due to pain and bleeding from his bottom. 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 Benito. He states that it has not healed well and that he has had lumps in his bottom that are painful and that when Dr. Benito saw him in the clinic a couple of weeks ago, he poked at an area and that it has been bleeding from there ever since. He denies any fevers or chills. CT of the pelvis performed in the emergency room showed swelling of the muscle and soft tissues of the left perianal and gluteal region without drainable abscess. He has a significant history of multiple myeloma. I spoke with Dr. Morejon about him. He took him off his medication for the multiple myeloma six weeks ago because he thought it might be causing his depression of the patient blood count, but that has not made any difference and he now thinks that it is actually the multiple myeloma causing this. The patient has received transfusions on admission to the hospital and is feeling better from that standpoint, but continues to have pain and bleeding from the perianal area. PAST MEDICAL HISTORY: Multiple myeloma with pancytopenia and type 2 diabetes. MEDICATIONS: Outpatient medications include, 1. Revlimid. 2. [place]. 3. Metformin. Inpatient medications include, 1. Sliding scale insulin. 2. Docusate. 3. Vibramycin. 4. Metformin. 5. MiraLAX. 6. P.r.n. hydrocodone. ALLERGIES: NO KNOWN DRUG ALLERGIES. PAST SURGICAL HISTORY: Perirectal abscess I and D in September with fistulotomy in January. He has also undergone prostate and back surgery. FAMILY HISTORY: He has a family history of diabetes. SOCIAL HISTORY: He does not smoke, drink, or use illicit drugs. Daughter is at the bedside. REVIEW OF SYSTEMS: Ten-system review of systems is negative except per HPI. PHYSICAL EXAMINATION: VITAL SIGNS: The patient is afebrile. Heart rate 70, respirations 19, 98% saturated on room air, and blood pressure 102/55. GENERAL: Reveals a healthy-appearing elderly gentleman in no acute distress. He is not toxic or flushed in appearance, jaundiced, or icteric. He is not particularly pale. HEENT: Unremarkable. Pupils are equal. Extraocular movements are intact and facial movements are symmetric. NECK: Supple without lymphadenopathy or thyroid nodules. HEART: Regular in its rate and rhythm without murmurs, rubs, or gallops. LUNGS: Clear to auscultation bilaterally. ABDOMEN: Soft, nontender and nondistended with no palpable masses or hernias. EXTREMITIES: Warm and well perfused without significant edema PERIANAL: Reveals a large scar along the left perianal region consistent with history of fistulotomy. The central portion of the scar has healed, but he has two large granulomas at either end, one near the anal verge and one more superiorly on the buttock. The more superior area is partially epithelialized, and there is an open tract extending several centimeters into the subcutaneous tissues caudally. The inferior granuloma extends over the skin in multiple directions and also has a subcutaneous tract extending several centimeters cephalad. ASSESSMENT: Status post fistulotomy with partially healed fistula, which still extends into the subcutaneous tissues several centimeters. This is chronically draining and causing external granulomas. I have recommended treating the external granulomas with silver nitrate to try and get these back flush with the skin, so they can reepithelialize and heal. I also recommended packing the internal tracts to try to get these to heal from the inside to the outside because if they continue to chronically drain, then the external granulomas will not heal. This was performed as recommended. Silver nitrate was applied to both exuberant granulomas, and the internal portions of the fistulous tracts were packed with quarter-inch iodoform. The patient tolerated this well. Wound care is going to see him daily for replacement of the packing. We will likely need to treat the granulomas with silver nitrate several times to get them back flush with the skin. Job ID: [id number] MTDD
--- NOTE | 2020-04-20 06:22 | PDOC.FM ---
- Subjective Subjective: Pt resting comfortably. Complains of continued bleeding, but denies any pain. Has had a bowel movement. Tolerating diet, ambulating well. - Objective Vital Signs & Weight: Vital Signs (12 hours) Temp Pulse Resp BP Pulse Ox 04/20/20 04:00 97.3 F L 68 16 108/66 100 04/20/20 00:00 97.9 F 66 16 102/63 99 04/19/20 20:00 98 04/19/20 19:51 97.2 F L 72 18 115/72 98 Weight Admit Weight 61.689 kg Weight 62 kg I&O: 04/18/20 04/19/20 04/20/20 06:59 06:59 06:59 Intake Total 325 940 250 Balance 325 940 250 Result Diagrams: 04/20/20 05:39 04/20/20 07:34 Phys Exam - Physical Examination Constitutional: NAD Neck: supple Respiratory: no wheezing, clear to auscultation bilateral Cardiovascular: RRR, no significant murmur Gastrointestinal: soft, non-tender Musculoskeletal: no edema Neurological: non-focal Psychiatric: normal affect Skin: no rash Deviation from normal: minimal blood noted on bandages around buttocks Dx/Plan - Plan Plan: 74YOM with a PMH notable for MM with chronic pancytopenia and DMII presenting for evaluation for perirectal pain. Perirectal masses: - tachycardic in 120s, WBC of 3.9, deemed septic from a possible perirectal infection; no overt drainable fluid collection noted on exam, per patient report, or on CT. - tachycardia resolved prior to initiation of abx & no fluids were given for resuscitation - hx of perirectal abscess I&D in September 2019 and fistulotomy in January - s/p blood culture draw & broad spectrum IV abx in EDW, will not continue. - Curbside consulted general surgeon on 04/17: patient was not actively bleeding at that time, recommended patient keep upcoming appt with Dr. Benito - Contacted primary surgeon, Dr. Benito: follow-up in office if stable but otherwise defer to director of clinical applications surgeon - General Surgery Consulted on 04/19: silver nitrate to be used on external granulomas and wound care to pack internal tracts with iodoform, change daily - Oncology, Dr Morejon, consulted: unclear if mass is neoplastic vs granulation tissue. Transfuse RBCs to Hg>8 - PO doxy for cellulitis & proctocolitis noted on CT - PRN [place] for pain control. Proctocolitis: - Noted on CT scan - patient denies any GI complaints - PO doxy Pancytopenia: - WBC 3.9 > 3.1 > 3.7 - Hgb 6.6 > 9.4 > 8.7; s/p 1 unit PRBCs on 04/17 and 2 units of PRBCs on 04/18 - Plts 21 > 19 > 47 > 57; s/p 1U platelets on 04/18 - Oncology, Dr. Morejon consulted Acute on chronic blood loss anemia: - Hgb 6.6 > 9.4 > 8.7 - s/p 1U PRBCs in the ED 04/17 and 2U PRBCs on 04/18 Multiple Myeloma: - Aware, follows closely with Dr. Morejon - Not taking immunosuppressants right now per his instructions. Will continue to hold while inpatient. - Oncology: sent patient to ED for evaluation after seeing him in the office on 04/17 - Dr. Morejon consulted on 04/18 DMII: - Aware, continue home metformin. Dispo: s/p 3 units PRBCs and 1 unit of platelets, will continue to monitor on medical, oncology and general surgery consulted, will likely need outpatient wound care and f/u with gen surg as outpatient
[2020-04-20 06:26] LABS: #Lymphocytes 0.9 thou/uL (1.20-3.40); #Monocytes 0.2 thou/uL (0.11-0.59); #Neutrophils 1.8 thou/uL (1.40-6.50); %Basophils 0.7 % (0.0-1.0); %Eosinophils 0.8 % (0.0-10.0); %Monocytes 6.7 % (0.0-10.0); %Neutrophils 61.8 % (42.0-75.0); Hemoglobin 8.9 g/dL (14.0-18.0); Mean Corpuscular HGB CONC 35.7 g/dL (32.0-36.0); Mean Corpuscular Hemoglobin 33.5 pg (27.0-31.0); Mean Corpuscular Volume 93.9 fL (78.0-98.0); Mean Platelet Volume 10.1 fL (7.4-10.4); Platelet Count 44 thou/uL (130-400); RBC Distribution Width 21.6 % (11.5-14.5); Red Blood Cell (RBC) Count 2.66 mill/uL (4.70-6.10); White Blood Cell (WBC) Count 2.9 thou/uL (4.8-10.8)
[2020-04-20 08:03] LABS: Glucose 98 mg/dL (83-110)
[2020-04-20] MEDS ORDERED: Benzonatate 100 MG CAP PO PRN (08:26)
[2020-04-20] MEDS ORDERED: Cetirizine HCl 10 MG TAB PO SCH (09:00)
[2020-04-20] MEDS: Doxycycline 100 MG CAP PO SCH ×2 (09:05→20:13)
[2020-04-20] MEDS: Docusate Calcium (SURFAK) 240 MG CAP PO SCH ×2 (09:05→20:15)
[2020-04-20] MEDS: metFORMIN 500 MG TAB PO SCH ×2 (09:06→20:14)
[2020-04-20] MEDS: Loratadine 10 MG TAB PO SCH (09:06)
[2020-04-20] MEDS: HYDROcodone/Acetaminophen 10/325 mg Tablet PO PRN ×3 (09:08→20:13)
[2020-04-20] MEDS: Acetaminophen 325 MG TAB PO PRN (11:13)
[2020-04-20 12:10] LABS: Glucose 90 mg/dL (83-110)
--- NOTE | 2020-04-20 12:45 | PDOC.GSPN ---
Surgery Progress Note: Subj - Subjective Narrative: Seen with wound care team today. The granulomas are slightly smaller since treatment with silver nitrate. This was repeated. The tract does connect between the 2 granulomas and will be packed from both ends. Hopefully we can get this to heal from the inside to the outside and once the granulomas are flush with the skin this should re-epithelialize. Family will need training on wound care and home health would likely also be helpful. Surgery Progress Note: Obj - Vital signs Vital signs: Vital Signs - Most Recent Temp Pulse Resp BP Pulse Ox 98.1 F 76 18 108/67 95 04/20/20 11:24 04/20/20 11:24 04/20/20 11:24 04/20/20 11:24 04/20/20 11:24 Surgery Progress Note: Results - Labs Result Diagrams: 04/20/20 05:39 04/20/20 11:38 Lab results: Laboratory Results - last 12 hr 04/20/20 04/20/20 04/20/20 05:39 07:34 11:38 WBC 2.9 L RBC 2.66 L Hgb 8.9 L Hct 24.9 L MCV 93.9 MCH 33.5 H MCHC 35.7 RDW 21.6 H Plt Count 44 L MPV 10.1 Neutrophils % 61.8 Neutrophils % (Manual) Not Reportable Lymphocytes % 30.0 Monocytes % 6.7 Eosinophils % 0.8 Basophils % 0.7 Neutrophils # 1.8 Lymphocytes # 0.9 L Monocytes # 0.2 Eosinophils # 0.0 Basophils # 0.0 Glucose 98 90 - Radiology Interpretation CT scan - pelvis Status: image reviewed by me, report reviewed by me (cellulitis & nonspecific myositis in left intergluteal region w/ no drainable fluid collection noted mural thickening in distal colon & rectum w/ fat stranding c/w proctocolitis)
[2020-04-20 17:01] LABS: Glucose 189 mg/dL (83-110)
[2020-04-20 21:40] LABS: Glucose 158 mg/dL (83-110)
[2020-04-21] MEDS: HYDROcodone/Acetaminophen 10/325 mg Tablet PO PRN ×2 (03:56→09:10)
--- NOTE | 2020-04-21 06:44 | PDOC.FM ---
- Subjective Subjective: Mr. Harden is doing well this morning. He denies pain, fever/chills, vomiting. He states he is having soft stools but that it is because of the bowel regimen we are giving him. He has continued to get OOB, void/stool without difficulty, and change the dressings on his perirectal lesions. - Objective Vital Signs & Weight: Vital Signs (12 hours) Temp Pulse Resp BP Pulse Ox 04/21/20 04:00 97.8 F 76 16 112/68 98 04/20/20 20:33 99 04/20/20 20:00 97.6 F 81 18 130/79 99 Weight Admit Weight 61.689 kg Weight 62 kg I&O: 04/19/20 04/20/20 04/21/20 06:59 06:59 06:59 Intake Total 940 250 830 Balance 940 250 830 Result Diagrams: 04/21/20 06:55 04/21/20 07:15 Phys Exam - Physical Examination Constitutional: NAD Neck: supple Respiratory: clear to auscultation bilateral Cardiovascular: RRR, no significant murmur Gastrointestinal: soft Musculoskeletal: no edema Neurological: non-focal, moves all 4 limbs Psychiatric: normal affect, A&O x 3 Deviation from normal: Perirectal granulomas Dx/Plan - Plan Plan: 74YOM with a PMH notable for MM with chronic pancytopenia and DMII presenting for evaluation for perirectal pain. Perirectal masses - hx of perirectal abscess I&D in September 2019 and fistulotomy in January - BCx neg - Curbside consulted general surgeon on 04/17: patient was not actively bleeding at that time, recommended patient keep upcoming appt with Dr. Benito - Contacted primary surgeon, Dr. Benito: follow-up in office if stable but otherwise defer to operations and maintenance technican surgeon - General Surgery Consulted on 04/19: silver nitrate to be used on external granulomas and wound care to pack internal tracts with iodoform, change daily - Will need to set up home health and train family to change dressings. CM consulted - Oncology, Dr Morejon, consulted: unclear if mass is neoplastic vs granulation tissue; d/c MM tx. Transfuse RBCs to Hg>8 - PO doxy for cellulitis & proctocolitis noted on CT - PRN [place] for pain control. Proctocolitis - Noted on CT scan - patient denies any GI complaints - PO doxy Pancytopenia - WBC 3.9 > 3.1 > 3.7 > 3.3 - Hgb 6.6 > 9.4 > 8.7 > 8.9; s/p 1 unit PRBCs on 04/17 and 2 units of PRBCs on 04/18 - Plts 21 > 19 > 47 > 57 > 38; s/p 1U platelets on 04/18 - Oncology, Dr. Morejon consulted Acute on chronic blood loss anemia - Hgb 6.6 > 9.4 > 8.7 > 8.9 - Transfusions as above Multiple Myeloma - Aware, follows closely with Dr. Morejon - Not taking immunosuppressants right now per his instructions. Will continue to hold while inpatient. - Oncology: sent patient to ED for evaluation after seeing him in the office on 04/17 - Dr. Morejon consulted on 04/18 DMII - Aware, continue home metformin. Dispo: s/p 3 units PRBCs and 1 unit of platelets, will continue to monitor on medical. Oncology and general surgery consulted, will likely need outpatient wound care and f/u with gen surg as outpatient
[2020-04-21 07:06] LABS: #Basophils 0.1 thou/uL (0.0-0.2); #Eosinphils 0.1 thou/uL (0.0-0.7); #Lymphocytes 1.2 thou/uL (1.20-3.40); #Monocytes 0.2 thou/uL (0.11-0.59); #Neutrophils 1.9 thou/uL (1.40-6.50); %Basophils 1.7 % (0.0-1.0); %Eosinophils 1.6 % (0.0-10.0); %Lymphocytes 35.3 % (21.0-51.0); %Monocytes 5.4 % (0.0-10.0); %Neutrophils 56.1 % (42.0-75.0); Hemoglobin 8.9 g/dL (14.0-18.0); Mean Corpuscular HGB CONC 34.5 g/dL (32.0-36.0); Mean Corpuscular Hemoglobin 31.7 pg (27.0-31.0); Mean Platelet Volume 11.3 fL (7.4-10.4); Platelet Count 38 thou/uL (130-400); RBC Distribution Width 21.4 % (11.5-14.5); Red Blood Cell (RBC) Count 2.82 mill/uL (4.70-6.10); White Blood Cell (WBC) Count 3.3 thou/uL (4.8-10.8)
[2020-04-21 07:37] LABS: Glucose 88 mg/dL (83-110)
[2020-04-21] MEDS: Loratadine 10 MG TAB PO SCH (09:08)
[2020-04-21] MEDS: Doxycycline 100 MG CAP PO SCH (09:08)
[2020-04-21] MEDS: metFORMIN 500 MG TAB PO SCH (09:08)
[2020-04-21] MEDS: Docusate Calcium (SURFAK) 240 MG CAP PO SCH (09:09)
--- NOTE | 2020-04-21 11:48 | PDOC.GSPN ---
Surgery Progress Note: Subj - Subjective Narrative: Wound looks better. The granulomas are smaller. The inferior one is almost flush with the skin now. A little bit of bloody drainage with removal of the packing. The family is going to be instructed in packing the wound. He is going to follow-up in the outpatient wound care center for continued management. He will require multiple treatments with silver nitrate to the protuberant granulomas to get these back down to the skin level. He is to follow-up with Dennis Benito as scheduled. Surgery Progress Note: Obj - Vital signs Vital signs: Vital Signs - Most Recent Temp Pulse Resp BP Pulse Ox 97.7 F 68 18 120/69 99 04/21/20 08:17 04/21/20 08:17 04/21/20 08:17 04/21/20 08:17 04/21/20 09:07 Surgery Progress Note: Results - Labs Result Diagrams: 04/21/20 06:55 04/21/20 07:15 Lab results: Laboratory Results - last 12 hr 04/17/20 04/21/20 04/21/20 11:39 06:55 07:15 WBC 3.3 L RBC 2.82 L Hgb 8.9 L Hct 25.9 L MCV 92.0 MCH 31.7 H MCHC 34.5 RDW 21.4 H Plt Count 38 L MPV 11.3 H Neutrophils % 56.1 Neutrophils % (Manual) Not Reportable Lymphocytes % 35.3 Monocytes % 5.4 Eosinophils % 1.6 Basophils % 1.7 H Neutrophils # 1.9 Lymphocytes # 1.2 Monocytes # 0.2 Eosinophils # 0.1 Basophils # 0.1 Glucose 88 Crossmatch See Detail - Radiology Interpretation CT scan - pelvis Status: image reviewed by me, report reviewed by me (cellulitis & nonspecific myositis in left intergluteal region w/ no drainable fluid collection noted mural thickening in distal colon & rectum w/ fat stranding c/w proctocolitis)
[2020-04-21 12:02] LABS: Glucose 120 mg/dL (83-110)
--- NOTE | 2020-04-21 12:07 | PRG ---
DATE OF SERVICE: 04/21/2020 The patient has really unchanged. He is still getting wound care. We discussed this with the surgeon and it sounds like as long as he has family who can do dressing changes daily and they are ready to discharge him on doxycycline with outpatient wound care and then eventually follow up with surgery. Job ID: [id number]
--- NOTE | 2020-04-21 13:31 | PRG ---
DATE OF SERVICE: 04/20/2020 Please see the note from Dr. Pizano, for which I agree. The patient was seen, evaluated, discussed, and examined with the residents by bedside, with the help of translations. Basically still having some bleeding around the rectal areas. Unclear if this represents granulomas and tissue from previous fistulas. I do not think this is a metastatic or has anything to do with the multiple myeloma. After 3 units of blood, his hemoglobin is up to 8.9, white count is okay at 2.9, and platelets are a little bit better at 44, when he came in it was 19 and that is because he is transfused both blood and platelets. He is on doxycycline, really just kind of waiting Surgery's recommendations as far as wound care, packing, etc., and eventually, will follow up with his general surgeon, Dr. Benito. Job ID: [id number]
[2020-04-21 13:56] VITALS: BP 132/78; TEMP 97.8
--- NOTE | 2020-04-21 19:18 | DIS ---
DATE OF ADMISSION: 04/17/2020 DATE OF DISCHARGE: 04/21/2020 RESIDENT: Namita Esteves MD ADMITTING ATTENDING: Kayla Carrera MD DISCHARGE ATTENDING: Craig Avendaño MD CONSULT: General Surgery, Dr. Lay. PROCEDURES: Transfusion of 1 unit of packed red blood cells on 04/17, 2 units of packed red blood cells on 04/18, and 1 unit of platelets on 04/18. PRIMARY DIAGNOSES: Perirectal masses with surrounding mild cellulitis, proctocolitis, and acute on chronic blood loss anemia. SECONDARY DIAGNOSES: Multiple myeloma with chronic pancytopenia and type 2 diabetes. DISCHARGE MEDICATIONS: 1. Doxycycline 100 mg p.o. b.i.d. 2. Claritin 10 mg p.o. daily. 3. Metformin 500 mg p.o. b.i.d. 4. [place] 10/325 two tablets p.o. q.6 h. p.r.n. DISCONTINUED MEDICATIONS: Revlimid 10 mg p.o. daily. HISTORY OF PRESENT ILLNESS/HOSPITAL COURSE: This is a 74-year-old male, who presented to the ED for pain by his rectum. He was initially diagnosed with and treated for a rectal abscess in September of 2019 with incomplete healing. His oncologist, Dr. Morejon, had held his multiple myeloma medication for the past month in an attempt to allow the abscess to heal. On admission, he endorsed painful lumps on his bottom that intermittently bled, but denied any purulent drainage or systemic symptoms. He was started on p.o. doxycycline for treatment of cellulitis and proctocolitis was noted on CT. He was also pancytopenic on arrival, consistent with previous admissions. Ultimately, he had to be transfused a total of 3 units of PRBCs and 1 of platelets. On 04/19, General Surgery was consulted due to continued bleeding. There was also a concern for a need for biopsy in case the skin changes were a superficial malignant process. Dr. Lay evaluated the patient and found to be dermal tissue to the external granulomas caused by a chronically draining partially healed fistula from his recent fistulotomy. She initiated treatment by packing the tracts and treating the granulomas with silver nitrate. Her attempt, is for the tracts to heal from the inside out and to get the granulomas levels with the skin so that the chronic draining can resolve and granulomas can fully heal. She felt at this time that was the only treatment that would be necessary. The family was trained on the wound care dressing changes, and all their questions were answered regarding this process. The family members felt comfortable managing the dressing changes at home and Dr. Lay felt confident this was all the patient would need, so he was discharged. DISPOSITION: Stable. DISCHARGE INSTRUCTIONS: LOCATION: Home. DIET: Diabetic diet. ACTIVITY: As tolerated. FOLLOWUP: The patient is encouraged to follow up with [facility]. He is also encouraged to maintain his 05/[address] Benito, and to obtain earlier appointment if the family felt it was necessary. The patient was also encouraged to follow up with his PCP in 7 to 10 days. Job ID: [id number] MTDD
== END 2020-04-21 14:48 | disposition home or self-care (01) | DRG 348 ==
LOC: ERS 10:24 → OBSVTOIN 13:11 → T4-B 13:11
PROVIDERS: ADMIT Family Medicine; ATTEND Family Medicine
PROC: 30233N1 Transfusion of Nonautologous Red Blood Cells into Peripheral Vein, Percutaneous Approach (ICD-10-PCS; principal; 2020-04-17)
PROC: 30233R1 Transfusion of Nonautologous Platelets into Peripheral Vein, Percutaneous Approach (ICD-10-PCS; 2020-04-18)
PROC: 0W3P7ZZ Control Bleeding in Gastrointestinal Tract, Via Natural or Artificial Opening (ICD-10-PCS; 2020-04-19)
DX: K61.1 Rectal abscess (principal); D61.818 Other pancytopenia; C90.00 Multiple myeloma not having achieved remission; K51.30 Ulcerative (chronic) rectosigmoiditis without complications; D62 Acute posthemorrhagic anemia; Z20.828 Contact with and (suspected) exposure to other viral communicable diseases; K62.89 Other specified diseases of anus and rectum; E11.9 Type 2 diabetes mellitus without complications
CPT/HCPCS: 36415; 36416; 36430; 72193; 80048; 80053; 82248; 82947; 83605; 83615; 83883; 84100; 84550; 85007; 85025; 85027; 86850; 86900; 86901; 87040; 87635; 93005; 96365; 96367; 96375; G0378; J0692; J2270; J2405; J3370; P9016; P9035; Q9967; U0003

== ENCOUNTER 2020-05-02 09:53 | Observation (INO) | payer OTHER ==
[2020-05-02 10:29] LABS: Hemoglobin 6.8 g/dL (14.0-18.0); Mean Corpuscular HGB CONC 34.7 g/dL (32.0-36.0); Mean Corpuscular Hemoglobin 32.6 pg (27.0-31.0); Mean Platelet Volume 10.8 fL (7.4-10.4); Platelet Count 20 thou/uL (130-400); RBC Distribution Width 22.4 % (11.5-14.5); Red Blood Cell (RBC) Count 2.08 mill/uL (4.70-6.10); White Blood Cell (WBC) Count 2.4 thou/uL (4.8-10.8)
[2020-05-02 10:50] LABS: #Lymphocytes 0.6 thou/uL (1.20-3.40); #Monocytes 0.2 thou/uL (0.11-0.59); #Neutrophils 1.6 thou/uL (1.40-6.50); %Lymphocytes 25.3 % (21.0-51.0); %Monocytes 7.1 % (0.0-10.0); %Neutrophils 66.7 % (42.0-75.0); ALT (SGPT) 12 U/L (8-55); AST (SGOT) 12 U/L (5-34); Albumin 3.4 g/dL (3.4-4.8); Alkaline Phosphatase 96 U/L (40-110); Anion Gap 12 mmol/L (10-20); Anisocytosis MODERATE=16-30 cells (100X) (0-5/hpf); BUN (Urea Nitrogen) 12 mg/dL (8.4-25.7); Bilirubin, Total 0.5 mg/dL (0.2-1.2); Calc. Creatinine Clearance 0 mL/min (70-130); Calcium 8.4 mg/dL (7.8-10.44); Carbon Dioxide 22 mmol/L (23-31); Chloride 104 mmol/L (98-107); Critical Call w/ Read Back NUR.LBY; Elliptocytes SLIGHT = 2-5 cells (100X) (0-1/hpf); Globulin 2.3 g/dL (2.4-3.5); Glucose 102 mg/dL (83-110); MDiff Complete? YES; Platelet Morphology Comment Appears Decreased; Potassium 3.5 mmol/L (3.5-5.1); Protein, Total 5.7 g/dL (5.8-8.1); Sodium 134 mmol/L (136-145)
--- NOTE | 2020-05-02 12:55 | PDOC.FPRHP ---
- History of Present Illness Chief Complaint: anemia History of Present Illness: 74yoM pmhx Multiple Myeloma followed by oncologist, Dr. Morejon, chronic pancytopenia, diabetes type 2, ED return for anemia and bleeding from perirectal mass. Patient was recently admitted to the hospital 04/17-04/21 for blood transfusion for acute on chronic blood loss anemia and bleeding perirectal masses with cellulitis and proctocolitis. 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 Lay. FU with Dr. Benito outpt rec surgery for ostomy placement but family delayed tx for second opinion. Patient was seen at [facility] clinic 2 days ago for CBC and referral for second opinion. Lab results came back today showing Hgb 7.2 and patient was still bleeding so they were directed to the go to the ED. Here the patient denies lgiht-headedness, dizziness, feeling weak, shortness of breath, abdominal pain, fever/chills. Does note mild pain at the site of the mass. - Allergies/Adverse Reactions Allergies Allergy/AdvReac Type Severity Reaction Status Date / Time No Known Allergies Allergy Verified 05/02/20 16:10 - Home Medications Medication Instructions Recorded Confirmed Type metFORMIN [Glucophage] 500 mg PO BID 04/14/18 05/02/20 History HYDROcodone Bit/APAP [[place]one] 2 tab PO Q6HR PRN 03/30/19 05/02/20 History Doxycycline [Vibramycin] 100 mg PO BID #10 cap 04/19/20 05/02/20 Rx Metronidazole [metroNIDAZOLE] 500 mg PO BID 05/02/20 05/02/20 History - History PMHx: multiple myeloma with chronic anemia & thrombocytopenia as well as DMII PSHx: anal fistulotomy (01/2020) and perirectal abscess I&D (09/2019), prostate & back Sx FHx: brothers- DMII Social: No TAD. Lives at home with and daughters. - Review of Systems General: denies: fever/chills, weight/appetite/sleep changes Eyes: denies: eye pain, vision changes ENT: denies: nasal congestion, rhinorrhea Respiratory: denies: cough, congestion Cardiovascular: denies: chest pain, palpitation, edema Gastrointestinal: denies: nausea, vomiting, diarrhea Genitourinary: denies: incontinence, dysuria, polyuria Skin: reports: lesions (perirectal mass). denies: rashes Musculoskeletal: reports: pain. denies: tenderness Neurological: denies: numbness, syncope, weakness - Vital signs BP: 130/67, Pulse: 79, Resp: 22, Temp: 98.1 (Oral), Pain: 8, O2 sat: 99 on (Room Air), Wt 56.2kg - Physical Exam Constitutional: NAD, awake, alert and oriented HEENT: normocephalic and atraumatic, PERRLA, EOMI Neck: supple, FROM Chest: no-tender to palpation Heart: RRR, normal S1/S2, no murmurs/rubs/gallops Lungs: CTAB, no respiratory distress, no wheezing Abdomen: soft, non-tender, bowel sounds present Musculoskeletal: normal structure, normal tone Neurological: no focal deficit, CN II-XII intact -Skin: Left-sided perirectal mass measuring ~ 2.5x2 respectively with mild superficial ulceration noted; no purulence or fluctuance appreciated Heme/Lymphatic: no purpura Psychiatric: normal mood and affect, good judgment and insight, intact recent and remote memory FMR H&P: Results - Labs Result Diagrams: 05/02/20 10:16 05/02/20 10:16 Lab results: WBC 2.4 thou/uL (4.8-10.8) L 05/02/20 10:16 Hgb 6.8 g/dL (14.0-18.0) L 05/02/20 10:16 Hct 19.5 % (42.0-52.0) L 05/02/20 10:16 MCV 94.0 fL (78.0-98.0) 05/02/20 10:16 Plt Count 20 thou/uL (130-400) L* 05/02/20 10:16 Neutrophils % 66.7 % (42.0-75.0) 05/02/20 10:16 Sodium 134 mmol/L (136-145) L 05/02/20 10:16 Potassium 3.5 mmol/L (3.5-5.1) 05/02/20 10:16 Chloride 104 mmol/L (98-107) 05/02/20 10:16 Carbon Dioxide 22 mmol/L (23-31) L 05/02/20 10:16 BUN 12 mg/dL (8.4-25.7) 05/02/20 10:16 Creatinine 0.79 mg/dL (0.7-1.3) 05/02/20 10:16 Glucose 102 mg/dL (83-110) 05/02/20 10:16 Calcium 8.4 mg/dL (7.8-10.44) 05/02/20 10:16 Total Bilirubin 0.5 mg/dL (0.2-1.2) 05/02/20 10:16 AST 12 U/L (5-34) 05/02/20 10:16 ALT 12 U/L (8-55) 05/02/20 10:16 Alkaline Phosphatase 96 U/L (40-110) 05/02/20 10:16 Serum Total Protein 5.7 g/dL (5.8-8.1) L 05/02/20 10:16 Albumin 3.4 g/dL (3.4-4.8) 05/02/20 10:16 - EKG Interpretation EKG: SR FMR H&P: A/P - Plan Acute on chronic anemia 2/2 Perirectal Granuloma Previous admission 04/17-04/21: Dx perirectal granuloma 2/2 fistula drainage Hgb 6.8/ Platelets 29198 No apparent infection at this time - tranfused 1u pRBCs and 1 pack platelets - will monitor and replace as needed, maintain Hgb >7 - Outpatient recs by Dr. Benito were for Ostomy to be placed, family has been resistant to this - will consult surgery Pancytopenia - WBC 2.9 - Hgb 6.8, transfusing 1u pRBCs - Plts 15675, transfusing 1 pack platelets Multiple Myeloma - Aware, follows closely with Dr. Morejon - Not taking immunosuppressants right now per his instructions. Will continue to hold Hx Proctocolitis - s/p doxycycline x 5 days after recent d/c - will continue to monitor for GI sxs DMII - Aware, continue home metformin. Codes status: Full DVT PPx: SCDs Dispo: admit med obs, LOS anticpated <48 hours FMR H&P: Upper Level - Plan Date/Time: 05/02/20 1255 IHarshad DO, have evaluated this patient and agree with findings/plan as outlined by research intern resident. Pertinent changes/additions are listed here. 74 M w pmhx of MM and perirectal fistulas and granuloma formation presents for bleeding recently admitted for proctocolitis, treated with abx, seen by surgery and wound care provided with continuation in outpt setting. He was seen yesterday in clinic with complaints of continued rectal bleeding. hb reported as 7.2 in clinic, continued bleeding overnight. Currently he denies any pain, presyncope, sob, fever or chills. He reports almost continuous draining from his rectum, but no pain. VSS, cbc sig for hb 6.8, plt 20, wbc 2. he was given 1u prbc and ffp. CTAB, RRR, abd nttp. perirectal granulomas visualized with granulated tissue base, no purulence or surrounding erythema. For his hemorrhagic anemia we will monitor and replace as needed to maintain hb>7. We will consult surgery for evaluation. In the past they have recommended colostomy to allow for healing, pt and family have been resistant to this. No apparent acute infection at this time, we will hold off on abx. admit to [facility] for monitoring and surgical consult. Addendum - Attending - Attending Attestation Date/Time: 05/02/20 1595 I personally evaluated the patient and discussed the management with Dr. Baez/Uche. I agree with the History, Examination, Assessment and Plan documented above with any addition or exceptions noted below. Patient here for anemia in association with chronic bleeding mass near his rectum. Transfuse as needed. He is overall asymptomatic. Will discuss with surgery so the family can make decision about nursing home management about this mass given they have discussed treatment in the outpatient setting.
[2020-05-02] MEDS ORDERED: Dextrose 50% Abboject 50 ML SYRINGE SLOW IVP PRN (13:56)
[2020-05-02] MEDS ORDERED: Dextrose 5% in Water 1,000 ML IV PRN (13:56)
[2020-05-02] MEDS ORDERED: HumaLOG 300 UNITS/3 ML VIAL SC PRN ×2 (13:56)
[2020-05-02 16:23] VITALS: BMI 26.0
[2020-05-02 19:30] LABS: Hemoglobin 7.4 g/dL (14.0-18.0); Platelet Count 38 thou/uL (130-400)
[2020-05-02] MEDS: metFORMIN 500 MG TAB PO SCH (20:33)
[2020-05-02] MEDS: HYDROcodone/Acetaminophen 10/325 mg Tablet PO PRN (20:37)
[2020-05-03 03:17] LABS: SARS-CoV-2 MS2 Positive; SARS-CoV-2 N Gene Negative; SARS-CoV-2 S Gene Negative; SARS-CoV-2 by NAA Not Detected (NotDetected); SARS-CoV-2 orf1ab Negative
--- NOTE | 2020-05-03 06:29 | PDOC.FM ---
- Subjective Subjective: Patient is resting comfortably in bed. No acute concerns. Denies chest pain, shortness of breath, light-headed. States his pain at the rectal mass is mild. - Objective MAR Reviewed: Yes Vital Signs & Weight: Vital Signs (12 hours) Temp Pulse Pulse Resp BP BP Pulse Ox 05/03/20 04:00 97.8 F 65 16 110/64 98 05/03/20 00:00 98.4 F 75 16 102/58 L 99 05/02/20 20:29 97.7 F 86 18 120/71 98 Weight Weight 60.555 kg I&O: 05/01/20 05/02/20 05/03/20 06:59 06:59 06:59 Intake Total 250 Balance 250 Result Diagrams: 05/03/20 06:10 05/02/20 10:16 Phys Exam - Physical Examination Constitutional: NAD HEENT: PERRLA, moist MMs Respiratory: no wheezing, clear to auscultation bilateral Cardiovascular: RRR, no significant murmur Gastrointestinal: soft, non-tender, positive bowel sounds Musculoskeletal: no edema Neurological: non-focal, moves all 4 limbs Deviation from normal: small serosanguinous weeping from perirectal mass Dx/Plan - Plan Plan: Acute on chronic anemia 2/2 Perirectal Granuloma Previous admission 04/17-04/21: Dx perirectal granuloma 2/2 fistula drainage Hgb 6.8 --> 7.4> 8.3/ Platelets 30445--> 12474> 84149 No apparent infection at this time - s/p tranfused 1u pRBCs and 1 pack platelets 05/02 - will monitor and replace as needed, maintain Hgb >7 - Outpatient recs by Dr. Benito were for Ostomy to be placed, family has been resistant to this - Gen Surg consulted, Dr. Benito 05/02 - recommends surgery for ostomy placement, however unable to operate until Saturday 04/07; options include d/c with pain meds & abx vs keeping patient here until wednesday Pancytopenia - WBC 2.9 > 2.7 - Hgb 6.8 > 8.3, s/p transfused 1u pRBCs 05/03 - Plts 49758 > 46449, s/p transfused 1 pack platelets Multiple Myeloma - Aware, follows closely with Dr. Morejon - Not taking immunosuppressants right now per his instructions. Will continue to hold Hx Proctocolitis - s/p doxycycline x 5 days after recent d/c - will continue to monitor for GI sxs DMII - Aware, continue home metformin. Codes status: Full DVT PPx: SCDs Dispo: admit med obs, likely d/c patient today Addendum - Attending - Attending Attestation Date/Time: 05/03/20 3147 I personally evaluated the patient and discussed the management with Dr. Baez. I agree with the History, Examination, Assessment and Plan documented above with any addition or exceptions noted below. H/H improved. Likely surgery on Wednesday but patient otherwise stable. Should be stable for discharge today. Will discuss with family.
[2020-05-03 06:39] LABS: #Monocytes 0.2 thou/uL (0.11-0.59); #Neutrophils 1.4 thou/uL (1.40-6.50); %Basophils 0.1 % (0.0-1.0); %Eosinophils 0.9 % (0.0-10.0); %Lymphocytes 38.3 % (21.0-51.0); %Monocytes 8.7 % (0.0-10.0); Hemoglobin 8.3 g/dL (14.0-18.0); Mean Corpuscular HGB CONC 33.5 g/dL (32.0-36.0); Mean Corpuscular Volume 92.7 fL (78.0-98.0); Platelet Count 65 thou/uL (130-400); RBC Distribution Width 21.8 % (11.5-14.5); Red Blood Cell (RBC) Count 2.67 mill/uL (4.70-6.10); White Blood Cell (WBC) Count 2.7 thou/uL (4.8-10.8)
[2020-05-03] MEDS: metFORMIN 500 MG TAB PO SCH (08:39)
[2020-05-03] MEDS: HYDROcodone/Acetaminophen 10/325 mg Tablet PO PRN ×2 (08:39→14:50)
--- NOTE | 2020-05-03 09:27 | PRG ---
DATE OF SERVICE: 05/03/2020 HISTORY: The patient is a 74-year-old male known to me with multiple myeloma and pancytopenia including a platelet count of 20,000 and a white count of 2, who has an extensive perianal fistula/abscess. This has been treated for months now with wound care, I and D, antibiotics, but it would not heal due to his immunosuppression. I saw him in the office a couple of days ago and recommended he have a diverting colostomy to divert the fecal stream away from this as well as debridement. He did not want to do that, so I sent him for a 2nd opinion in [place]. I do not know if he went to [place], but he showed back up in the emergency room yesterday afternoon, saying he was ready for the surgery. The problem is I have no OR time. The operating room is overwhelmingly full. There is absolutely no where to put him before at least 12 or 1 o'clock in the morning and this is not a life or emergency as it has been going on for so long. I talked to the family practice physicians and the operating room, the earliest that I could get a time to do this is Wednesday. The option is he can stay in the hospital on antibiotics, he can go home on oral antibiotics, he can go to another hospital, but at this point, we have no where to do his surgery. Job ID: [id number]
[2020-05-03 15:38] VITALS: BP 123/74; TEMP 97.7
--- NOTE | 2020-05-07 13:07 | DIS ---
DATE OF ADMISSION: 05/02/2020 DATE OF DISCHARGE: 05/03/2020 RESIDENT: Estrellita Baez DO. ADMIT ATTENDING: Michel Lancaster MD DISCHARGE ATTENDING: Michel Lancaster MD CONSULT: Surgery, Dr. Benito. PROCEDURES: None. PRIMARY DIAGNOSES: [id number] anemia secondary to perirectal granuloma. SECONDARY DIAGNOSES: Pancytopenia, multiple myeloma, history of proctocolitis, type 2 diabetes. DISCHARGE MEDICATIONS: 1. Clindamycin 450 mg p.o. t.i.d.. 2. Doxycycline 100 mg p.o. b.i.d. 3. Metformin 500 mg p.o. b.i.d. 4. [place] 2 tablets p.o. q.6 hours p.r.n. for pain. DISCONTINUED MEDICATIONS: metronidazole 500 mg p.o. b.i.d. HISTORY OF PRESENT ILLNESS/HOSPITAL COURSE: This patient is a 74-year-old with history of multiple myeloma followed by oncologist, Dr. Morejon, who has chronic pancytopenia, type 2 diabetes, who returns for anemia and bleeding from a perirectal mass. The patient was recently admitted to the hospital on 04/17 through 04/21 for blood transfusions for [id number] blood loss anemia and bleeding perirectal masses with cellulitis, and proctocolitis. 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 Lay. Follow up with Dr. Benito as an outpatient - he recommended surgery for ostomy placement with family though delayed treatment for a second opinion. Was seen at the pain clinic 2 days ago where they got a CBC and a referral for a second opinion. Labs came back today showing a hemoglobin of 7.2. The patient was still bleeding, so he was directed to go to the ED. The patient denied lightheaded, dizzy, feeling weak, short of breath, abdominal pain, or fever. Does note mild pain at the site of the mass. The patient was also transfused a unit of packed red blood cells and packed platelets. Consulted Surgery, Dr. Benito. The following morning, Dr. Benito came and discussed options with the patient. The patient decided on surgery. Dr. Benito did not have an opening in the OR until Wednesday, so discussed options of staying in the hospital on antibiotics versus going home on oral antibiotics. We discussed this with the patient and his family member and they decided to go home on antibiotics for 2 days and come back on Wednesday to be admitted to Dr. Benito's team to get blood prior to the surgery. The patient's hemoglobin had gone up to 8.3, hematocrit 24.8, platelet count 65, and the patient was stable for discharge with directions to return to the hospital on Wednesday to be directly admitted to Dr. Benito's team. DISPOSITION: Stable. DISCHARGE INSTRUCTIONS: 1. Location: Home. 2. Diet: Regular. 3. Activity: Ad efra. 4. Return to the hospital in 2 days on Wednesday, 05/06 to be admitted for surgery the following day. 5. Follow up with his primary care physician in 7 to 14 days. Job ID: [id number] MTDD
--- NOTE | 2020-05-11 15:17 | EKG ---
Test Reason : Blood Pressure : / mmHG Vent. Rate : 071 BPM Atrial Rate : 071 BPM P-R Int : 148 ms QRS Dur : 112 ms QT Int : 418 ms P-R-T Axes : 063 -13 014 degrees QTc Int : 454 ms Normal sinus rhythm Normal ECG Confirmed by OLIVIER ROSS DO ([id number]), editor managing director BERNICE TYLER ([id number]) on 05/11/2020 3:17:20 PM Referred By: Confirmed By:OLIVIER ROSS DO
== END 2020-05-03 15:35 | disposition home or self-care (01) ==
LOC: ERS 09:53 → T4-A 12:23
PROVIDERS: ADMIT Student in an Organized Health Care Education/Training Program; ATTEND Student in an Organized Health Care Education/Training Program
DX: K62.89 Other specified diseases of anus and rectum (principal); D62 Acute posthemorrhagic anemia; K61.0 Anal abscess; K62.5 Hemorrhage of anus and rectum; D61.818 Other pancytopenia; C90.00 Multiple myeloma not having achieved remission; E11.9 Type 2 diabetes mellitus without complications; D69.6 Thrombocytopenia, unspecified; Z79.2 Long term (current) use of antibiotics; Z79.84 Long term (current) use of oral hypoglycemic drugs; Z20.828 Contact with and (suspected) exposure to other viral communicable diseases
CPT/HCPCS: 36415; 36416; 36430; 80053; 85025; 86850; 86900; 86901; 87635; 93005; G0378; P9016; P9035; U0003

== ENCOUNTER 2020-06-14 08:41 | Day surgery (SDC) | payer OTHER ==
[2020-06-14] MEDS ORDERED: diphenhydrAMINE 25 MG CAP PO SCH (09:00)
[2020-06-14] MEDS ORDERED: Acetaminophen 500 MG TAB PO SCH (09:00)
[2020-06-14] MEDS ORDERED: Sodium Chloride 0.9% 20 ML ONE (09:03)
[2020-06-14 13:29] VITALS: BP 132/63; TEMP 97.8
== END 2020-06-14 14:08 | disposition home or self-care (01) ==
LOC: ONC/OP 08:41
PROVIDERS: ATTEND Internal Medicine Hematology & Oncology
PROC: 30233N1 Transfusion of Nonautologous Red Blood Cells into Peripheral Vein, Percutaneous Approach (ICD-10-PCS; principal; 2020-06-14)
DX: D64.9 Anemia, unspecified (principal); D69.6 Thrombocytopenia, unspecified
CPT/HCPCS: 36430; 86850; 86900; 86901; P9016; Q0163

== ENCOUNTER 2022-06-19 09:02 | Outpatient (CLI) | payer OTHER | END 2022-06-19 09:03 | disposition home or self-care (01) | LOC: ULT 09:02 | PROVIDERS: ATTEND Family Medicine | DX: R10.11 Right upper quadrant pain (principal); R06.02 Shortness of breath; I08.3 Combined rheumatic disorders of mitral, aortic and tricuspid valves; D13.5 Benign neoplasm of extrahepatic bile ducts | CPT/HCPCS: 76705; 93306 ==